=== PATIENT | female | born 1955 ===

== ENCOUNTER → 2016-10-01 | Outpatient (CLI) | payer OTHER | LOC: FIMAGING 12:05 | PROVIDERS: ATTEND Surgery | DX: Z45.2 Encounter for adjustment and management of vascular access device (principal) ==

== ENCOUNTER → 2016-10-30 | Outpatient (CLI) | payer OTHER ==
[~2016-10-30] MED LIST: GADOBUTROL 10 ML VIAL IVP ONE
== END ==
LOC: FIMAGING 14:15
DX: C79.51 Secondary malignant neoplasm of bone (principal); C50.411 Malignant neoplasm of upper-outer quadrant of right female breast
CPT/HCPCS: A9585

== ENCOUNTER → 2017-02-05 | Outpatient (CLI) | payer OTHER | LOC: FIMAGING 15:32 | PROVIDERS: ATTEND Internal Medicine Hematology & Oncology | DX: M25.552 Pain in left hip (principal); M89.9 Disorder of bone, unspecified; Z85.3 Personal history of malignant neoplasm of breast ==

== ENCOUNTER → 2017-03-18 | Outpatient (CLI) | payer OTHER | LOC: FIMAGING 14:51 | PROVIDERS: ATTEND Internal Medicine Hematology & Oncology | DX: K59.00 Constipation, unspecified (principal) ==

== ENCOUNTER → 2017-07-15 | Outpatient (CLI) | payer OTHER | LOC: FIMAGING 15:53 | PROVIDERS: ATTEND Internal Medicine Hematology & Oncology | DX: C79.51 Secondary malignant neoplasm of bone (principal); R51 Headache; R41.0 Disorientation, unspecified; Z85.3 Personal history of malignant neoplasm of breast | CPT/HCPCS: A9585 ==

== ENCOUNTER 2017-08-04 08:32 | Outpatient (CLI) | payer OTHER ==
[~2017-08-04 08:32] MED LIST changes: +FLUMAZENIL 0.5 MG/5 ML MDV IVP PRN; -GADOBUTROL 10 ML VIAL IVP ONE; +MEPERIDINE 25 MG/ML SYR IVP PRN; +MIDAZOLAM 2 MG/2 ML VIAL IVP PRN; +NALOXONE HCL 0.4 MG/ML INJ IVP PRN; +NS 1,000 ML IV SCH; +fentaNYL 100 MCG/2 ML INJ IVP PRN
[2017-08-04] MEDS ORDERED: NALOXONE HCL 0.4 MG/ML INJ ONE (08:56)
[2017-08-04] MEDS ORDERED: MIDAZOLAM 2 MG/2 ML VIAL ONE (08:57)
[2017-08-04] MEDS ORDERED: FLUMAZENIL 0.5 MG/5 ML MDV IVP ONE (08:57)
[2017-08-04] MEDS ORDERED: fentaNYL 100 MCG/2 ML INJ ONE (08:57)
[2017-08-04] MEDS ORDERED: BUPIVACAINE 0.25% 30 ML SDV ONE (09:35)
[2017-08-04] MEDS ORDERED: LIDOCAINE 1% 300 MG/30 ML SDV ONE (09:35)
[2017-08-04] MEDS ORDERED: ONDANSETRON 4 MG/2 ML VIAL ONE (09:43)
--- NOTE | 2017-08-04 10:22 | PDPROPOC ---
Sedation Plan of Care Sedation Plan of Care: vital signs stable, mental status noted (alert and oriented), patient educated of risks, benefits, alternatives, patient can tolerate sedation ASA Classification: ASA 2 Planned drugs: fentanyl, midazolam Mallampati Score: Class 3 Mallampati Reference Image: Patient passed 3-3-2 rule?: Yes
--- NOTE | 2017-08-04 10:29 | PDGENHP ---
History & Physical Chief Complaint: Liver lesions. H/o breast cancer. Evaluate for metastatic disease History of Present Illness: Liver lesions. H/o breast cancer. Evaluate for metastatic disease Relevant Physical Exam: comfortable Cardiorespiratory Assessment: RRR, Clear lungs
[2017-08-04] MEDS ORDERED: ONDANSETRON 4 MG/2 ML VIAL IVP PRN (11:08)
[2017-08-04 11:43] VITALS: PULSE 73; RESP 12
[2017-08-04 12:37] VITALS: BP 108/66; O2SAT 96
== END 2017-08-04 14:35 | disposition home or self-care (01) ==
LOC: FIMAGING 08:32
PROVIDERS: ATTEND Internal Medicine Hematology & Oncology
PROC: 0FB13ZX Excision of Right Lobe Liver, Percutaneous Approach, Diagnostic (ICD-10-PCS; principal; 2017-08-04 11:15)
DX: C78.7 Secondary malignant neoplasm of liver and intrahepatic bile duct (principal); Z85.3 Personal history of malignant neoplasm of breast
CPT/HCPCS: J1642; J2250; J2310; J2405; J3010

== ENCOUNTER 2017-08-14 23:53 | Emergency (ER) | payer OTHER ==
[2017-08-15 00:01] VITALS: TEMP 98.6
[2017-08-15] MEDS ORDERED: ONDANSETRON 4 MG/2 ML VIAL ONE (00:30)
[2017-08-15] MEDS ORDERED: ONDANSETRON 4 MG/2 ML VIAL IVP ONE (00:43)
[2017-08-15] MEDS ORDERED: NS 1,000 ML IV ONE ×2 (00:43→02:10)
[2017-08-15 00:59] LABS: PLATELET COUNT 279 10^3/uL (150-400)
--- NOTE | 2017-08-15 01:10 | EDPHY ---
H & P Stated Complaint: N/V Time Seen by Provider: 08/15/17 00:43 HPI/ROS: HPI The patient presents with abdominal pain, nausea and vomiting which began at about 3:00 p.m. Today. She was at home and felt nauseated. She tried to eat something, however this induced multiple episodes of yellowish vomitus. She then developed lower abdominal pain which she describes as a intermittent cramping. She does not have any diarrhea. She was constipated about 1 week ago and took laxatives and has been feeling well since then. She has not had a fever. Her last chemotherapy was about 1 month ago and she is planning on starting a new regimen tomorrow. She does have known liver Mets. She was unable to take her pain medication today because of her vomiting and was concerned. The vomiting is also exacerbating bone pain that she has from her bone metastases REVIEW OF SYSTEMS Constitutional: No fever, no chills. Eyes: No discharge. ENT: No sore throat. Cardiovascular: No chest pain, no palpitations. Respiratory: No cough, no shortness of breath. Gastrointestinal: See HPI Genitourinary: No hematuria. Musculoskeletal: No back pain. Skin: No rashes. Neurological: No headache. PMHx: Breast cancer with mets to bone and liver Soc Hx: Lives at home with PHYSICAL General Appearance: Alert, no distress Eyes: Pupils equal and round no pallor or injection ENT, Mouth: Mucous membranes moist Respiratory: There are no retractions, lungs are clear to auscultation Cardiovascular: Regular rate and rhythm Gastrointestinal: Abdomen is soft and non-tender, no masses, bowel sounds normal Neurological: A&O, moves all extremities Skin: Warm and dry, no rashes Musculoskeletal: Neck is supple non tender Extremities: symmetrical, full range of motion Psychiatric: Patient is oriented X 3, there is no agitation Source: Patient Exam Limitations: No limitations - Personal History Current Tetanus/Diphtheria Vaccine: Unsure Current Tetanus Diphtheria and Acellular Pertussis (TDAP): Unsure - Medical/Surgical History Hx Asthma: No Hx Chronic Respiratory Disease: No Hx Diabetes: No Hx Cardiac Disease: No Hx Renal Disease: No Hx Cirrhosis: No Hx Alcoholism: No Hx HIV/AIDS: No Hx Splenectomy or Spleen Trauma: No Other PMH: Breast CA, mastectomy - Social History Smoking Status: Never smoked Constitutional: Initial Vital Signs Temperature (C) 37 C 08/14/17 23:57 Heart Rate 100 08/14/17 23:57 Respiratory Rate 16 08/14/17 23:57 Blood Pressure 134/91 H 08/14/17 23:57 O2 Sat (%) 94 08/14/17 23:57 O2 Delivery Mode Room Air O2 (L/minute) 2 Allergies/Adverse Reactions: corn Allergy (Verified 07/29/17 15:14) Home Medications: Medication Instructions Recorded Effexor 150 mg PO DAILY 07/29/17 LORAZEPAM 0.5 mg PO HS PRN 07/29/17 morphINE IR 15 mg (*) 15 mg PO BID 07/29/17 Promethazine HCl [Phenergan 25mg 25 mg PO Q6H PRN #20 tab 08/15/17 (*)] Promethazine HCl [Phenergan 25mg 25 mg PO Q6H PRN #20 tab 08/15/17 (*)] Medical Decision Making - Diagnostics Imaging Results: CT abdomen pelvis with IV contrast demonstrates small pulmonary nodules, liver Mets are present, multiple bone mets are present, discussed with Dr. Abdi of Radiology. Imaging: Discussed imaging studies w/ administrative hearing officer Radiologist Differential Diagnosis: 62-year-old female with known breast cancer on chemotherapy with metastatic disease presents with her complaining of nausea and vomiting for the last several hours had lower abdominal pain. On exam, vital signs are normal, mucous membranes are dry, abdominal exam demonstrates tenderness in her lower quadrants. Differential diagnosis includes gastroenteritis, small-bowel obstruction, appendicitis, worsening liver Mets, complication of liver biopsy such as intra- abdominal bleeding. In the emergency department, patient was given 2 L of IV fluid, Zofran, Phenergan with improvement in her symptoms. Labs were checked and were relatively unremarkable except for slight increase in her liver tests as compared to prior. CT scan of her abdomen pelvis was performed which showed no intra-abdominal pathology except for her known liver Mets. She does have several bony lesions from her breast cancer that she was already aware of and is currently taking morphine 4. I have offered her admission to the hospital, however she has declined. She would like to go home and recuperate there. I will send her home with Phenergan as she has taken Zofran before which did not help her much. - Data Points Laboratory Results: Laboratory Results 08/15/17 00:41 08/15/17 00:41 08/15/1723/18 00:41 00:41 WBC 8.46 10^3/uL 10^3/uL (3.80-9.50) RBC 4.83 10^6/uL 10^6/uL (4.18-5.33) Hgb 14.1 g/dL g/dL (12.6-16.3) Hct 42.3 % % (38.0-47.0) MCV 87.6 fL fL (81.5-99.8) MCH 29.2 pg pg (27.9-34.1) MCHC 33.3 g/dL g/dL (32.4-36.7) RDW 12.9 % % (11.5-15.2) Plt Count 279 10^3/uL 10^3/uL (150-400) MPV 9.4 fL fL (8.7-11.7) Neut % (Auto) 81.7 % H % (39.3-74.2) Lymph % (Auto) 11.8 % L % (15.0-45.0) [place] % (Auto) 5.8 % % (4.5-13.0) Eos % (Auto) 0.1 % L % (0.6-7.6) Baso % (Auto) 0.2 % L % (0.3-1.7) Nucleat RBC Rel Count 0.0 % % (0.0-0.2) Absolute Neuts (auto) 6.91 10^3/uL H 10^3/uL (1.70-6.50) Absolute Lymphs (auto) 1.00 10^3/uL 10^3/uL (1.00-3.00) Absolute Monos (auto) 0.49 10^3/uL 10^3/uL (0.30-0.80) Absolute Eos (auto) 0.01 10^3/uL L 10^3/uL (0.03-0.40) Absolute Basos (auto) 0.02 10^3/uL 10^3/uL (0.02-0.10) Absolute Nucleated RBC 0.00 10^3/uL 10^3/uL (0-0.01) Immature Gran % 0.4 % % (0.0-1.1) Immature Gran # 0.03 10^3/uL 10^3/uL (0.00-0.10) Sodium 140 mEq/L mEq/L (135-145) Potassium 4.2 mEq/L mEq/L (3.5-5.2) Chloride 103 mEq/L mEq/L (97-110) Carbon Dioxide 22 mEq/l mEq/l (22-31) Anion Gap 15 mEq/L mEq/L (8-16) BUN 9 mg/dL mg/dL (7-23) Creatinine 0.6 mg/dL mg/dL (0.6-1.0) Estimated GFR > 60 Glucose 112 mg/dL H mg/dL (70-100) Calcium 10.4 mg/dL mg/dL (8.5-10.4) Total Bilirubin 0.8 mg/dL mg/dL (0.1-1.4) Conjugated Bilirubin 0.4 mg/dL mg/dL (0.0-0.5) Unconjugated Bilirubin 0.4 mg/dL mg/dL (0.0-1.1) AST 57 IU/L H IU/L (14-46) ALT 56 IU/L H IU/L (9-52) Alkaline Phosphatase 128 IU/L H IU/L (38-126) Total Protein 8.3 g/dL H g/dL (6.3-8.2) Albumin 4.7 g/dL g/dL (3.5-5.0) Lipase 65 IU/L IU/L (23-300) Medications Given: Discontinued Medications Sodium Chloride (Ns) 1,000 mls @ 0 mls/hr IV ONCE ONE PRN Reason: Wide Open Stop: 08/15/17 00:44 Last Admin: 08/15/17 00:45 Dose: 1,000 mls Sodium Chloride (Ns) 1,000 mls @ 0 mls/hr IV EDNOW ONE; Wide Open PRN Reason: Protocol Stop: 08/15/17 02:11 Last Admin: 08/15/17 02:44 Dose: 1,000 mls Morphine Sulfate (Morphine) 2 mg IVP EDNOW ONE Stop: 08/15/17 00:45 Last Admin: 08/15/17 00:56 Dose: 2 mg Morphine Sulfate (Morphine) 4 mg IVP EDNOW ONE Stop: 08/15/17 01:30 Last Admin: 08/15/17 01:31 Dose: 4 mg Ondansetron HCl (Zofran) 4 mg IVP EDNOW ONE Stop: 08/15/17 00:44 Last Admin: 08/15/17 00:45 Dose: 4 mg Promethazine HCl (Phenergan 25 Mg Prepack #4) 1 btl TAKEHOME EDNOW ONE Stop: 08/15/17 04:20 Last Admin: 08/15/17 04:33 Dose: 1 btl Departure - Departure Disposition: Home, Routine, Self-Care Clinical Impression: Nausea & vomiting Qualifiers: Vomiting type: unspecified Vomiting Intractability: non-intractable Qualified Code(s): R11.2 - Nausea with vomiting, unspecified Condition: Good Instructions: Acute Nausea and Vomiting (ED) Additional Instructions: Please follow-up with your oncologist later today. I recommend you take clear liquids and bland foods until your feeling better. Referrals: Dinesh Terrazas MD [Primary Care Provider] - As per Instructions Prescriptions: Promethazine HCl [Phenergan 25mg (*)] 25 mg PO Q6H PRN #20 tab PRN Reason: vomiting Promethazine HCl [Phenergan 25mg (*)] 25 mg PO Q6H PRN #20 tab PRN Reason: Nausea/Vomiting, Use 1st
[2017-08-15] MEDS ORDERED: IOPAMIDOL (ISOVUE-300) 100 ML BTL ONE (02:14)
[2017-08-15] MEDS ORDERED: PROMETHAZINE 25 MG PREPACK #4 BTL TAKEHOME ONE (04:19)
[2017-08-15 04:28] VITALS: BP 126/78; PULSE 75; RESP 19; O2SAT 98
== END 2017-08-15 04:38 | disposition home or self-care (01) ==
DX: R11.2 Nausea with vomiting, unspecified (principal); E86.9 Volume depletion, unspecified; Z85.3 Personal history of malignant neoplasm of breast
CPT/HCPCS: 96374; J2270; J2405; Q9967

== ENCOUNTER 2017-08-27 04:55 | Inpatient (IN) | payer OTHER ==
[2017-08-27] MEDS ORDERED: NS 1,000 ML IV ONE (05:02)
[2017-08-27] MEDS ORDERED: HYDROmorphONE/DILAUDID 1 MG/ML INJ IVP ONE (05:02)
[2017-08-27] MEDS ORDERED: ONDANSETRON 4 MG/2 ML VIAL IVP ONE (05:02)
--- NOTE | 2017-08-27 05:07 | EDPHY ---
H & P Time Seen by Provider: 08/27/17 04:55 HPI/ROS: HPI CHIEF COMPLAINT: Left hip pain, metastatic breast cancer HISTORY OF PRESENT ILLNESS: This patient very pleasant 62-year-old female she presents emergency room with left hip pain. She has been suffering from left hip pain for while now, she has a history of metastatic breast cancer she thinks she may have some lesions to her left hip. Additionally she reports lesions to her ribs, and liver. She is currently undergoing radiation treatment but not chemotherapy. She states she was initially diagnosed with breast cancer in 2010. She has had a right mastectomy. Hayde dissection. She has a right chest port. She decided come the emergency room as her left hip pain is been very severe and she is unable to sleep or get comfortable despite oral pain medicine at home. She states she is taking 15 mg morphine. Percocet for breakthrough. However it is unable to control her pain. Decided to come the emergency room for pain control. She denies any chest pain or shortness of breath. Denies fever. She is able to ambulate. Denies leg pain. Pain is localized to the left hip. 3/10 at rest. 9/[address] Dinesh Terrazas is her oncologist. Past Medical History: Breast cancer currently undergoing radiation Past Surgical History: Right mastectomy, hayde dissection Social History: Denies drugs alcohol tobacco. Resides locally. Family History: Noncontributory ROS REVIEW OF SYSTEMS: A comprehensive 10 point review of systems is otherwise negative aside from elements mentioned in the history of present illness. Exam Constitutional appears well nontoxic triage nursing summary reviewed, vital signs reviewed, awake/alert. Eyes normal conjunctivae and sclera, EOMI, PERRLA. HENT normal inspection, atraumatic, moist mucus membranes, no epistaxis, neck supple/ no meningismus, no raccoon eyes. Respiratory clear to auscultation bilaterally, normal breath sounds, no respiratory distress, no wheezing. Cardiovascular rate normal, regular rhythm, no murmur, no edema, distal pulses normal. Gastrointestinal soft, non-tender, no rebound, no guarding, normal bowel sounds, no distension, no pulsatile mass. Genitourinary no CVA tenderness. Musculoskeletal left hip: Range of motion limited due to pain, no significant tenderness with palpation, no midline vertebral tenderness, full range of motion , no calf swelling, no tenderness of extremities, no meningismus, good pulses, neurovascularly intact. Skin pink, warm, & dry, no rash, skin atraumatic. Neurologic awake, alert and oriented x 3, AAOx3, moves all 4 extremities equally, motor intact, sensory intact, CN II-XII intact, normal cerebellar, normal vision, normal speech. Psychiatric normal mood/affect. Heme/Lymph/Immune no lymphadenopathy. Differential Diagnosis: Includes but is not limited to in a particular order bony metastatic pain, pathological fracture, infection Medical Decision Making: Plan for this patient will access her port. Obtain basic blood work, x-ray left, IV Dilaudid 1 mg for pain control. Close reassessment. Most likely patient need to be admitted for pain control. Re-evaluation: X-ray left hip reviewed. No evidence of fracture. No evidence pathological fracture. Image interpreted myself. There is metastatic disease seen to the left proximal femur. This may be the cause of her pain. 0605: Blood work is reviewed. Pain is well controlled at this time with IV Dilaudid. Patient is requesting admission to the hospital for pain control. Will contact the hospitalist service for admission for metastatic pain control. Source: Patient, EMS - Medical/Surgical History Hx Asthma: No Hx Chronic Respiratory Disease: No Hx Diabetes: No Hx Cardiac Disease: No Hx Renal Disease: No Hx Cirrhosis: No Hx Alcoholism: No Hx HIV/AIDS: No Hx Splenectomy or Spleen Trauma: No Other PMH: Breast CA, mastectomy - Social History Smoking Status: Never smoked Constitutional: Initial Vital Signs Temperature (C) 37 C 08/27/17 04:54 Heart Rate 92 08/27/17 04:54 Respiratory Rate 16 08/27/17 04:54 Blood Pressure 125/89 H 08/27/17 04:54 O2 Sat (%) 94 08/27/17 04:54 O2 Delivery Mode Nasal Cannula O2 (L/minute) 2 Allergies/Adverse Reactions: corn Allergy (Verified 07/29/17 15:14) Home Medications: Medication Instructions Recorded LORazepam [Ativan (*)] 0.5 mg PO DAILY PRN 07/29/17 Venlafaxine Xr [Effexor Xr 75MG 150 mg PO DAILY 07/29/17 (*)] morphINE SR [Ms Contin/Oramorph 15 15 mg PO QID 07/29/17 mg (*)] Bisacodyl [Dulcolax] 5 mg PO DAILY PRN 08/27/17 Cholecalciferol Vit D3 [Vitamin D3 10,000 units PO DAILY 08/27/17 2000 units tab (OTC)] Herbals/Supplements -Info Only 1 ea PO DAILY 08/27/17 Morphine Sulfate [Morphine Sulfate 2.5 ml PO Q2-4PRN PRN 08/27/17 20mg/5ml] Naproxen Sodium [Aleve 220 MG (*)] 220 mg PO BID PRN 08/27/17 Polyethylene Glycol 3350 [Miralax 17 gm PO DAILY PRN 08/27/17 17 gm (*)] Promethazine HCl [Phenergan 25mg 25 mg PO Q6H PRN 08/27/17 (*)] Sennosides/Docusate Sodium 1 each PO BID PRN 08/27/17 [Senna-S Tablet] oxyCODONE/APAP 5/325 [Percocet 1 tab PO Q4-6PRN PRN 08/27/17 5/325 (*)] Medical Decision Making - Data Points Laboratory Results: Laboratory Results 08/27/17 05:19 08/27/17 05:19 Medications Given: Gabapentin (Neurontin) 100 mg PO TID PRN PRN Reason: Pain, Breakthrough Stop: 02/23/18 08:59 Last Admin: 08/27/17 20:26 Dose: 100 mg Hydromorphone HCl (Dilaudid) 0.5 - 1 mg IVP Q3HRS PRN PRN Reason: Pain, Severe Unable to Take PO Stop: 09/06/17 11:09 Last Admin: 08/27/17 21:28 Dose: 1 mg Ketorolac Tromethamine (Toradol) 30 mg IVP Q6HRS [facility] Stop: 09/01/17 14:29 Last Admin: 08/27/17 14:44 Dose: 30 mg Methocarbamol (Robaxin) 1,000 mg PO TID [facility] Stop: 02/23/18 08:59 Last Admin: 08/27/17 21:28 Dose: 1,000 mg Morphine Sulfate (Ms Contin/Oramorph) 15 mg PO QID [facility] Stop: 09/06/17 15:59 Last Admin: 08/27/17 20:26 Dose: 15 mg Oxycodone/Acetaminophen (Percocet 5/325) 1 tab PO Q4 PRN PRN Reason: Pain, Severe Stop: 09/06/17 13:53 Last Admin: 08/27/17 16:50 Dose: 1 tab Prochlorperazine Maleate (Compazine) 10 mg PO Q6HRS PRN PRN Reason: Nausea/Vomiting, Use 3rd Stop: 02/23/18 14:28 Last Admin: 08/27/17 15:07 Dose: 10 mg Venlafaxine HCl (Effexor Xr) 150 mg PO DAILY [facility] Stop: 02/23/18 13:44 Last Admin: 08/27/17 14:41 Dose: 150 mg Discontinued Medications Diphenhydramine HCl (Benadryl Injection) 25 mg IVP EDNOW ONE Stop: 08/27/17 10:20 Last Admin: 08/27/17 10:23 Dose: 25 mg Hydromorphone HCl (Dilaudid) 1 mg IVP EDNOW ONE Stop: 08/27/17 05:03 Last Admin: 08/27/17 05:20 Dose: 1 mg Hydromorphone HCl (Dilaudid) 1 mg IVP EDNOW ONE Stop: 08/27/17 06:05 Last Admin: 08/27/17 06:06 Dose: 1 mg Hydromorphone HCl (Dilaudid) 0.5 - 1 mg IVP Q3HRS PRN PRN Reason: Pain, Severe Unable to Take PO Stop: 09/06/17 06:27 Last Admin: 08/27/17 06:47 Dose: 1 mg Sodium Chloride (Ns) 1,000 mls @ 0 mls/hr IV EDNOW ONE; Wide Open PRN Reason: Protocol Stop: 08/27/17 05:03 Last Admin: 08/27/17 05:19 Dose: 1,000 mls Ketorolac Tromethamine (Toradol) 30 mg IVP Q6HRS PRN PRN Reason: Pain, Inflammatory Stop: 09/01/17 06:32 Last Admin: 08/27/17 07:29 Dose: 30 mg Ondansetron HCl (Zofran) 4 mg IVP EDNOW ONE Stop: 08/27/17 05:03 Last Admin: 08/27/17 05:19 Dose: 4 mg Departure - Departure Disposition: [facility] Inpatient Acute Clinical Impression: Hip pain Qualifiers: Laterality: left Qualified Code(s): M25.552 - Pain in left hip Condition: Fair
[2017-08-27] MEDS ORDERED: HYDROmorphONE/DILAUDID 2 MG/ML INJ ONE (05:16)
[2017-08-27 05:28] LABS: PLATELET COUNT 235 10^3/uL (150-400)
[2017-08-27 05:39] LABS: INR 0.95 (0.83-1.16); PROTIME(PATIENT) 12.9 SEC (12.0-15.0)
[2017-08-27] MEDS ORDERED: HYDROmorphONE/DILAUDID 2 MG/ML INJ IVP ONE (06:04)
[2017-08-27] MEDS ORDERED: LORazepam 0.5 MG TAB PO PRN ×2 (06:28→13:31)
[2017-08-27] MEDS ORDERED: ONDANSETRON DISINTEGRATING 4 MG TAB PO PRN (06:28)
[2017-08-27] MEDS ORDERED: HYDROmorphONE/DILAUDID 1 MG/ML INJ IVP PRN (06:28)
[2017-08-27] MEDS ORDERED: ACETAMINOPHEN 325 MG TAB PO PRN (06:28)
[2017-08-27] MEDS ORDERED: KETOROLAC 30 MG/1 ML SDV IVP PRN (06:33)
[2017-08-27] MEDS ORDERED: KETOROLAC 30 MG/1 ML SDV ONE (07:20)
[2017-08-27] MEDS ORDERED: DIAZEPAM 5 MG TAB PO PRN (07:43)
--- NOTE | 2017-08-27 08:52 | GHP ---
[f rep st] HISTORY AND PHYSICAL DATE OF ADMISSION: 08/27/2017 SOURCE: Patient provides history, appears reliable, at bedside, supplements details. CHIEF COMPLAINT: Left hip pain. HISTORY OF PRESENT ILLNESS: This is a very pleasant 62-year-old female with an unfortunate history o f metastatic breast cancer who presents to the emergency department with complaints of acute on chron ic left hip pain. Patient reports that her pain started approximately 1 month ago and has progressiv mague worsened since that time. More acutely, overnight, patient was not able to fall asleep. She has not had any recent trauma or injury. She does have a history of bony METS and was recently started on radiation therapy with her next anticipated treatment being later this afternoon at 4 p.m. The pa ten reports deep seated sharp pain in her left buttock, worse with any kind of movement, including coughing or laughing. The patient recently was started on pain management therapy by her oncologist with morphine 50 mg scheduled initially for twice daily which patient has recently increased to four times daily. She also has Percocet though she cannot recall what she has been taking four times silvestre y. The patient's pain initially responded very well to Aleve, but over time the effectiveness has de creased. The patient also has Ativan p.r.n. which has not significantly improved any pain but did al leviate the patient's nausea. She has been having some increased constipation for which she has been treating with MiraLAX and [id number]. Patient also has been noting some difficulties with ta fred deeper breaths secondary to increased pain in her hip and buttock. Patient also recently in the last several weeks has been having increased pain in her shoulder blades. Patient denies any numbne ss, tingling, or focal weakness. REVIEW OF SYSTEMS: Negative except as noted above. ALLERGIES: HOME MEDICATIONS: Phenergan, Compazine, morphine, lorazepam, Effexor, MiraLAX, magnesium citrate. PAST MEDICAL HISTORY: Significant for metastatic breast cancer. PAST SURGICAL HISTORY: Right mastectomy with dissection. FAMILY HISTORY: Family history significant for ovarian cancer in paternal grandmother and hypertensi on in siblings. SOCIAL HISTORY: Patient is . She does not smoke, drink, or do drugs. CODE STATUS: Patient does not want any heroic measures, DNR/DNI. PHYSICAL EXAMINATION: VITAL SIGNS: Vitals upon arrival to the emergency department, blood pressure 125/89, heart rate is 92, respiratory rate 16, O2 saturation 94% on room air with a temperature of 37 .0. Current vitals, blood pressure 122/80, heart rate 81, respiratory rate 16, O2 saturation is 98% on 2 L by nasal cannula. GENERAL: No acute distress. Patient lays quite still in bed. Appears unco mfortable with movement, but in good spirits. HEAD: Normocephalic, atraumatic. EYES: Extraocular muscles are intact. Pupils equal, round, decreased reactivity to light bilaterally but symmetric. N o scleral icterus or conjunctival injection. ENT: Mucous membranes appear moist. No oropharyngeal erythema or exudates. No nasal discharge. NECK: Supple. Trachea midline. CARDIOVASCULAR: Regular r ate and rhythm. No murmurs, rubs, or gallops appreciated. RESPIRATORY: Unlabored breathing. Lungs are clear to auscultation bilaterally. No wheezes, rales, or rhonchi. ABDOMEN: Positive bowel soun ds. Soft, nontender to palpation. No rebound, guarding, or masses appreciated. : No suprapubic tenderness to palpation. No Alejo catheter in place. EXTREMITIES: Limited exam secondary to patien t's complaint of left gluteal pain. Patient without any tenderness to palpation over the trochanter, the lateral hip. Strength of distal extremities is intact 5/5. NEUROLOGIC: Sensation intact. Cran ial nerves grossly intact. No facial drooping. Patient is awake, alert, and oriented x4. PSYCH: P atient's thought process, content and questions are appropriate. She is pleasant and cooperative. LABORATORY STUDIES: WBC 3.02, H and H 11.3 and 33.7, MCV 86.0, platelet count is 235, no bands. PT is 12.9, INR 0.95, PTT is 26.2. Sodium is 139, potassium 4.1, chloride 101, CO2 is 27, anion gap 11, BUN is 13, creatinine 0.5. GFR i s greater than 60, glucose 96, calcium 5.3. Hip x-ray images reviewed myself. Report is pending. Narrowed joint space, no fractures. Compared t o x-rays from 02/09/2017 without significant change. ASSESSMENT AND PLAN: A pleasant 62-year-old female with history of metastatic breast cancer with com plaints of acute on chronic intractable left hip pain. Patient complaints her symptoms are less late ral and more posterior and gluteal. I was not able to palpate. The patient reports worsening with an y movement. She has a history of bony metastatic disease which could be related to this. She does s eem to be responding after the 3rd dose of Dilaudid in the emergency department. We will try to make some changes to her current medication regimen. Patient did report that NSAIDs seemed to improve he r pain the best previously. We will do a trial dose of Toradol. Her renal function at this time is i ntact. Dilaudid IV p.r.n. and Valium. Will leave p.r.n. gabapentin and Robaxin which was discussed with the patient. She may benefit from either an increase or transition in therapy from her p.o. mor phine at home to p.o. Dilaudid. We will have day team re-evaluate and further discuss with patient. Primary oncologist is Dr. Terrazas. 1. Metastatic breast cancer. The patient currently undergoing XRT and reports appointment at 4 p.m. We will see if can coordinate for patient to receive her treatment while inpatient. 2. Anemia, slightly decreased from August, but likely represents anemia of chronic disease with histo ry of breast cancer. 3. Leukopenia, mild, stable. 4. Fluids, electrolytes and nutrition. Encouraged oral intake. Electrolytes monitored and replace p.r.n. 5. Prophylaxis. SCDs, holding anticoagulation and we will try to mobilize patient once pain is unde r better control. 6. Code status is DNR/DNI. 7. Disposition. Patient is admitted to observation on medical floor at this time. /[id number]/MODL
[2017-08-27] MEDS: METHOCARBAMOL 500 MG TAB PO SCH ×3 (10:11→21:28)
[2017-08-27] MEDS ORDERED: MORPHINE SULFATE PO PRN (13:31)
[2017-08-27] MEDS ORDERED: BISACODYL 5 MG EC TAB PO PRN (13:31)
[2017-08-27] MEDS ORDERED: OXYCODONE/APAP 5/325 TAB PO PRN (13:31)
[2017-08-27] MEDS ORDERED: SENNOSIDES/DOCUSATE SODIUM TAB PO PRN (13:31)
[2017-08-27] MEDS ORDERED: morphINE 10 MG/0.5 ML UDSYR PO PRN (14:06)
--- NOTE | 2017-08-27 14:31 | HOSPPROG ---
Hospitalist Progress Note Assessment/Plan: pt seen and examined - pain better today. cont pain control. will get radiation today Objective: Vital Signs Temp Pulse Resp BP Pulse Ox 36.9 C 78 17 111/79 96 08/27/17 13:49 08/27/17 13:49 08/27/17 13:49 08/27/17 13:49 08/27/17 13:49 PT 12.9 SEC (12.0-15.0) 08/27/17 05:19 INR 0.95 (0.83-1.16) 08/27/17 05:19 ICD10 Worksheet Patient Problems: Problems Problem Status Onset Hip pain Acute
[2017-08-27] MEDS: VENLAFAXINE XR 75 MG CAP PO SCH (14:41)
[2017-08-27] MEDS: KETOROLAC 30 MG/1 ML SDV IVP SCH ×2 (14:44→23:23)
[2017-08-27] MEDS: HYDROmorphONE/DILAUDID 2 MG/ML INJ IVP PRN ×3 (14:45→21:28)
[2017-08-27] MEDS: PROCHLORPERAZINE MALEATE 10 MG TAB PO PRN (15:07)
[2017-08-27] MEDS: morphINE SR 15 MG TAB PO SCH ×2 (16:50→20:26)
[2017-08-27] MEDS: OXYCODONE/APAP 5/325 TAB PO PRN ×2 (16:50→23:31)
[2017-08-27] MEDS ORDERED: KETOROLAC 30 MG/1 ML SDV IVP SCH (18:00)
[2017-08-27] MEDS: GABAPENTIN 100 MG CAP PO PRN (20:26)
[2017-08-27] MEDS ORDERED: diphenhydrAMINE 25 MG CAP PO PRN (23:15)
[2017-08-28] MEDS: HYDROmorphONE/DILAUDID 2 MG/ML INJ IVP PRN ×3 (00:39→09:59)
[2017-08-28 05:00] LABS: PLATELET COUNT 188 10^3/uL (150-400)
[2017-08-28] MEDS: morphINE SR 15 MG TAB PO SCH ×4 (05:04→21:10)
[2017-08-28] MEDS: KETOROLAC 30 MG/1 ML SDV IVP SCH ×3 (05:09→18:04)
[2017-08-28] MEDS: GABAPENTIN 100 MG CAP PO PRN (08:22)
--- NOTE | 2017-08-28 09:27 | GHP ---
[f rep st] HISTORY AND PHYSICAL DATE OF ADMISSION: 08/27/2017 HISTORY OF PRESENT ILLNESS: Edelmira is a pleasant 62-year-old female who is followed by my partner, Dr. Analisa Terrazas. She was diagnosed initially with stage IIIC breast carcinoma in April of 2011. She h as since developed metastatic disease involving multiple bony sites. More recently, her therapy has been switched to eribulin, which began in July of this year. She has painful bony metastasis inv olving T3/4, L2 and S2. She is receiving palliative radiation to these sites. She was admitted to [facility] with worsening pain in the sacral area. Her pain is better on her current inpatient pain regimen. She denies associated lower extremity weakness or numbness. PAST MEDICAL HISTORY: Metastatic breast carcinoma. The patient has no other significant past medica l history. PAST SURGICAL HISTORY: Right mastectomy. FAMILY MEDICAL HISTORY: Notable for ovarian carcinoma in a paternal grandmother. SOCIAL HISTORY: The patient is to [place]. She lives locally. She is a nonsmoker. 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 REVIEW OF SYSTEMS: As outlined above. PHYSICAL EXAM: Patient is resting comfortably in bed. She is in no acute distress. She is able to lift her left leg against gravity, however, this produces pain in the back. She has an area of repro ducible tenderness in the left lateral sacral area. No extremity swelling or edema. She is alert, o riented, and appropriate. STUDIES: Hip x-ray done yesterday reveals subtle bone lesions in the sacral area with no evidence of fracture. White count 1.86, hemoglobin 9.6, platelet count 188,000. Sodium 142, potassium 4.8, chloride 107, b icarb 29, BUN 8, creatinine 0.6, calcium 8.4. IMPRESSION: 1. Metastatic breast carcinoma. 2. Symptomatic bony metastatic disease involving T3/T4, L2, S2 (patient receiving palliative radiati on). 3. Chemotherapy-induced leukopenia. 4. Chemotherapy-induced anemia. PLAN: Edelmira is a pleasant 62-year-old female with metastatic breast carcinoma who presents with worse manuel bony pain. I was able to discuss her case this morning with radiation oncologist, Dr. Houston roman. He confirms that all of the above sites are receiving radiation including her currently symptoma tic area at S2. Her pain is under better control with her current pain medicines. She was given a trial of gabapenti n, which was helpful. I will increase her gabapentin to [address] Douglass plans to discu ss her radiation treatment plan with her today at her visit. She does not appear to have any lower e xtremity neurologic compromise currently. She will be followed closely in the hospital. Hopefully h er pain will begin to improve with radiation. Our service will continue to follow her during this spital stay and I will notify Dr. Terrazas of her admission. The patient's questions were answered. Total time for today's visit was approximately 45 minutes of which greater than 50% was spent licensed professional counselor ing care coordination. /[id number]/MODL
[2017-08-28] MEDS ORDERED: GABAPENTIN 100 MG CAP PO ONE (10:00)
[2017-08-28] MEDS: METHOCARBAMOL 500 MG TAB PO SCH ×3 (10:00→21:09)
[2017-08-28] MEDS: VENLAFAXINE XR 75 MG CAP PO SCH (10:00)
[2017-08-28] MEDS: GABAPENTIN 300 MG CAP PO SCH ×3 (10:05→21:09)
--- NOTE | 2017-08-28 11:48 | ASMTCMCOM ---
CM Note CM Note Notes: Patient with history of metastatic breast cancer arrives with complaints of hip pain. Per her oncologist Dr Douglass, she is receiving radiation to the site of pain. She has radiation scheduled today at 1200. Patient is and her 28 year old daughter also lives at home. She wonders if she might need more help at home with things like getting out of bed. I explained how private duty caregivers work and offered her a list of agencies if she is interested. She also might benefit from skilled services, as well. She will let us know if she wants us to make any referrals or give her a list of private duty agencies. Date Signed: 08/28/2017 11:47 AM Electronically Signed By:Rissa Martinez RN
[2017-08-28] MEDS: PROCHLORPERAZINE MALEATE 10 MG TAB PO PRN (11:59)
--- NOTE | 2017-08-28 13:40 | HOSPPROG ---
Hospitalist Progress Note Assessment/Plan: * Metastatic breast cancer to bone with intractable pain * Oncology to discuss changing radiation targets to include hip * will try oral dilaudid * cont scheduled toradol * neurontin increased as well *DVT prophylaxis * lovenox Subjective: having a little more pain this morning Objective: Vital Signs Temp Pulse Resp BP Pulse Ox 37.1 C 87 16 109/66 92 08/28/17 12:25 08/28/17 12:25 08/28/17 12:25 08/28/17 12:25 08/28/17 12:25 Laboratory Results 08/28/17 04:30 08/28/17 04:30 08/27/17 08/28/17 08/29/17 05:59 05:59 05:59 Intake Total 800 Output Total 950 550 Balance -150 -550 PT 12.9 SEC (12.0-15.0) 08/27/17 05:19 INR 0.95 (0.83-1.16) 08/27/17 05:19 - Physical Exam Constitutional: no apparent distress, appears nourished, not in pain Eyes: anicteric sclera, EOMI Ears, Nose, Mouth, Throat: moist mucous membranes Respiratory: no respiratory distress Skin: warm Neurologic: AAOx3 Psychiatric: interacting appropriately, not anxious, not encephalopathic, thought process linear ICD10 Worksheet Patient Problems: Problems Problem Status Onset Hip pain Acute
[2017-08-28] MEDS: ENOXAPARIN 40 MG/0.4 ML SYR SC SCH (14:10)
[2017-08-28] MEDS: HYDROmorphONE/DILAUDID 2 MG TAB PO PRN (21:13)
[2017-08-29] MEDS: KETOROLAC 30 MG/1 ML SDV IVP SCH ×2 (00:27→05:06)
[2017-08-29] MEDS: morphINE SR 15 MG TAB PO SCH ×4 (05:06→22:20)
[2017-08-29] MEDS: HYDROmorphONE/DILAUDID 2 MG TAB PO PRN ×3 (06:25→18:22)
[2017-08-29] MEDS: VENLAFAXINE XR 75 MG CAP PO SCH (07:59)
[2017-08-29] MEDS: GABAPENTIN 300 MG CAP PO SCH ×3 (08:00→22:19)
[2017-08-29] MEDS: METHOCARBAMOL 500 MG TAB PO SCH ×3 (08:00→22:19)
[2017-08-29] MEDS: ENOXAPARIN 40 MG/0.4 ML SYR SC SCH (08:00)
--- NOTE | 2017-08-29 09:52 | HOSPPROG ---
Hospitalist Progress Note Assessment/Plan: # pain d/t bony metastatic disease from breast cancer - cont dilaudid, PO, IV - cont morphine SR, gabapentin - trial of decadron - cont XRT to L hip area - oncology to clarify that this area is appropriately targeted # dvt ppx - lovenox Subjective: ongoing pain L hip/buttocks - possibly slightly improved Objective: Vital Signs Temp Pulse Resp BP Pulse Ox 36.8 C 75 16 107/69 94 08/29/17 07:34 08/29/17 07:34 08/29/17 07:34 08/29/17 07:34 08/29/17 07:34 Laboratory Results 08/28/17 04:30 08/28/17 04:30 08/28/17 08/29/17 08/30/17 05:59 05:59 05:59 Intake Total 800 410 200 Output Total 950 850 800 Balance -150 -440 -600 PT 12.9 SEC (12.0-15.0) 08/27/17 05:19 INR 0.95 (0.83-1.16) 08/27/17 05:19 - Physical Exam Constitutional: no apparent distress Cardiovascular: regular rate and rhythym, no murmur, rub, or gallop Respiratory: no respiratory distress, no rales or rhonchi Gastrointestinal: soft, non-tender abdomen, no palpable masses Musculoskeletal: other (pain over L buttocks - no visible abnormality) ICD10 Worksheet Patient Problems: Problems Problem Status Onset Hip pain Acute
[2017-08-29] MEDS: DEXAMETHASONE 4 MG/ML VIAL IVP SCH ×3 (10:42→18:22)
[2017-08-29] MEDS: KETOROLAC 15 MG/1 ML SDV IVP PRN ×2 (11:41→22:18)
--- NOTE | 2017-08-29 12:17 | PDMN ---
Medical Necessity Medical necessity: [facility] oncology: severe pain with new bony mets mult. sights-( Metastatic Br. Ca) receiving palliative radiation, - ongoing pain req > 2 midnights med nec tx.
--- NOTE | 2017-08-29 14:43 | SOAPPROG ---
SOAP Progress Note Assessment/Plan: Assessment: 1) Metastatic breast cancer 2) Symptomatic bone disease at T3/4, L2, S2 (receiving radiation therapy) 3) Chemotherapy induced cytopenias Plan: Patient continues to receive palliative XRT. Her pain persists, but is under better control currentl. She is taking mainly oral Dilaudid. Dexamethasone has been added which appears to have been helpful. Will continue Gabapentin as well. Home when pain adequately controlled on oral medication. Repeat CBC in AM 08/29/17 14:24 08/29/17 14:44 Subjective: Pain somewhat better today. Received XRT today Objective: Vital Signs Temp Pulse Resp BP Pulse Ox 36.7 C 83 14 121/79 H 92 08/29/17 12:47 08/29/17 12:47 08/29/17 12:47 08/29/17 12:47 08/29/17 12:47 08/28/17 08/29/17 08/30/17 05:59 05:59 05:59 Intake Total 400 Output Total 301 Balance 99 PT 12.9 SEC (12.0-15.0) 08/27/17 05:19 INR 0.95 (0.83-1.16) 08/27/17 05:19 - Time Spent With Patient Time Spent With Patient: 15 minutes Physical Exam - Physical Exam General Appearance: alert, no apparent distress EENT: PERRL/EOMI Neuro/Psych: alert, normal mood/affect ICD10 Worksheet Patient Problems: Problems Problem Status Onset Hip pain Acute
[2017-08-30] MEDS ORDERED: MAG HYDROX/AL HYDROX/SIMETH 30 ML UDCUP PO PRN (00:48)
[2017-08-30] MEDS: HYDROmorphONE/DILAUDID 2 MG TAB PO PRN ×2 (00:49→05:19)
[2017-08-30] MEDS: DEXAMETHASONE 4 MG/ML VIAL IVP SCH ×5 (00:49→23:47)
[2017-08-30] MEDS: KETOROLAC 15 MG/1 ML SDV IVP PRN (05:18)
[2017-08-30] MEDS: morphINE SR 15 MG TAB PO SCH ×4 (05:19→21:35)
[2017-08-30 05:39] LABS: PLATELET COUNT 227 10^3/uL (150-400)
[2017-08-30] MEDS ORDERED: IBUPROFEN 200 MG TAB PO PRN (08:54)
--- NOTE | 2017-08-30 09:01 | HOSPPROG ---
Hospitalist Progress Note Assessment/Plan: # pain d/t bony metastatic disease from breast cancer - better after stsrting steroids - attempt to move to PO control today with ibup, apap, dilaudid PO, morphine SR - valium HS if difficulty sleeping with decadron - cont XRT to L hip area - oncology to clarify that this area is appropriately targeted # dvt ppx - lovenox # dispo - possibly tomorrow if pain controlled Subjective: pain down from 11/30 to 09/30 today Objective: Vital Signs Temp Pulse Resp BP Pulse Ox 36.8 C 72 16 116/73 97 08/30/17 05:05 08/30/17 05:05 08/30/17 05:05 08/30/17 05:05 08/30/17 05:05 Laboratory Results 08/30/17 05:30 08/30/17 05:30 08/29/17 08/30/17 08/31/17 05:59 05:59 06:59 Intake Total 1950 Output Total 1376 Balance 574 PT 12.9 SEC (12.0-15.0) 08/27/17 05:19 INR 0.95 (0.83-1.16) 08/27/17 05:19 - Physical Exam Constitutional: no apparent distress, appears nourished Cardiovascular: regular rate and rhythym, no murmur, rub, or gallop Respiratory: no respiratory distress, no rales or rhonchi Gastrointestinal: soft, non-tender abdomen, no palpable masses ICD10 Worksheet Patient Problems: Problems Problem Status Onset Hip pain Acute
[2017-08-30] MEDS: ENOXAPARIN 40 MG/0.4 ML SYR SC SCH (09:18)
[2017-08-30] MEDS: VENLAFAXINE XR 75 MG CAP PO SCH (09:18)
[2017-08-30] MEDS: ACETAMINOPHEN 500 MG TAB PO SCH ×3 (09:19→21:35)
[2017-08-30] MEDS: METHOCARBAMOL 500 MG TAB PO SCH ×3 (09:20→21:36)
[2017-08-30] MEDS: GABAPENTIN 300 MG CAP PO SCH ×3 (09:20→21:35)
[2017-08-30] MEDS: CALCIUM CARBONATE 500 MG CHEWABLE TAB PO PRN (18:09)
[2017-08-30] MEDS: POLYETHYLENE GLYCOL 3350 17 GM PKT PO PRN (21:50)
[2017-08-31] MEDS: CALCIUM CARBONATE 500 MG CHEWABLE TAB PO PRN (00:35)
[2017-08-31] MEDS: DEXAMETHASONE 4 MG/ML VIAL IVP SCH ×3 (05:53→11:45)
[2017-08-31] MEDS: morphINE SR 15 MG TAB PO SCH ×2 (05:53→11:43)
[2017-08-31] MEDS: VENLAFAXINE XR 75 MG CAP PO SCH (08:19)
[2017-08-31] MEDS: POLYETHYLENE GLYCOL 3350 17 GM PKT PO PRN (08:19)
[2017-08-31] MEDS: METHOCARBAMOL 500 MG TAB PO SCH (08:19)
[2017-08-31] MEDS: GABAPENTIN 300 MG CAP PO SCH (08:20)
[2017-08-31] MEDS: ENOXAPARIN 40 MG/0.4 ML SYR SC SCH (08:20)
[2017-08-31] MEDS: ACETAMINOPHEN 500 MG TAB PO SCH (08:20)
[2017-08-31] MEDS ORDERED: MAGNESIUM HYDROXIDE 30 ML UDCUP PO PRN (09:48)
[2017-08-31] MEDS ORDERED: LACTULOSE 20 GM/30 ML UDCUP PO PRN (09:48)
[2017-08-31] MEDS ORDERED: BISACODYL 10 MG SUPP PR PRN (09:48)
--- NOTE | 2017-08-31 10:24 | GDS ---
[f rep st] DISCHARGE SUMMARY ALL DIAGNOSES: 1. Intractable pain from bony metastatic disease. 2. Metastatic breast cancer followed by Dr. Terrazas. HOSPITAL COURSE: A 62-year-old female with known bony metastatic disease in her spine as well as pel vis, presents with uncontrolled pain due to this. She has been receiving palliative radiation. She was started on steroids with a very good response. Her pain is decreased significantly. She, of cou rse, still does have some pain although it is tolerable now. She has been on oral narcotics includin g long-acting morphine at 15 mg four times daily as well as oral Dilaudid. She was also started on g abapentin. She is receiving prescriptions for all of these. I have given her a prescription for Pro tonix for GI prophylaxis in the setting of steroid use. Also I have given her a prescription for Linda ium as she has had significant anxiety being on steroids. She will follow up with Dr. Terrazas in about 2 weeks. She is comfortable with this plan. BILLING: I spent more than 30 minutes on the day of discharge coordinating care. /[id number]/MODL
[2017-08-31] MEDS: HYDROmorphONE/DILAUDID 2 MG TAB PO PRN (11:42)
[2017-08-31] MEDS ORDERED: DEXAMETHASONE 4 MG TAB PO ONE (12:00)
[2017-08-31 14:01] VITALS: BP 126/86; PULSE 66; RESP 15; TEMP 98.1; O2SAT 96
--- NOTE | 2017-08-31 14:51 | PDIAF ---
- Diagnosis Diagnosis: metaatatic cancer Code Status: Do Not Resuscitate - Medication Management Discharge Medications: Medications to Continue on Transfer Venlafaxine Xr [Effexor Xr 75MG (*)] 150 mg PO DAILY 07/29/17 [Last Taken ] morphINE SR [Ms Contin/Oramorph 15 mg (*)] 15 mg PO QID 07/29/17 [Last Taken 01/07 03:00] Bisacodyl [Dulcolax] 5 mg PO DAILY PRN 08/27/17 [Last Taken Unknown] Cholecalciferol Vit D3 [Vitamin D3 2000 units tab (OTC)] 10,000 units PO DAILY 08/27/17 [Last Taken 08/26/17] Herbals/Supplements -Info Only 1 ea PO DAILY 08/27/17 [Last Taken Unknown] Polyethylene Glycol 3350 [Miralax 17 gm (*)] 17 gm PO DAILY PRN 08/27/17 [Last Taken Unknown] Sennosides/Docusate Sodium [Senna-S Tablet] 1 each PO BID PRN 08/27/17 [Last Taken Unknown] Dexamethasone [Decadron 2 MG (*)] 2 mg PO DAILY #80 tab 08/31/17 [Last Taken Unknown] Diazepam [Valium 5 MG (*)] 5 - 10 mg PO Q6HRS PRN #30 tab 08/31/17 [Last Taken Unknown] Gabapentin [Neurontin 300 MG (*)] 300 mg PO TID #90 cap 08/31/17 [Last Taken Unknown] HYDROmorphone HCL [Dilaudid 2 mg (*)] 2 - 4 mg PO Q4HRS PRN #60 tab 08/31/17 [ Last Taken Unknown] Ondansetron Odt [Zofran Odt 4 mg (*)] 4 mg PO Q4HRS PRN #30 tab 08/31/17 [Last Taken Unknown] Pantoprazole Sodium [Protonix 40mg (*)] 40 mg PO DAILY #30 tab 08/31/17 [Last Taken Unknown] Discharge Medications: Refer to the Discharge Home Medication list for PRN reason. - Orders Services needed: Registered Nurse Additional: palliative care, eval and treat - Follow Up Care Current Providers and Referrals: Dinesh Terrazas MD [Medical Doctor] - Patient,NotPresent [Unknown] - As per Instructions
--- NOTE | 2017-08-31 18:02 | ASDISCHSUM ---
Discharge Information Plan Status: Medically Cleared to Leave: Discharge Date:08/31/2017 02:46 PM CM D/C Disposition: ADT D/C Disposition:Home, Routine, Self-Care Projected Discharge Date:08/31/2017 11:00 AM Transportation at D/C: Discharge Delay Reason: Follow-Up Date:08/31/2017 11:00 AM Discharge Slot: Final Diagnosis: Placement Information Referral Type:Palliative Care Referral ID:[id number] Provider Name:[facility] Address 1:[address] [facility] Phone Number: Address 2: Fax Number: City:[place] Selection Factors: State:[place] Patient Contact Information Contact Name:JORGE LUIS Relationship: Address:[address] City:[place] Alternate Phone: State/Zip Code:[place] [address] Email: Financial Information Financial Class:Santi Phelps Primary Plan Desc:[facility]I [place]OWN Primary Plan Number:[id number] Secondary Plan Desc: Secondary Plan Number: Assessment Information [facility] CM Progress Note CM Note CM Note Notes: Patient with history of metastatic breast cancer arrives with complaints of hip pain. Per her oncologist Dr Douglass, she is receiving radiation to the site of pain. She has radiation scheduled today at 1200. Patient is and her 28 year old daughter also lives at home. She wonders if she might need more help at home with things like getting out of bed. I explained how private duty caregivers work and offered her a list of agencies if she is interested. She also might benefit from skilled services, as well. She will let us know if she wants us to make any referrals or give her a list of private duty agencies. Date Signed: 08/28/2017 11:47 AM Electronically Signed By:Rissa Martinez RN [facility] CM Progress Note CM Note CM Note Notes: Pt to DC today. Met with pt to go over any DC needs. Pt would welcome a palliative care referral to [facility] for symptom management. She does not think she needs HC at this time. She was given a loan closet list. Submitted her name for [facility]. Final orders faxed to [facility]. Date Signed: 08/31/2017 02:44 PM Electronically Signed By:Lolly Gil LCSW Intervention Information
[2017-08-31] MEDS ORDERED: SENNOSIDES/DOCUSATE SODIUM TAB PO SCH (21:00)
== END 2017-08-31 14:46 | disposition home or self-care (01) | DRG 948 ==
LOC: EDUNIT# → F1N 13:38 → OBSVTOIN 08-29 09:52
PROVIDERS: ADMIT Family Medicine; ATTEND Student in an Organized Health Care Education/Training Program
DX: G89.3 Neoplasm related pain (acute) (chronic) (principal); C79.51 Secondary malignant neoplasm of bone; C50.911 Malignant neoplasm of unspecified site of right female breast; D64.81 Anemia due to antineoplastic chemotherapy; D70.1 Agranulocytosis secondary to cancer chemotherapy; T45.1X5A Adverse effect of antineoplastic and immunosuppressive drugs, initial encounter; Z66 Do not resuscitate; Z90.11 Acquired absence of right breast and nipple
CPT/HCPCS: 96374; 97116-GP; 97162-GP; 97165-GO; G0378; J1100; J1170; J1200; J1642; J1650; J1885; J2405

== ENCOUNTER 2017-10-04 14:46 | Inpatient (IN) | payer OTHER ==
[2017-10-04] MEDS ORDERED: ONDANSETRON 4 MG/2 ML VIAL IVP ONE (15:37)
[2017-10-04] MEDS ORDERED: NS 1,000 ML IV ONE (15:38)
[2017-10-04 15:42] LABS: PLATELET COUNT 156 10^3/uL (150-400)
[2017-10-04] MEDS ORDERED: HYDROmorphONE/DILAUDID 2 MG/ML INJ IVP ONE (16:11)
--- NOTE | 2017-10-04 16:18 | EDPHY ---
H & P Time Seen by Provider: 10/04/17 15:56 HPI/ROS: HPI Fatigue, fever, lightheaded. 62-year-old female by private vehicle with significant other. Patient has a history of metastatic breast cancer. She is [facility] by Dr. Terrazas. She started a new chemotherapeutic agent 4 weeks ago. She had her 4th dose of this drug on . She reports that on she started feeling fatigued, this was followed by feeling lightheaded and feverish today. She reports a temperature of 101.3 degrees at home. She has had some increased frequency with urination. No dysuria. She otherwise denies any other associated signs or symptoms. ROS: Constitutional: As above. Eyes: No discharge. No changes in vision. ENT: No sore throat. No nasal congestion or rhinorrhea. Respiratory: No cough. No shortness of breath. Cardiac: No chest pain, no palpitations. Gastrointestinal: No abdominal pain, no vomiting, no diarrhea. Genitourinary: No hematuria. As above. Musculoskeletal: No back pain. No neck pain. No myalgias or arthralgias. Skin: No rashes. Neurological: No headache. No focal weakness or altered sensation. As above. Past medical history: Breast cancer, Mets to liver bone brain, mastectomy, right upper chest wall Port-A-Cath. As above. Social history: Here with significant other. No smoking. No alcohol. She ambulates with a walker. Physical Exam: General Appearance: Alert, pleasant 62-year-old female, no distress. She appears relaxed. This patient is responding to questions appropriately and in full sentences. This patient appears well-hydrated and well-nourished. Eyes: Pupils equal and round no pallor or injection. No lid edema, erythema or injection. ENT, Mouth: Mucous membranes are moist. The pharyngeal tissues are unremarkable. No edema or swelling. No asymmetry suggestive of abscess. No erythema or exudates. Respiratory: There are no retractions, lungs are clear to auscultation anteriorly with good air movement bilaterally. Cardiovascular: Regular rate and rhythm. No murmur. Left upper chest wall Port-A-Cath, insertion site clean dry and intact. Gastrointestinal: Abdomen is soft and nontender, no masses, bowel sounds normal. No focal tenderness at McBurney's point. No Hull sign. Neurological: Motor sensory function is grossly intact. Cranial nerves are normal. Skin: Warm and dry, no rashes. Musculoskeletal: Neck is supple and nontender. No cervical, submandibular, submental lymphadenopathy. Extremities are symmetrical. All joints range without pain or impingement. Psychiatric: No agitation. No depression. Database: EKG: EKG time is 4:19 p.m.; EKG shows a narrow complex normal sinus rhythm with a ventricular rate of 81. The MN, QRS, QT intervals are within normal limits. There are no ST-T wave changes indicative of ischemic or injury pattern. No evidence of right heart strain. Interpreted by me. Imaging: Chest x-ray PA and lateral; the cardiac mediastinal silhouette is unremarkable. Right upper lobe and left lower lobe infiltrates which have developed since 04/2017. No other acute cardiopulmonary disease process noted. Interpreted by me. Procedures: Emergency department course: IV placed. She was placed on a electrical system specialist. Vital signs reviewed. Blood pressure 85/58, temperature 37.6 degrees, heart rate in the 80s. She was started on IV normal saline with 500 cc to 1 L to be given over the next hour. She has chronic pain in her legs and is asking for some pain medication. She was given 0.25 mg of IV hydromorphone. 5:35 p.m., patient re-evaluated. Resting comfortably. Still waiting for results of urinalysis but urine has been sent. Discussed findings on chest x- ray. Unclear whether these are acute. However, given the patient's fever we will treat for pneumonia. Blood cultures have been drawn. She is not neutropenic. Her white blood cell count is within normal limits. We will start her on IV Rocephin and azithromycin in the emergency department. Plan for admission discussed with her. All of her questions were answered. She endorses admission. 5:40 p.m., spoke with on-call hospitalist Dr. Shelton. Case discussed in detail with her. She accepts the patient for admission. The patient's remaining emergency department course under my care has been uneventful. She was admitted in stable condition. Differential Diagnosis: The differential diagnosis on this patient includes but is not limited to anemia. This represents a partial list of diagnoses considered. These considerations are based on history, physical exam, past history, reassessment and diagnostic testing. Smoking Status: Never smoked Constitutional: Initial Vital Signs Temperature (C) 37.8 C 10/04/17 14:53 Heart Rate 104 H 10/04/17 14:53 Respiratory Rate 16 10/04/17 14:53 Blood Pressure 89/65 L 10/04/17 14:53 O2 Sat (%) 90 L 10/04/17 14:53 O2 Delivery Mode Nasal Cannula O2 (L/minute) 2 Allergies/Adverse Reactions: corn Allergy (Verified 10/04/17 14:51) Home Medications: Medication Instructions Recorded Venlafaxine Xr [Effexor Xr 75MG 150 mg PO DAILY 07/29/17 (*)] morphINE SR [Ms Contin/Oramorph 15 15 mg PO QID 07/29/17 mg (*)] Cholecalciferol Vit D3 [Vitamin D3 10,000 units PO DAILY 08/27/17 2000 units tab (OTC)] Herbals/Supplements -Info Only 1 ea PO DAILY 08/27/17 Polyethylene Glycol 3350 [Miralax 17 gm PO DAILY PRN 08/27/17 17 gm (*)] Sennosides/Docusate Sodium 1 each PO BID PRN 08/27/17 [Senna-S Tablet] Diazepam [Valium 5 MG (*)] 5 - 10 mg PO Q6HRS PRN #30 tab 08/31/17 Gabapentin [Neurontin 300 MG (*)] 300 mg PO TID #90 cap 08/31/17 HYDROmorphone HCL [Dilaudid 2 mg 2 - 4 mg PO Q4HRS PRN #60 tab 08/31/17 (*)] Ondansetron Odt [Zofran Odt 4 mg 4 mg PO Q4HRS PRN #30 tab 08/31/17 (*)] Pantoprazole Sodium [Protonix 40mg 40 mg PO DAILY #30 tab 08/31/17 (*)] Medical Decision Making - Diagnostics Imaging Results: Imaging Impressions Chest X-Ray 10/04/17 16:12 Impression: Right upper lobe and left lower lobe infiltrates which have developed since 10/01/2016. Clinical correlation and follow-up to assure resolution are recommended. - Data Points Laboratory Results: Laboratory Results 10/04/17 15:30 10/04/17 15:30 10/04/17 10/04/17 10/04/17 16:45 15:30 15:30 WBC RBC Hgb Hct MCV MCH MCHC RDW Plt Count MPV Neut % (Auto) Lymph % (Auto) Erath % (Auto) Eos % (Auto) Baso % (Auto) Nucleat RBC Rel Count Absolute Neuts (auto) Absolute Lymphs (auto) Absolute Monos (auto) Absolute Eos (auto) Absolute Basos (auto) Absolute Nucleated RBC Immature Gran % Immature Gran # ABG Lactic Acid 0.8 mmol/L mmol/L (0.5-1.6) Sodium 140 mEq/L mEq/L (135-145) Potassium 3.8 mEq/L mEq/L (3.5-5.2) Chloride 104 mEq/L mEq/L (97-110) Carbon Dioxide 26 mEq/l mEq/l (22-31) Anion Gap 10 mEq/L mEq/L (8-16) BUN 16 mg/dL mg/dL (7-23) Creatinine 0.6 mg/dL mg/dL (0.6-1.0) Estimated GFR > 60 Glucose 118 mg/dL H mg/dL (70-100) Calcium 7.6 mg/dL L D mg/dL (8.5-10.4) Total Bilirubin 1.1 mg/dL mg/dL (0.1-1.4) AST 57 IU/L H IU/L (14-46) ALT 41 IU/L IU/L (9-52) Alkaline Phosphatase 105 IU/L IU/L (38-126) Total Protein 6.5 g/dL g/dL (6.3-8.2) Albumin 3.3 g/dL L g/dL (3.5-5.0) Patient ABO/Rh B POSITIVE Antibody Screen NEGATIVE 10/04/17 15:30 WBC 4.60 10^3/uL 10^3/uL (3.80-9.50) RBC 3.06 10^6/uL L 10^6/uL (4.18-5.33) Hgb 8.4 g/dL L g/dL (12.6-16.3) Hct 25.8 % L % (38.0-47.0) MCV 84.3 fL fL (81.5-99.8) MCH 27.5 pg L pg (27.9-34.1) MCHC 32.6 g/dL g/dL (32.4-36.7) RDW 18.6 % H % (11.5-15.2) Plt Count 156 10^3/uL 10^3/uL (150-400) MPV 9.9 fL fL (8.7-11.7) Neut % (Auto) 86.6 % H % (39.3-74.2) Lymph % (Auto) 4.8 % L % (15.0-45.0) Erath % (Auto) 8.0 % % (4.5-13.0) Eos % (Auto) 0.0 % L % (0.6-7.6) Baso % (Auto) 0.2 % L % (0.3-1.7) Nucleat RBC Rel Count 0.4 % H % (0.0-0.2) Absolute Neuts (auto) 3.98 10^3/uL 10^3/uL (1.70-6.50) Absolute Lymphs (auto) 0.22 10^3/uL L 10^3/uL (1.00-3.00) Absolute Monos (auto) 0.37 10^3/uL 10^3/uL (0.30-0.80) Absolute Eos (auto) 0.00 10^3/uL L 10^3/uL (0.03-0.40) Absolute Basos (auto) 0.01 10^3/uL L 10^3/uL (0.02-0.10) Absolute Nucleated RBC 0.02 10^3/uL H 10^3/uL (0-0.01) Immature Gran % 0.4 % % (0.0-1.1) Immature Gran # 0.02 10^3/uL 10^3/uL (0.00-0.10) ABG Lactic Acid Sodium Potassium Chloride Carbon Dioxide Anion Gap BUN Creatinine Estimated GFR Glucose Calcium Total Bilirubin AST ALT Alkaline Phosphatase Total Protein Albumin Patient ABO/Rh Antibody Screen Medications Given: Discontinued Medications Hydromorphone HCl (Dilaudid) 0.25 mg IVP EDNOW ONE Stop: 10/04/17 16:12 Last Admin: 10/04/17 16:23 Dose: 0.25 mg Sodium Chloride (Ns) 1,000 mls @ 0 mls/hr IV ONCE ONE PRN Reason: Wide Open Stop: 10/04/17 15:39 Last Admin: 10/04/17 15:48 Dose: 1,000 mls Ondansetron HCl (Zofran) 4 mg IVP EDNOW ONE Stop: 10/04/17 15:38 Last Admin: 10/04/17 15:49 Dose: 4 mg Departure - Departure Disposition: [facility] Inpatient Acute Clinical Impression: Anemia, Chemotherapy adverse reaction, Fever, Metastatic breast cancer, Pneumonia Referrals: Madelyn Randolph MD [Primary Care Provider] - As per Instructions
--- NOTE | 2017-10-04 16:22 | CPEKG ---
Heart Rate: 81 RR Interval: 741 P-R Interval: 152 QRSD Interval: 88 QT Interval: 400 QTC Interval: 465 P Marion: 48 QRS Marion: 23 T Wave Marion: 4 EKG Severity - ABNORMAL ECG - EKG Impression: SINUS RHYTHM EKG Impression: NONSPECIFIC T ABNORMALITIES, ANTERIOR LEADS Electronically Signed By: José Antonio Mejia 04-Oct-2017 22:44:19
[2017-10-04] MEDS ORDERED: AZITHROMYCIN IV 500 MG in D5W 250 ML IV ONE (17:42)
--- NOTE | 2017-10-04 18:18 | ASMTCMCOM ---
CM Note CM Note Notes: Pt presented to the Emergency Department today with fatigue, feeling feverish and lightheaded. Pt has a history of mestastatic breast cancer (with mets to the bone, liver and brain), s/p mastectomy. The pt just started a new chemo four weeks ago. The pt is accompanied by her partner. She will be admitted for further eval and treatment. Discharge needs remain unclear at this time. CM will continue to follow. Current Discharge Plan: To be determined Date Signed: 10/04/2017 06:17 PM Electronically Signed By:Jeniffer Murcia RN
--- NOTE | 2017-10-04 20:27 | PDGENHP ---
History and Physical History and Physical: Chief complaint: lethargy History of present illness: Pt is a 62yo F w/ PMH metastatic breast cancer who came to the ED because she was too lethargic and generally weak to get out of bed this AM. She c/o being increasingly drowsy and confused often in the last few days. Here, she was found to have a fever. She vomited today. Denies feeling nauseous. She denies shortness of breath or cough. Admits to a pain in chest a couple times when lying down, which she had attributed to stress from moving homes. Denies orthopnea. She has had a couple of sick contacts - both her adult children have recently gotten over upper respiratory infections. Patient was started on chemotherapy called Eribulin about 2 months ago, took a break for 10 sessions of radiation to the thorax, then resumed Eribulin 4 weeks ago. She has pain in left hip, which is chronic, and cramps in bilateral legs. Past medical history: metastatic breast cancer. Past surgical history: R mastectomy, C section. Medications: please see med rec form. Although pt was prescribed MS Contin 30mg 2 tabs po BID, she has been taking 15mg po BID. She feels the Dilaudid prn breakthrough pain helps more for her pain. Allergies: oxycodone, corn. Social history: . Lives w/ spouse and daughter. No EtOH, tobacco, rec drugs. Family history: ovarian cancer, HTN. Review of systems: 10 point review of systems was conducted and is negative except per HPI. PCP - none. Oncologist - Dr. Terrazas. Physical exam: Vitals: Reviewed General: The patient is a female who is lethargic and in no acute distress. HEENT: normocephalic, extraocular movements intact, conjunctivae clear, no lesions on face. Mucous membranes dry. Neck: trachea midline, no visible masses, no external lesions. CV: +S1/S2, RRR, no MRG. Resp: unlabored, CTAB no RRW. Abd: soft and nondistended. Nontender. Musculoskeletal: Normal muscle tone and bulk. Neuro: cranial nerves II XII grossly intact. Intact gross motor and sensory function. Psych: appropriate mood/affect. Skin: +mild pallor. Heme/lymph: No peripheral edema. Labs: WBC 4.6 hemoglobin 8.4 platelets 156. Lactic acid 0.8. Sodium 140 potassium 3 point any BUN 16 creatinine 0.6 glucose 118. Albumin 3.3. Other Data: CXR: Bilateral interstitial infiltrates. Impression and plan: Acute community acquired pneumonia Immunocompromised status, 2/2 chemotherapy/radiation Fever Dehydration, mild -Antibiotics. -SVNs. -Received 1L IV NS today in ED, still running currently. Metastatic breast cancer w/ metastasis to bone Anemia -Oncology consultation recommended in AM. Generalized weakness, 2/2 above Chronic pain, on opiates Somnolence, 2/2 opiate AE -Recommended that pt take less Dilaudid, as this likely contributing to her symptoms. Hypocalcemia, mild (corrected for hypoalbuminemia) Muscle cramps -recheck calcium in AM. -encourage po intake. Code status - DNR. VTE ppx - Lovenox. Observation status.
[2017-10-04] MEDS ORDERED: PROMETHAZINE HCL 25 MG/ML INJ IVP PRN (20:41)
[2017-10-04] MEDS ORDERED: ONDANSETRON 4 MG/2 ML VIAL IVP PRN (20:41)
[2017-10-04] MEDS ORDERED: ONDANSETRON DISINTEGRATING 4 MG TAB PO PRN (20:41)
[2017-10-04] MEDS ORDERED: PANTOPRAZOLE SODIUM 40 MG TAB PO PRN (20:50)
[2017-10-04] MEDS ORDERED: POLYETHYLENE GLYCOL 3350 17 GM PKT PO PRN (20:50)
[2017-10-04] MEDS ORDERED: SENNOSIDES 1 TAB PO PRN (20:50)
[2017-10-04] MEDS ORDERED: HYDROmorphONE/DILAUDID 2 MG TAB PO PRN (20:50)
[2017-10-04] MEDS ORDERED: morphINE SR 15 MG TAB PO SCH (21:00)
[2017-10-04] MEDS: IPRATROPIUM/ALBUTEROL 3 ML DEYVIAL IH SCH (22:04)
[2017-10-04] MEDS: NS 1,000 ML IV SCH ×2 (22:45→22:51)
[2017-10-04] MEDS: GABAPENTIN 300 MG CAP PO SCH (22:45)
[2017-10-04] MEDS: morphINE SR 15 MG TAB PO SCH (22:45)
[2017-10-05] MEDS: IPRATROPIUM/ALBUTEROL 3 ML DEYVIAL IH SCH ×4 (05:10→20:11)
[2017-10-05] MEDS: NS 1,000 ML IV SCH (05:21)
[2017-10-05 05:33] LABS: PLATELET COUNT 133 10^3/uL (150-400)
[2017-10-05] MEDS: AZITHROMYCIN IV 500 MG in NS 250 ML IV SCH (08:51)
[2017-10-05] MEDS ORDERED: NS 500 ML IV ONE (08:57)
[2017-10-05] MEDS ORDERED: CALCIUM GLUCONATE 50 ML IV ONE (09:06)
[2017-10-05] MEDS ORDERED: CALCIUM GLUCONATE 1 GM in D5W 50 ML IV ONE (09:30)
--- NOTE | 2017-10-05 09:40 | CPEKG ---
Heart Rate: 85 RR Interval: 706 P-R Interval: 152 QRSD Interval: 88 QT Interval: 396 QTC Interval: 471 P Hext: 36 QRS Hext: 28 T Wave Hext: -17 EKG Severity - ABNORMAL ECG - EKG Impression: SINUS RHYTHM EKG Impression: NONSPECIFIC T ABNORMALITIES, DIFFUSE LEADS Electronically Signed By: Barbie Adam 05-Oct-2017 13:36:18
[2017-10-05] MEDS: VENLAFAXINE XR 75 MG CAP PO SCH (10:10)
[2017-10-05] MEDS: morphINE SR 15 MG TAB PO SCH ×2 (10:11→21:38)
[2017-10-05] MEDS: GABAPENTIN 300 MG CAP PO SCH ×3 (10:11→21:38)
[2017-10-05] MEDS: CHOLECALCIFEROL VIT D3 1,000 UNITS TAB PO SCH (10:11)
[2017-10-05] MEDS: ENOXAPARIN 40 MG/0.4 ML SYR SC SCH (11:02)
--- NOTE | 2017-10-05 11:59 | HOSPPROG ---
Hospitalist Progress Note Assessment/Plan: #Sepsis: Leukopenia, Hypotension, pneumonia, hypoxemia, elevated troponin -Given IVF bolus and cont NS at 100 -will determine response to IVF -Await blood cultures -Questions Adrenal insufficiency as she has been receiving steroids intermittently. Will provide Stress dose now. #Community acquired bilateral pneumonia -CXR c/w RUL, LLL infiltrates -Cont with Rocephin and Azithromycin for now, consider broadening if worsens #Acuter Resp Failure -Schedule nebs -abx per above -steroids per above #Elevated troponin with no active chest pain -likely due to strain -she has been having chest pain intermittently x 2 weeks, non exertional -will get stat EKG, Echo -repeat Troponin stat #Immunocompromised state #Dehydration #Encephalopathy, resolved #Chronic pain syndrome with some sedation due to over medication -decreased MS contin from 30mg BID to 15 mg BID -she is altered at this time #Metastatic breast cancer w/ metastasis to bone #Anemia -Oncology consultation recommended in AM. #Generalized weakness, 2/2 above #Hypocalcemia: Give IV Calcium now #Muscle cramps Code status - DNR. VTE ppx - Lovenox. Dispo: change to inpatient total critical care time is 40 minutes Subjective: Hypotensive, no chest pain. afebrile. minimal urine output. no cough , no sob Objective: Vital Signs Temp Pulse Resp BP Pulse Ox 36.9 C 92 15 93/60 L 95 10/05/17 09:29 10/05/17 11:25 10/05/17 11:25 10/05/17 11:25 10/05/17 11:25 Laboratory Results 10/05/17 05:20 10/05/17 05:20 10/04/17 10/05/17 10/06/17 05:59 05:59 05:59 Intake Total 1038 Output Total 1000 Balance 1038 -1000 - Physical Exam Constitutional: no apparent distress Eyes: PERRL Ears, Nose, Mouth, Throat: moist mucous membranes, dry mucous membranes Cardiovascular: regular rate and rhythym, No edema Respiratory: no respiratory distress, no rales or rhonchi, reduced air movement Gastrointestinal: normoactive bowel sounds, soft, non-tender abdomen Skin: warm Musculoskeletal: generalized weakness Neurologic: AAOx3 Psychiatric: interacting appropriately, not anxious, not encephalopathic, thought process linear Lymph, Heme, Immunologic: No petechiae ICD10 Worksheet Patient Problems: Problems Problem Status Onset Anemia Acute Chemotherapy adverse reaction Acute Fever Acute Metastatic breast cancer Acute Pneumonia Acute Hip pain Acute
--- NOTE | 2017-10-05 12:51 | ECHO ---
[email or web address] [address] [address] Main: [phone] Fax: Transthoracic Echocardiogram Name: JOÃO AQUINO MR#: [id number] Study Date: 10/05/2017 Study Time: 11:27 AM Date of : 1955 Age: 62 year(s) Height: 157.5 cm (62 in.) Weight: 68.04 kg (150 lb.) BSA: 1.69 m2 Gender: Female Examination: Echo Indication: Elevated troponin, Breast CA Image Quality: Contrast: Requested by: Radhames Villela BP: 93 mmHg/60 mmHg Heart Rate: Rhythm: Indication: Elevated troponin, Breast CA Procedure Staff [employer] Physician: Lian Reilly RDCS Reading Physician: Shahzad Gan MD Requesting Provider: Conclusions: Normal size left ventricle. No LV hypertrophy. The ejection fraction is estimated to be 70-75 %. No regional wall motion abnormality. Normal size right ventricle. The left atrium is normal in size. The right atrium is mildly dilated. The mitral valve is normal in appearance and function. Mild mitral valve regurgitation is present. The aortic valve is normal in appearance and function. The tricuspid valve is normal in appearance and function. Mild to moderate tricuspid valve regurgitation. The pulmonary artery pressure is normal. The pulmonic valve is normal in appearance and function. Trivial pulmonic valve regurgitation. The aorta is normal. No pericardial effusion. Measurements: Chambers Valvular Assessment AV/MV Valvular Assessment TV/PV Normal Normal Normal Name Value Range Name Value Range Name Value Range IVSd (2D): 0.9 cm (0.6 cm-1.1 AV meanP mmHg ( - ) TR Vmax: 2.67 mm/s ( - ) cm) MV E Vmax: 0.73 m/s ( - ) TR PGmax: 29 mmHg ( - ) LVDd (2D): 4.3 cm (3.9 cm-5.3 MV A Vmax: 0.59 m/s ( - ) syst. PAP: 34 mmHg ( - ) cm) MV E/A: 1.24 ( - ) LVDs (2D): 2.8 cm (2.1 cm-4 cm) LVPWd (2D): 0.7 cm ( - ) Patient: JOÃO AQUINO Study Date: 10/05/2017 Page 1 of 2 11:27 AM EF Range: 70-75 % Continued Measurements: Chambers Valvular Assessment AV/MV Valvular Assessment TV/PV Name Value Name Value Name Value LADs: 4.0 cm MV E' Septal: 0.09 m/s CVP (est.): 5 mmHg LADs Lon.3 cm MV E/E' Septal: 8.10 LA Area: 17.5 cm2 MV E/E' Lateral: 6.60 Additional Vessels Name Value Ao Ascendin.2 cm Findings: Left Ventricle: Normal size left ventricle. No LV hypertrophy. Global hypercontractility of the left ventricle. The ejection fraction is estimated to be 70-75 %. No regional wall motion abnormality. Right Ventricle: Normal size right ventricle. Left Atrium: The left atrium is normal in size. Right Atrium: The right atrium is mildly dilated. Mitral Valve: The mitral valve is normal in appearance and function. Mild mitral valve regurgitation is present. Aortic Valve: The aortic valve is normal in appearance and function. Tricuspid Valve: The tricuspid valve is normal in appearance and function. Mild to moderate tricuspid valve regurgitation. The pulmonary artery pressure is normal. Pulmonic Valve: The pulmonic valve is normal in appearance and function. Trivial pulmonic valve regurgitation. Aorta: The aorta is normal. Pericardium: No pericardial effusion. (No Signature Object) Patient: JOÃO AQUINO Study Date: 10/05/2017 Page 2 of 2 11:27 AM [id number]
--- NOTE | 2017-10-05 13:05 | GCON ---
[f rep st] CONSULTATION MEDICAL ONCOLOGY CONSULTATION NOTE REASON FOR CONSULTATION: Patient with metastatic breast cancer, increasing weakness and fever. HISTORY OF PRESENT ILLNESS: The patient is a very pleasant 62-year-old female with a several-year history of metastatic breast cancer, who is admitted with symptoms of fever, increasing fatigue, and slower mentation. 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 She underwent modified radical mastectomy with axillary node dissection, followed by chemotherapy with doxorubicin, Cytoxan, and Taxol. She received a PMRT as well. She has since developed metastatic disease involving multiple bony sites. She has had several prior therapies including fulvestrant with Ibrance, weekly Taxol with placebo or alisertib on a clinical trial, Xeloda, and more recently started on weekly eribulin in July of 2017. She has had painful bony metastases involving the T3-4, L2, and S2. She just finished a course of palliative radiation therapy to those areas, as well as the left hip. Edelmira called the office yesterday and appeared somewhat foggy. She stated she had a temperature of 101.3. She had no cough. She has been feeling chilled. Both she and her daughter felt that she was slightly confused. She presented to the emergency room, with chest x-ray demonstrating a right upper lobe and left lower lobe infiltrate. She was cultured and started on azithromycin and ceftriaxone. Today she feels mentally clearer. She still is extremely fatigued and has been feeling chilled. PAST MEDICAL HISTORY: Metastatic breast cancer. PAST SURGICAL HISTORY: Right mastectomy with axillary node dissection, C- section. FAMILY HISTORY: Notable for ovarian cancer in a paternal grandmother. SOCIAL HISTORY: She is . She lives locally. She is a nonsmoker. She and her own a RECCY. REVIEW OF SYSTEMS: A 10-point review of systems is negative other than HPI. PHYSICAL EXAM: GENERAL: She is lying in bed, appearing comfortable and alert. VITAL SIGNS: Blood pressure 93/60, heart rate 92, O2 sat 95% on 3 L. HEENT: Pupils are equal. Sclerae anicteric. Oropharynx is clear. LUNGS: Decreased breath sounds bilaterally. No wheezing. ABDOMEN: Soft, nontender. EXTREMITIES: No edema. LABORATORY DATA: White blood cell count 3.2, hematocrit 21.5, platelet count 133, absolute neutrophil count 2.7. Comprehensive metabolic panel with creatinine of 0.5. IMPRESSION: This is a 62-year-old female with metastatic breast cancer involving multiple bony sites, admitted with slightly altered mental status, fever and chills and chest x-ray consistent with bilateral pneumonia. The patient has been pancultured and started on broad-spectrum antibiotics. Clinically, she feels improved this morning. Her mentation is improved compared to my conversation with her yesterday. Of note, she is significantly anemic, more so than what she has been in the past. There are no signs of obvious bleeding. A recent ferritin was 240. We will check B12 as well as an LDH. For now, eribulin will be held. We will continue to follow along with you. /[id number]/MODL MTDD
--- NOTE | 2017-10-05 13:07 | PDMN ---
Medical Necessity Medical necessity: C/M review: Patient meets INPT criteria under MCG M-282 Pneumonia, community acquired: Acute and persistent - sepsis, WBC4.60, 3.19, procalcitonin 0.42, community acquired bilateral pneumonia on CXR, respiratory failure, elevated troponin 1.320, dehydration, hypotension 10/05/2017 AM BP - 75/ 48, 85/45, encephalopathy (resolved), hypocalcemia, Ca 7., 6.7, blood cultures pending, anemia Hgb 8.4, 7.0, Hct 25.8, 21.5, generalized weakness, muscle cramps, requiring IV NS bolus, IV Calcium gluconate x 1, planned Oncology consult, ongoing IV Azithramycin QD, IV Ceftriaxone QD, IV Solucortef Q 8 hrs. , IV NS 100 ml/hr. infusion, Duonebs QID, cardiac monitoring, pulse oximetry, supplemental O2, comorbid immunocompromised state, chronic pain syndrome with some sedation due to overmedication and metastatic breast cancer with metastasis to bone. MD anticipates > 2 MN LOS for ongoing med nec for eval and TX of above.
[2017-10-05] MEDS: HYDROCORTISONE 100 MG/2 ML VIAL IVP SCH ×2 (14:09→21:38)
--- NOTE | 2017-10-05 15:03 | ASMTCMCOM ---
CM Note CM Note Notes: Pt admitted for bilateral pna. She is currently in treat for met. breast ca. Pt is current with [facility]. Alerted them to her admission. At this time, she has no other DC needs. Date Signed: 10/05/2017 03:02 PM Electronically Signed By:Lolly Gil LCSW
[2017-10-06] MEDS: NS 1,000 ML IV SCH (03:37)
[2017-10-06] MEDS: HYDROCORTISONE 100 MG/2 ML VIAL IVP SCH ×3 (05:25→22:17)
[2017-10-06 05:55] LABS: PLATELET COUNT 138 10^3/uL (150-400)
[2017-10-06] MEDS: IPRATROPIUM/ALBUTEROL 3 ML DEYVIAL IH SCH ×3 (06:07→14:58)
[2017-10-06] MEDS ORDERED: PROTOCOL POTASSIUM 1 DOSE MISC PRN (08:20)
--- NOTE | 2017-10-06 08:21 | HOSPPROG ---
Hospitalist Progress Note Assessment/Plan: #Acute hypoxic resp failure: due to CAP. TR on echo #CAP: Azithro/CTX #Indeterminate troponin: echo with no WMA. Suspect due to acute illness. No chest pain. Can consider stress outpatient #Hypotension: due to acute illness, dehydration. Normal EF. Titrate on IV steroids #Metabolic encephalopathy: resolved. Due to infection #Weakness: anemia and infection. #Hypokalemia: replete #Anemia: transfuse 1 unit RBC today #Metastatic breast cancer: Eribulin, XRT to spine metastases #Moderate protein caloric malnutrition: encourage PO intake #Diet: regular #DVT ppx: SCDs #Disp: cont inpatient admission for IVF abx # Subjective: no chest pain. Coughs after breathing treatment Objective: Vital Signs Temp Pulse Resp BP Pulse Ox 36.6 C 70 18 99/65 L 100 10/06/17 04:00 10/06/17 06:08 10/06/17 06:08 10/06/17 04:00 10/06/17 04:00 Laboratory Results 10/06/17 05:30 10/06/17 05:30 10/05/17 10/06/17 10/07/17 05:59 05:59 05:59 Intake Total 1038 3792 Output Total 5000 Balance 1038 -1208 - Physical Exam Constitutional: other (fatigued) Eyes: PERRL Ears, Nose, Mouth, Throat: moist mucous membranes Cardiovascular: regular rate and rhythym, edema (trace edema to matthews) Respiratory: no respiratory distress (crackles left base) Gastrointestinal: normoactive bowel sounds Genitourinary: no bladder fullness Skin: warm Musculoskeletal: full muscle strength Neurologic: AAOx3, CN II-XII Intact ICD10 Worksheet Patient Problems: Problems Problem Status Onset Anemia Acute Chemotherapy adverse reaction Acute Fever Acute Metastatic breast cancer Acute Pneumonia Acute Hip pain Acute
[2017-10-06] MEDS ORDERED: POTASSIUM CL 10 MEQ TAB PO ONE (08:31)
[2017-10-06] MEDS: GABAPENTIN 300 MG CAP PO SCH ×3 (09:51→21:50)
[2017-10-06] MEDS: morphINE SR 15 MG TAB PO SCH ×2 (09:52→21:48)
[2017-10-06] MEDS: CHOLECALCIFEROL VIT D3 1,000 UNITS TAB PO SCH (09:52)
[2017-10-06] MEDS: VENLAFAXINE XR 75 MG CAP PO SCH (09:52)
[2017-10-06] MEDS: AZITHROMYCIN IV 500 MG in NS 250 ML IV SCH (09:53)
[2017-10-06] MEDS: ENOXAPARIN 40 MG/0.4 ML SYR SC SCH (09:54)
--- NOTE | 2017-10-06 11:09 | SOAPPROG ---
SOAP Progress Note Assessment/Plan: Assessment/Plan: 62 yo woman w stage IV (ER+) breast cancer admitted w AMS, fever, and fatigue, discovered to have bilateral PNA 1. PNA - abx for CAP on NC and sating well 2. Fatigue - likely related to #1 and anemia 3. Anemia - normocytic imagine due to previous chemo and XRT and anemia of chronic disease check iron studies today will give 1 unit of PRBCs today may need EPO as outpt 4. AMS - improved 5. Breast ca - stage IV; on Eribulin most recently too early to assess response palliative XRT to spinal cathleen mets 10/06/17 11:06 Subjective: No acute events feeling very fatigued today Objective: Vital Signs Temp Pulse Resp BP Pulse Ox 36.5 C 84 16 114/64 98 10/06/17 08:00 10/06/17 09:59 10/06/17 09:59 10/06/17 08:00 10/06/17 09:59 Laboratory Results 10/06/17 05:30 10/06/17 05:30 10/05/17 10/06/17 10/07/17 05:59 05:59 05:59 Intake Total 1038 3792 Output Total 0143 700 Balance 1964 -1628 -930 Gen - very fatigued appearing HEENT - anicteric CV - systolic murmur best heard at LUSB Chest - clear anteriorly Abd - soft, NT, BS+ Ext- no sig edema ICD10 Worksheet Patient Problems: Problems Problem Status Onset Anemia Acute Chemotherapy adverse reaction Acute Fever Acute Metastatic breast cancer Acute Pneumonia Acute Hip pain Acute
[2017-10-06] MEDS ORDERED: ACETAMINOPHEN 500 MG TAB PO ONE (11:45)
[2017-10-06] MEDS ORDERED: diphenhydrAMINE 25 MG CAP PO ONE (11:45)
--- NOTE | 2017-10-06 13:33 | ASMTCMCOM ---
CM Note CM Note Notes: Met with patient to verify her PCP. She states she can follow up with Dr. Moreno in [place]. She also inquired about "[employer]" fund to help with her upcoming cost as she is moving. She stated that Eveline Hoang nurse navigator was buy to see her and will be back. Per therapy no needs identified at this time. CM available should needs arise. Date Signed: 10/06/2017 01:33 PM Electronically Signed By:Vashti Dent RN
[2017-10-06] MEDS ORDERED: IPRATROPIUM/ALBUTEROL 3 ML DEYVIAL IH PRN (16:30)
[2017-10-06] MEDS ORDERED: POTASSIUM CL 20 MEQ TAB PO ONE (21:37)
[2017-10-07 05:27] LABS: PLATELET COUNT 154 10^3/uL (150-400)
--- NOTE | 2017-10-07 09:13 | HOSPPROG ---
Hospitalist Progress Note Assessment/Plan: #Acute hypoxic resp failure: due to CAP. TR on echo. #CAP: Resolved. Day 4/5 abx #Indeterminate troponin: echo with no WMA. Suspect due to acute illness. No chest pain. Can consider stress outpatient #Hypotension: resolved with IVFs, steroids. Titrate off steroids. Normal EF on echo. #Metabolic encephalopathy: resolved. Due to infection #Weakness: anemia and infection. Encourage to sit in chair #Hypokalemia: replete #Anemia: s/p 1 unit RBC 10/06 #Metastatic breast cancer: Eribulin, XRT to spine metastases #Chronic pain: MS Contin, Gabapentin. Bowel regimen #Moderate protein caloric malnutrition: encourage PO intake #Deconditioning: PT/OT #Diet: regular #DVT ppx: SCDs #Disp: cont inpatient admission for IVF abx # Subjective: less cough. Has been walking the unit Objective: Vital Signs Temp Pulse Resp BP Pulse Ox 36.8 C 80 16 145/92 H 98 10/07/17 08:00 10/07/17 08:00 10/07/17 08:00 10/07/17 08:00 10/07/17 08:00 Laboratory Results 10/07/17 05:15 10/07/17 05:15 10/06/17 10/07/17 10/08/17 05:59 05:59 05:59 Intake Total 3792 1890 Output Total 5000 1500 Balance -1208 390 - Physical Exam Constitutional: other (somnolent, but appropriate with questioning) Eyes: PERRL Ears, Nose, Mouth, Throat: moist mucous membranes Cardiovascular: regular rate and rhythym Respiratory: other (few LLL base crackles) Gastrointestinal: normoactive bowel sounds Genitourinary: No taveras in urethra Skin: warm Musculoskeletal: full muscle strength Neurologic: AAOx3, CN II-XII Intact Psychiatric: interacting appropriately ICD10 Worksheet Patient Problems: Problems Problem Status Onset Hip pain Acute Anemia Acute Chemotherapy adverse reaction Acute Fever Acute Metastatic breast cancer Acute Pneumonia Acute
[2017-10-07] MEDS: morphINE SR 15 MG TAB PO SCH ×2 (09:49→20:50)
[2017-10-07] MEDS ORDERED: BISACODYL 10 MG SUPP PR PRN (09:55)
[2017-10-07] MEDS ORDERED: MAGNESIUM HYDROXIDE 30 ML UDCUP PO PRN (09:55)
[2017-10-07] MEDS: GABAPENTIN 300 MG CAP PO SCH ×3 (10:33→20:50)
[2017-10-07] MEDS: VENLAFAXINE XR 75 MG CAP PO SCH (10:33)
[2017-10-07] MEDS: CHOLECALCIFEROL VIT D3 1,000 UNITS TAB PO SCH (10:34)
[2017-10-07] MEDS: HYDROCORTISONE 100 MG/2 ML VIAL IVP SCH ×2 (10:34→20:49)
[2017-10-07] MEDS: ENOXAPARIN 40 MG/0.4 ML SYR SC SCH (10:34)
[2017-10-07] MEDS: ACETAMINOPHEN 325 MG TAB PO PRN ×2 (10:50→18:29)
--- NOTE | 2017-10-07 11:54 | SOAPPROG ---
SOAP Progress Note Assessment/Plan: Assessment/Plan: 62 yo woman w stage IV (ER+) breast cancer admitted w AMS, fever, and fatigue, discovered to have bilateral PNA 1. PNA - abx for CAP on RA and sating well 2. Fatigue - likely related to #1 and anemia 3. Anemia - normocytic imagine due to previous chemo and XRT and anemia of chronic disease check iron studies today s/p 1 unit of PRBCs 10/06 iron stidies show anemia of chronic dz can give EPO as outpt if home soon 4. AMS - improved 5. Breast ca - stage IV; on Eribulin most recently too early to assess response palliative XRT to spinal cathleen mets recently 10/06/17 11:06 10/07/17 11:50 Subjective: Up in chair and more alert this morning reports throbbing in spine and headache Objective: Vital Signs Temp Pulse Resp BP Pulse Ox 36.8 C 80 16 145/92 H 98 10/07/17 08:00 10/07/17 08:00 10/07/17 08:00 10/07/17 08:00 10/07/17 08:00 Laboratory Results 10/07/17 05:15 10/07/17 05:15 10/06/17 10/07/17 10/08/17 05:59 05:59 05:59 Intake Total 3792 1890 Output Total 5000 1500 Balance -1208 390 Gen - NAD, sitting up in chair HEENT - anicteric CV - RRR Resp - CTAB Abd - soft, NT Ext - no sig edema Neuro - answering Q's appropriately alert and oriented ICD10 Worksheet Patient Problems: Problems Problem Status Onset Anemia Acute Chemotherapy adverse reaction Acute Fever Acute Metastatic breast cancer Acute Pneumonia Acute Hip pain Acute
[2017-10-07] MEDS: SENNOSIDES/DOCUSATE SODIUM TAB PO SCH (20:50)
[2017-10-07] MEDS ORDERED: POTASSIUM CL 10 MEQ TAB PO ONE (23:29)
[2017-10-08 05:15] LABS: PLATELET COUNT 177 10^3/uL (150-400)
[2017-10-08] MEDS ORDERED: POTASSIUM CL 10 MEQ TAB PO ONE (09:00)
[2017-10-08 09:35] VITALS: BP 135/99
[2017-10-08] MEDS: SENNOSIDES/DOCUSATE SODIUM TAB PO SCH (09:58)
[2017-10-08] MEDS: GABAPENTIN 300 MG CAP PO SCH (09:58)
[2017-10-08] MEDS: morphINE SR 15 MG TAB PO SCH (09:58)
[2017-10-08] MEDS: VENLAFAXINE XR 75 MG CAP PO SCH (09:58)
[2017-10-08] MEDS: CHOLECALCIFEROL VIT D3 1,000 UNITS TAB PO SCH (09:58)
--- NOTE | 2017-10-08 09:58 | HOSPPROG ---
Hospitalist Progress Note Assessment/Plan: 62 yo F w metastatic breast CA and CAP Acute hypoxic resp failure: due to CAP. TR on echo. CAP: Resolved. Day 4 abx Indeterminate troponin: echo with no WMA. Suspect due to acute illness. No chest pain. Can consider stress outpatient Hypotension: resolved with IVFs, steroids. Titrate off steroids. Normal EF on echo. Metabolic encephalopathy: resolved. Due to infection Weakness: anemia and infection. Encourage to sit in chair Hypokalemia: replete Anemia: s/p 1 unit RBC 10/06 Metastatic breast cancer: Eribulin, XRT to spine metastases Chronic pain: MS Contin, Gabapentin. Bowel regimen Moderate protein caloric malnutrition: encourage PO intake Deconditioning: PT/OT Diet: regular DVT ppx: SCDs Disp: home today > 30 minutes Subjective: on RA. amenable to dc Objective: Vital Signs Temp Pulse Resp BP Pulse Ox 36.8 C 83 15 135/99 H 95 10/08/17 09:33 10/08/17 09:33 10/08/17 09:33 10/08/17 09:33 10/08/17 09:33 Laboratory Results 10/08/17 05:09 10/08/17 05:09 10/07/17 10/08/17 10/09/17 05:59 05:59 05:59 Intake Total 1890 1050 Output Total 1500 1 Balance 390 1049 - Physical Exam Constitutional: no apparent distress, appears nourished Eyes: PERRL, anicteric sclera Ears, Nose, Mouth, Throat: moist mucous membranes, hearing normal Cardiovascular: regular rate and rhythym, no murmur, rub, or gallop, No systolic murmur Respiratory: no respiratory distress, clear to auscultation Gastrointestinal: normoactive bowel sounds, soft, non-tender abdomen Genitourinary: no bladder fullness, No taveras in urethra Skin: warm, normal color Musculoskeletal: full muscle strength, no muscle tenderness Neurologic: AAOx3 ICD10 Worksheet Patient Problems: Problems Problem Status Onset Anemia Acute Chemotherapy adverse reaction Acute Fever Acute Metastatic breast cancer Acute Pneumonia Acute Hip pain Acute
[2017-10-08] MEDS: ENOXAPARIN 40 MG/0.4 ML SYR SC SCH (10:00)
--- NOTE | 2017-10-08 12:30 | ASMTLACE ---
LACE Length of stay for Answers: 4-6 days current admission Acuity / Level of Answers: Yes Care: Did the patient have an inpatient admission? Comorbidities - select Answers: Any tumor (including all that apply lymphoma or leukemia) Other Notes: mets to bone, liver, brain # of Emergency department Answers: 3-4 visits in the last 6 months Score: 13 Date Signed: 10/08/2017 12:30 PM Electronically Signed By:Lolly Gil LCSW
--- NOTE | 2017-10-08 14:42 | ASDISCHSUM ---
Discharge Information Plan Status: Medically Cleared to Leave: Discharge Date:10/08/2017 11:56 AM D/C Disposition: ADT D/C Disposition:Home, Routine, Self-Care Projected Discharge Date:10/07/2017 11:00 AM Transportation at D/C: Discharge Delay Reason: Follow-Up Date:10/07/2017 11:00 AM Discharge Slot: Final Diagnosis: Placement Information Referral Type:Palliative Care Referral ID:[id number] Provider Name:[facility] Address 1:[address] [facility] Phone Number: Address 2: Fax Number: City:[place] Selection Factors: State:[place] Patient Contact Information Contact Name:BOZENAMAYELINWILLIAM Relationship: Address:[address] [facility] City:[facility] Phone: State/Zip Code:[place] [address] Email: Financial Information Financial Class:Zael[employer] Primary Plan Desc:ANGIE BROWN Primary Plan Number:[id number] Secondary Plan Desc: Secondary Plan Number: Assessment Information LACE LACE Length of stay for Answers: 4-6 days current admission Acuity / Level of Answers: Yes Care: Did the patient have an inpatient admission? Comorbidities - select Answers: Any tumor (including all that apply lymphoma or leukemia) Other Notes: mets to bone, liver, brain # of Emergency department Answers: 3-4 visits in the last 6 months Score: 13 Date Signed: 10/08/2017 12:30 PM Electronically Signed By:Lolly Gil LCSW [facility] [place] Progress Note CM Note CM Note Notes: Pt presented to the Emergency Department today with fatigue, feeling feverish and lightheaded. Pt has a history of mestastatic breast cancer (with mets to the bone, liver and brain), s/p mastectomy. The pt just started a new chemo four weeks ago. The pt is accompanied by her partner. She will be admitted for further eval and treatment. Discharge needs remain unclear at this time. CM will continue to follow. Current Discharge Plan: To be determined Date Signed: 10/04/2017 06:17 PM Electronically Signed By:Jeniffer Murcia RN [facility] CM Progress Note CM Note CM Note Notes: Pt admitted for bilateral pna. She is currently in treat for met. breast ca. Pt is current with [facility]. Alerted them to her admission. At this time, she has no other DC needs. Date Signed: 10/05/2017 03:02 PM Electronically Signed By:Lolly Gil LCSW [facility] CM Progress Note CM Note CM Note Notes: Met with patient to verify her PCP. She states she can follow up with Dr. Moreno in [place]. She also inquired about "[employer]" [employer] to help with her upcoming cost as she is moving. She stated that Eveline Hoang nurse navigator was buy to see her and will be back. Per therapy no needs identified at this time. CM available should needs arise. Date Signed: 10/06/2017 01:33 PM Electronically Signed By:Vashti Dent RN Intervention Information
--- NOTE | 2017-10-08 16:27 | GDS ---
[f rep st] DISCHARGE SUMMARY DISCHARGE DIAGNOSES: 1. Community-acquired pneumonia. 2. Metastatic breast cancer. 3. Anemia. 4. Metabolic encephalopathy. 5. Indeterminate troponin. HOSPITAL COURSE: Please see Admission History and Physical by Dr. Cate Shelton. The patient present ed with lethargy and weakness, as well as fever. Chest x-ray demonstrated pneumonia. She was starte d on ceftriaxone and azithromycin for community-acquired coverage. She had an echocardiogram showing no wall motion abnormalities. She had no chest pain or EKG changes. She did have a positive tropon in that trended to normal. This is attributed to the stress of her presentation. The patient is discharged home having received 5 days of IV antibiotics while here. She received 1 u nit of packed red cells while here. There were no new medications. /[id number]/MODL
--- NOTE | 2017-10-13 12:00 | PQFORM ---
PHYSICIAN QUERY FORM Needs Your Response This query form is being sent to you to assure this patient record is coded properly. Please respond to the question below: VAN LOADER QUESTION: Dr. Zaragoza, On the day following admission, Dr. Villela documents that the patient had sepsis on admission due to pneumonia. There is also documentation throughout the notes that the patient has acute hypoxic respiratory failure and metabolic encephalopathy due to the infection. Sepsis was not mentioned as being present on this admission in your discharge summary. After study, can it be determined that this patient had sepsis, present on admission? X___Yes No Unable to determine Other Thank you for clarifying, JOSEE Singh HIM Coding INSTRUCTIONS FOR RESPONSE: Answer question by clicking on the "Edit Document" button. Move cursor to area below the stars. When complete, hit "Save." Click on the "Sign" button, then click "Sign" again. Type in your PIN and hit "Enter." MTDD
== END 2017-10-08 11:56 | disposition home or self-care (01) | DRG 871 ==
LOC: OBSVTOIN 17:39 → INTOOBSV 17:39 → F1N 19:47
PROVIDERS: ADMIT Internal Medicine; ATTEND Internal Medicine
PROC: 30233N1 Transfusion of Nonautologous Red Blood Cells into Peripheral Vein, Percutaneous Approach (ICD-10-PCS; principal; 2017-10-06)
DX: A41.9 Sepsis, unspecified organism (principal); J18.9 Pneumonia, unspecified organism; R65.20 Severe sepsis without septic shock; J96.01 Acute respiratory failure with hypoxia; G93.41 Metabolic encephalopathy; C79.31 Secondary malignant neoplasm of brain; C78.7 Secondary malignant neoplasm of liver and intrahepatic bile duct; C79.51 Secondary malignant neoplasm of bone; E87.6 Hypokalemia; E44.0 Moderate protein-calorie malnutrition; M25.552 Pain in left hip; D63.8 Anemia in other chronic diseases classified elsewhere; D64.81 Anemia due to antineoplastic chemotherapy; G89.29 Other chronic pain; F11.20 Opioid dependence, uncomplicated; E83.51 Hypocalcemia; E86.0 Dehydration; Z90.11 Acquired absence of right breast and nipple; Z85.3 Personal history of malignant neoplasm of breast; Z66 Do not resuscitate
CPT/HCPCS: 82607-90; 96365; 97165-GO; 97530-GO; 97535-GO; G0378; J0456; J0610; J0696; J1170; J1642; J1650; J1720; J2405; P9016

== ENCOUNTER 2017-10-18 11:19 | Inpatient (IN) | payer OTHER ==
[2017-10-18] MEDS ORDERED: ACETAMINOPHEN 500 MG TAB ONE (11:38)
--- NOTE | 2017-10-18 11:44 | EDPHY ---
HPI/HX/ROS/PE/MDM Narrative: CHIEF COMPLAINT: Dizzy, shortness of breath HISTORY OF PRESENT ILLNESS: The patient is a 62 y/o female with a history of metastatic breast cancer complaining of feeling dizzy and short of breath. On 10/04/17, 14 days ago, the patient was admitted for four days due to a pneumonia. At this time the patient was hypotensive, had mild hypoxia, low potassium and an elevated troponin. Upon discharge after the admission, she was not sent home with supplemental oxygen or an antibiotic (as the pneumonia was community acquired). Last night the patient became more confused and had chills. Today she has had lower energy and more shortness of breath. She feels as if she has to put more effort into breathing and has had more rapid breathing than normal. At 10:00, 2 hours ago, she took two Tylenol tabs for her fever with mild relief. Last chemotherapy treatment was on , 2 days ago. No cough, chest pain, palpitations, vomiting, diarrhea, urinary complaints, headache, lightheadedness. Prior medical records reviewed including a discharge summary on 10/08/17. REVIEW OF SYSTEMS: Aside from elements discussed in the HPI, a comprehensive 10-point review of systems was reviewed and is negative. PAST MEDICAL HISTORY: Breast cancer with mets to liver, bone and brain. Mastectomy. Recent pneumonia requiring admission SOCIAL HISTORY: at bedside, lives in [place], not employed VITAL SIGNS: Temperature: 39.4, HR: 120, O2Sats: 84% GENERAL: Ben loss due to cancer, tired, well-developed, well-nourished. HEENT: Atraumatic. Eyes: No icterus, no injection. Mouth: dry mucous membranes. No erythema or lesions. Neck: supple with no adenopathy. LUNGS: Clear to auscultation bilaterally, isolated wheezes, coarse rhonchi, no rales. CARDIAC: Tachycaric, no rubs, murmurs or gallops. ABDOMEN: Soft, nontender, nondistended, bowel sounds normal. BACK: No CVA tenderness. EXTREMITIES: No trauma. No edema. Range of motion is normal throughout. NEURO: Alert and oriented, grossly nonfocal. SKIN: Warm and dry, no rash. PSYCHIATRIC: Normal mentation, no agitation Portions of this note were transcribed by a director of graduate medical education. I personally performed a history, physical exam, medical decision making, and confirmed accuracy of information the transcribed note. ED Course: The patient is a 62 y/o female with a history of metastatic breast cancer complaining of feeling dizzy and short of breath. She was recently admitted for a right upper lobe pneumonia. The patient was hypoxic at triage, so she was placed on supplemental oxygen. On exam, the patient is tachycardic, has coarse rhonchi throughout, and a temperature of 39.4 degrees. Labs, EKG, and chest x- ray ordered. 1L IV NS given. 1306: 12-LEAD EKG: Please see the full report in [facility]. My interpretation: Normal sinus rhythm with a rate of 96, borderline T wave abnormalities in the anterior leads. 1310: Patient's chest x-ray reveals a persistent pneumonia in the right upper lobe. Angio chest CT ordered. Her troponin is normal. 1410: Spoke with Dr. Lu, radiologist, he reports that the patient has right middle and lower lobe pulmonary emboli. 1414: Reassessed patient and discussed imaging findings. I have also discussed plan for admission, she is comfortable with this plan. 1415: Consulted with hospitalist service, Dr. Mike accepts admission of this patient. Lovenox administered per protocol. - Data Points Imaging Results: Imaging Impressions Chest X-Ray 10/18/17 11:59 Impression: Stable opacification in the right upper lobe, which could represent pneumonia. Improved aeration in the left lower lobe opacification. Probable mild underlying bronchitis. Chest/Thorax CTA 10/18/17 13:15 Impression: 1. Evidence of pulmonary embolus through a large portion of the right lower lobe and a small amount in the right middle lobe. 2. Probable residual pneumonia in the right upper lobe. Atelectasis at both lung bases. 2. Evidence of osseous metastatic disease in the thoracic spine and ribs and liver metastatic disease as above. Results called and discussed with Dr. Dulce Ivey on October 18, 2017 at 1409 hours. Imaging: Discussed imaging studies w/ on call pharmacy technician Radiologist, I viewed and interpreted images myself Laboratory Results: Laboratory Results 10/18/17 12:20 10/18/17 12:20 10/18/17 10/18/17 10/18/17 12:20 12:20 12:20 WBC 11.62 10^3/uL H 10^3/uL (3.80-9.50) RBC 3.90 10^6/uL L 10^6/uL (4.18-5.33) Hgb 10.7 g/dL L g/dL (12.6-16.3) Hct 32.5 % L % (38.0-47.0) MCV 83.3 fL fL (81.5-99.8) MCH 27.4 pg L pg (27.9-34.1) MCHC 32.9 g/dL g/dL (32.4-36.7) RDW 17.2 % H % (11.5-15.2) Plt Count 197 10^3/uL 10^3/uL (150-400) MPV 9.7 fL fL (8.7-11.7) Neut % (Auto) 93.4 % H % (39.3-74.2) Lymph % (Auto) 1.4 % L % (15.0-45.0) [place] % (Auto) 4.7 % % (4.5-13.0) Eos % (Auto) 0.0 % L % (0.6-7.6) Baso % (Auto) 0.2 % L % (0.3-1.7) Nucleat RBC Rel Count 0.0 % % (0.0-0.2) Absolute Neuts (auto) 10.85 10^3/uL H 10^3/uL (1.70-6.50) Absolute Lymphs (auto) 0.16 10^3/uL L 10^3/uL (1.00-3.00) Absolute Monos (auto) 0.55 10^3/uL 10^3/uL (0.30-0.80) Absolute Eos (auto) 0.00 10^3/uL L 10^3/uL (0.03-0.40) Absolute Basos (auto) 0.02 10^3/uL 10^3/uL (0.02-0.10) Absolute Nucleated RBC 0.00 10^3/uL 10^3/uL (0-0.01) Immature Gran % 0.3 % % (0.0-1.1) Immature Gran # 0.04 10^3/uL 10^3/uL (0.00-0.10) PT 14.6 SEC SEC (12.0-15.0) INR 1.12 (0.83-1.16) APTT 31.3 SEC SEC (23.0-38.0) VBG Lactic Acid Sodium 135 mEq/L mEq/L (135-145) Potassium 3.6 mEq/L mEq/L (3.5-5.2) Chloride 102 mEq/L mEq/L (97-110) Carbon Dioxide 25 mEq/l mEq/l (22-31) Anion Gap 8 mEq/L mEq/L (8-16) BUN 16 mg/dL mg/dL (7-23) Creatinine 0.5 mg/dL L mg/dL (0.6-1.0) Estimated GFR > 60 Glucose 111 mg/dL H mg/dL (70-100) Calcium 8.5 mg/dL mg/dL (8.5-10.4) Total Bilirubin 0.9 mg/dL mg/dL (0.1-1.4) Troponin I < 0.012 ng/mL ng/mL (0.000-0.034) 10/18/17 12:05 WBC RBC Hgb Hct MCV MCH MCHC RDW Plt Count MPV Neut % (Auto) Lymph % (Auto) [place] % (Auto) Eos % (Auto) Baso % (Auto) Nucleat RBC Rel Count Absolute Neuts (auto) Absolute Lymphs (auto) Absolute Monos (auto) Absolute Eos (auto) Absolute Basos (auto) Absolute Nucleated RBC Immature Gran % Immature Gran # PT INR APTT VBG Lactic Acid 1.4 mmol/L mmol/L (0.7-2.1) Sodium Potassium Chloride Carbon Dioxide Anion Gap BUN Creatinine Estimated GFR Glucose Calcium Total Bilirubin Troponin I Medications Given: Discontinued Medications Sodium Chloride (Ns) 1,000 mls @ 0 mls/hr IV ONCE ONE; Wide Open PRN Reason: Protocol Stop: 10/18/17 12:00 Last Admin: 10/18/17 12:13 Dose: 1,000 mls Microbiology Results: MICROBIOLOGY 10/18/17 12:20 Nasal, Sinus - Swab Respiratory Panel (PCR) - Final No Organism Detected General Time Seen by Provider: 10/18/17 11:41 Initial Vital Signs: Initial Vital Signs Temperature (C) 39.4 C H 10/18/17 11:23 Heart Rate 120 H 10/18/17 11:23 Respiratory Rate 17 10/18/17 11:23 Blood Pressure 102/63 10/18/17 11:23 O2 Sat (%) 84 L 10/18/17 11:23 O2 Delivery Mode Nasal Cannula O2 (L/minute) 2 Allergies/Adverse Reactions: oxycodone Allergy (Severe, Verified 10/04/17 18:06) Itching Home Medications: Medication Instructions Recorded Venlafaxine Xr [Effexor Xr 75MG 150 mg PO DAILY 07/29/17 (*)] morphINE SR [Ms Contin/Oramorph 15 30 mg PO BID 07/29/17 mg (*)] Cholecalciferol Vit D3 [Vitamin D3 1,000 units PO DAILY 08/27/17 2000 units tab (OTC)] Herbals/Supplements -Info Only 1 ea PO DAILY 08/27/17 Polyethylene Glycol 3350 [Miralax 17 gm PO DAILY PRN 08/27/17 17 gm (*)] Gabapentin [Neurontin 300 MG (*)] 300 mg PO TID #90 cap 08/31/17 Diazepam [Valium 5 MG (*)] 5 mg PO Q6-8PRN PRN 10/04/17 HYDROmorphone HCL [Dilaudid 2 mg 1 mg PO Q3-4PRN PRN 10/04/17 (*)] Pantoprazole Sodium [Protonix 40mg 40 mg PO DAILY PRN 10/04/17 (*)] Sennosides [Senna Lax] 8.6 mg PO DAILY PRN 10/04/17 Vitamin B Complex [Vitamin B 1 each PO DAILY 10/04/17 Complex (OTC)] Departure - Departure Disposition: [facility] Acute Clinical Impression: Hypoxia Fever Qualifiers: Fever type: due to other condition Qualified Code(s): R50.81 - Fever presenting with conditions classified elsewhere Pulmonary embolism Qualifiers: Pulmonary embolism type: other Chronicity: acute Acute cor pulmonale presence: with acute cor pulmonale Qualified Code(s): I26.09 - Other pulmonary embolism with acute cor pulmonale Condition: Fair Referrals: Nessa Tapia MD [Primary Care Provider] - As per Instructions Report Scribed for: Dulce Ivey Report Scribed by: Mayi Eduardo Date of Report: 10/18/17 Time of Report: 11:44
[2017-10-18] MEDS ORDERED: NS 1,000 ML IV ONE (11:59)
[2017-10-18 12:29] LABS: PLATELET COUNT 197 10^3/uL (150-400)
[2017-10-18 12:39] LABS: INR 1.12 (0.83-1.16); PROTIME(PATIENT) 14.6 SEC (12.0-15.0)
--- NOTE | 2017-10-18 13:08 | CPEKG ---
Heart Rate: 96 RR Interval: 625 P-R Interval: 148 QRSD Interval: 84 QT Interval: 384 QTC Interval: 486 P [place]: 46 QRS [place]: 25 T Wave [place]: 4 EKG Severity - ABNORMAL ECG - EKG Impression: SINUS RHYTHM EKG Impression: LEFT ATRIAL ABNORMALITY EKG Impression: BORDERLINE T ABNORMALITIES, ANTERIOR LEADS EKG Impression: BORDERLINE PROLONGED QT INTERVAL Electronically Signed By: Dulce Ivey 18-Oct-2017 14:11:21
[2017-10-18] MEDS ORDERED: IOPAMIDOL (ISOVUE 370) 100 ML BTL IV ONE (13:22)
[2017-10-18] MEDS ORDERED: ONDANSETRON 4 MG/2 ML VIAL IVP PRN (14:26)
[2017-10-18] MEDS ORDERED: ONDANSETRON DISINTEGRATING 4 MG TAB PO PRN (14:26)
[2017-10-18] MEDS ORDERED: ACETAMINOPHEN 325 MG TAB PO PRN (14:26)
[2017-10-18] MEDS ORDERED: ENOXAPARIN 60 MG/0.6 ML SYR SC SCH (15:30)
[2017-10-18] MEDS ORDERED: SENNOSIDES 1 TAB PO PRN (15:52)
[2017-10-18] MEDS ORDERED: POLYETHYLENE GLYCOL 3350 17 GM PKT PO PRN (15:52)
[2017-10-18] MEDS: ENOXAPARIN 80 MG/0.8 ML SYR SC SCH ×2 (15:52→16:32)
[2017-10-18] MEDS ORDERED: HYDROmorphONE/DILAUDID 2 MG TAB PO PRN (15:52)
[2017-10-18] MEDS ORDERED: PANTOPRAZOLE SODIUM 40 MG TAB PO PRN (15:52)
[2017-10-18] MEDS: CEFEPIME HCL 2 GM in STERILE WATER INJ 12.5 ML IV SCH ×2 (15:53→21:55)
--- NOTE | 2017-10-18 16:19 | GHP ---
[f rep st] HISTORY AND PHYSICAL DATE OF ADMISSION: 10/18/2017 CHIEF COMPLAINT: Shortness of breath. HISTORY OF PRESENT ILLNESS: The patient is a 62-year-old female with history of metastatic breast cancer and recent hospitalization for pneumonia, who presents to the emergency department with shortness of breath and fever. She notes during her last hospitalization, she never did have cough or fever. Chart review reveals a positive troponin at that time, though she has remained chest pain free. She was treated for 5 days with IV antibiotics for presumed pneumonia. Over the past 2 days, she has become more short of breath and today she noted a fever to 103 associated with shaking chills and rigors. She continues to deny cough, chest pain, or pleuritic symptoms. However, her dyspnea worsened and she presented to the emergency department for further evaluation. She was originally diagnosed with breast cancer in 2010 with invasive ductal carcinoma. She underwent radical mastectomy with axillary node dissection and multiple rounds of chemo over the past several years. She is now noted to have metastatic disease in her brain, multiple osseous sites in her liver. She is followed by Dr. Terrazas at the [facility], is currently receiving eribulin weekly. In the emergency department, CT pulmonary angiogram revealed right lower lobe and right middle lobe pulmonary emboli with a persistent right upper lobe opacity which is unchanged from 2 weeks ago. There is some clearing noted in the left lower lobe. She is admitted to the hospital for further management. PAST MEDICAL HISTORY: 1. Metastatic breast cancer followed by Dr. Terrazas, currently on eribulin. 2. Chronic anemia. 3. Chronic pain secondary to bony metastases. 4. Chronic opioid dependence. PAST MEDICAL HISTORY: 1. Right mastectomy. 2. Port placement. 3. History of . MEDICATIONS: Please see [facility] for completed outpatient medication list. ALLERGIES: Oxycodone. FAMILY HISTORY: Positive for ovarian cancer and hypertension. SOCIAL HISTORY: Patient is . Her is present at the bedside. She is a lifetime nonsmoker, though had significant secondhand smoke exposure growing up. She denies alcohol or drug use. REVIEW OF SYSTEMS: A 10-point review of systems performed, negative except as per HPI. OBJECTIVE: VITAL SIGNS: Temperature on arrival is 39.4, blood pressure 118/72 , heart rate 100-120, respiratory rate 18, she is 99% on 2 L of oxygen by nasal cannula. As noted, she was 84% on room air upon arrival and her heart rate is down into the 90s now. GENERAL: Patient is awake, alert, oriented, in no acute distress. HEENT: Head is atraumatic, normocephalic. Pupils equal, round , and reactive to light. Extraocular muscles intact. Oropharynx is clear. Mucous members are moist. NECK: Supple. There is no JVD. HEART: Has a regular rate and rhythm without murmur. LUNGS: Reveal diminished breath sounds at both bases with faint bibasilar crackles. ABDOMEN: Soft, nondistended, nontender with normoactive bowel tones. EXTREMITIES: Without cyanosis, clubbing, or edema. NEUROLOGIC: Grossly nonfocal. LABORATORY DATA: CBC reveals a white blood cell count of 11.6, up from 2.5 four days ago; hemoglobin 10.7; hematocrit 32.5; platelets are 197. She has 93 % neutrophils. Lactate is normal. INR is normal at 1.1. Basic metabolic panel shows normal electrolytes, normal kidney function with a creatinine of 0.5. Troponin is negative. Note, her troponin October 05 was 1.32 and repeat was 0.697. Urinalysis is negative. IMAGING: Chest x-ray performed in the emergency department reveals persistent, stable, right upper lobe consolidation with improved aeration in the left lower lobe. CT pulmonary angiogram shows evidence of pulmonary embolus through a large portion of the right lower lobe and small amount in the right middle lobe with suspected residual pneumonia in the right upper lobe as well as atelectasis at both lung bases and evidence of osseous metastatic disease in the thoracic spine, ribs, and liver. EKG shows normal sinus rhythm. Some nonspecific T-wave abnormalities are noted in anterior leads, though these are improved from 2 weeks ago. She also has flipped T-waves in lead III. ASSESSMENT AND PLAN: The patient is a 62-year-old female with history of metastatic breast cancer who presents to the emergency department with shortness of breath, fever, and found to have pulmonary emboli. 1. Acute hypoxemic respiratory failure secondary to pulmonary embolism. She is hemodynamically stable. No evidence of right heart strain on CT. She just had an echocardiogram October 05, which showed normal pulmonary artery pressure. Will start Lovenox 1 mg/kg twice daily and monitor her on telemetry. I will defer repeating her echocardiogram at this time. I discussed the case with Hematology/Oncology. They will see her tomorrow. She may be able to transition to an oral DOAC upon discharge. Will also check a lower extremity ultrasound to evaluate for DVT as a source. 2. Possible pneumonia. She presents with fever of 39.4 and tachycardia, thus meeting SIRS criteria for sepsis. Lactate is normal, no hypotension. She clinically does not have symptoms of pneumonia and I note that PE could also be a source of fever. However, given her persistent right upper lobe opacity with a rising white blood cell count to 11.6 from 2.5 four days ago in the setting of fevers and rigors, I think she warrants treatment while we await culture data. A procalcitonin is sent. Will start cefepime given her recent hospitalization. Blood cultures are pending. 3. Breast cancer with metastases to the brain, liver and extensive osseous metastases, followed by Dr. Terrazas, currently on eribulin weekly therapy. Oncology is alerted to admission, will see patient tomorrow. Continue home doses of MS Contin and Dilaudid for pain control. 4. Chronic anemia. There is no evidence of active bleeding. Her hemoglobin is stable. Will continue to follow. CODE STATUS: I did discuss code status with the patient. She is a DNR. This will be honored. DISPOSITION: Patient is admitted to inpatient status as I anticipate greater than 48 hours hospitalization for ongoing management of her acute hypoxemia, possible pneumonia, and pulmonary embolism. /[id number]/MODL MTDD
--- NOTE | 2017-10-18 16:45 | PDMN ---
Medical Necessity Medical necessity: C/M review: Patient meets INPT criteria under [facility] M-290 Pulmonary embolism: Acute and persistent hypoxic respiratory failure secondary to acute pulmonary embolism - CT pulmonary angiogram shows evidence of pulmonary embolus through a large portion of the RLL and small amount in the RML with suspected residual pneumonia in the RUL as well as atelectasis at both lung bases and evidence of osseous metastatic disease in the thoracic spine, ribs and liver, 84% RA sat, fever - 39.4 T max, Doppler venous US shows evidence of DVT in the left popliteal vein and left posterior tibial and peroneal veins in the calf, small segment of DVT and a posterior vein in the right calf, shortness of breath, possible pneumonia, WBC 11.62, requiring planned Oncology consult, ongoing subcutaneous Lovenox BID, IV Cefepime Q 8 hrs. , pulse oximetry, supplemental O2, comorbid breast cancer with metastasis to the brain, liver, and extensive osseous metastasis - currently treated with eribulin, chronic anemia, chronic pain due to bony metastasis, chronic opioid dependence, history of right mastectomy, post placement, recent hospitalization for pneumonia anticipates > 2 MN LOS for ongoing med nec for eval and TX of above.
[2017-10-18] MEDS: GABAPENTIN 300 MG CAP PO SCH ×2 (17:16→21:54)
[2017-10-18] MEDS: morphINE SR 15 MG TAB PO SCH (21:54)
[2017-10-19] MEDS: CEFEPIME HCL 2 GM in STERILE WATER INJ 12.5 ML IV SCH ×3 (05:13→20:59)
[2017-10-19] MEDS: ENOXAPARIN 80 MG/0.8 ML SYR SC SCH ×2 (05:18→17:32)
[2017-10-19 05:42] LABS: PLATELET COUNT 179 10^3/uL (150-400)
[2017-10-19] MEDS: VENLAFAXINE XR 75 MG CAP PO SCH (08:35)
[2017-10-19] MEDS: CHOLECALCIFEROL VIT D3 2,000 UNITS TAB/CAP PO SCH (08:36)
[2017-10-19] MEDS: morphINE SR 15 MG TAB PO SCH ×2 (08:37→20:58)
[2017-10-19] MEDS: GABAPENTIN 300 MG CAP PO SCH ×3 (08:37→20:58)
--- NOTE | 2017-10-19 11:52 | ASMTCMCOM ---
CM Note CM Note Notes: Chart reviewed. Met with patient and her to review plan of care. She is hoping to qualify for home oxygen. She shares with me that she has [facility] but would like a HHC RN to check on her in this period of a new diagnosis. She also shares that they are being faced with a move that she finds to be stressful. She has had previous contact with Eveline Garcia the mini bar attendant and she is aware of the integrative care services available to her. CM to follow Plan: Home with home oxygen if eligible and possibly HHC. Date Signed: 10/19/2017 11:52 AM Electronically Signed By:Vashti Dent RN
--- NOTE | 2017-10-19 12:07 | GCON ---
[f rep st] CONSULTATION ONCOLOGY INITIAL VISIT PRIMARY ONCOLOGIST: Dinesh Terrazas MD REASON FOR VISIT: E and M for breast cancer and PE. HISTORY OF PRESENT ILLNESS: The patient is a 62-year-old woman with metastatic breast cancer. She w as initially diagnosed in 2010 as a stage IIIC of the right breast. She underwent a radical mastecto my and axillary node dissection followed by chemotherapy with doxorubicin and Cytoxan, followed by pa clitaxel given weekly. She also received post mastectomy radiotherapy. She then developed metastati c disease at multiple bony sites. She has had several previous therapies include including fulvestra nt with palbociclib, weekly Taxol on a study plus/minus , capecitabine, and most recently s he has been on weekly eribulin since July of this year. Her last dose was on October 16. She also had painful bony metastases earlier this year and finished palliative radiation to her low spine as well as the left hip. She was in the hospital earlier this month with a fever and chills. Chest x-ray showed possibly righ t upper lobe and left lower lobe infiltrates. She was treated with antibiotics and seemed to feel a little bit better at least for a couple days. Yesterday, she called stating that she was having chil ls again and then noted a fever up to 103. She called and I called her back, but she had already lef t and she had taken herself to the emergency room. There she had a temperature 39.4, saturating 84%, heart rate 120. Chest x-ray showed really no significant change. She did not have a D-dimer but sh e had a CT angiogram that revealed a pulmonary embolism to the large portion of the right lower lobe and a small amount in the right middle lobe. There may be some residual infiltrate in the right uppe r lobe and also evidence of bone and liver metastases. She was started on anticoagulation and she fe els much better this morning, and she slept better. She has no other acute complaints. Her pain in her hips has improved and at home she has been walking better. She denied any lower extremity swelli ng, although she did have some calf stiffness and tenderness the last few days. ALLERGIES: She is allergic to oxycodone. HOME MEDICATIONS: Include vitamin B complex, Effexor, senna, MiraLAX, MS Contin 15 mg b.i.d., panto prazole, hydromorphone, gabapentin, diazepam, and cholecalciferol. CHRONIC ILLNESSES: 1. Breast cancer as described in HPI. 2. Chronic anemia probably related to the malignancy. SURGICAL HISTORY: Includes mastectomy and a previous . FAMILY HISTORY: Positive for ovarian cancer in her paternal grandmother. SOCIAL HISTORY: She is . Nonsmoker. 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 REVIEW OF SYSTEMS: 10-point review of systems is performed. Pertinent positives as per HPI, otherwi se negative. PHYSICAL EXAMINATION: VITAL SIGNS: Temp is 36.7, pulse 84, blood pressure 121/87. She is now satur ating at 99% on 3 L. GENERAL: She is a comfortable-appearing woman in no distress. HEENT: Unremar kable. LUNGS: Clear. CARDIAC: Regular, without murmur. ABDOMEN: Soft, nontender. EXTREMITIES: Reveal no edema. CT angiogram as per HPI. Doppler ultrasound showed DVT in the left popliteal vein and posterior tibial and peroneal veins and then a small one in the posterior tibial vein of the right calf. White count yesterday was 11,000, today it is 4800. Hemoglobin yesterday was 10.7, today 9.6. Plate let count is 179,000. Creatinine is normal. UA was unremarkable. IMPRESSION: 1. Metastatic breast cancer, on chemotherapy. 2. Acute pulmonary embolism and deep vein thrombosis. She seems to be doing much better since starting on anticoagulation and it is possible that she has b een having thromboembolic episodes for a while, but difficult to prove. Aside from the fever and chi lls and of course the hypoxia and tachycardia when she arrived, she did not have a lot of other clini rosina symptoms. I do not know for sure if the previous pneumonia could have been related or not. We d iscussed the different mechanisms of treatment including staying on low-molecular weight heparin miki e, switching to warfarin, or switching to 1 of the newer oral agents such as Xarelto. I recommended Xarelto as it has the least amount of interactions, most convenient and a lower bleeding risk. I als o explained it does not have antidote for if there is bleeding, but it has a short half-life. I also let her know that it is important that she not miss any doses. She would favor that if it is going to be covered by her pharmacy. I spoke with the hospitalist and they will start working on arrangeme nts, see if she can go home today or tomorrow with close followup. /[id number]/MODL
--- NOTE | 2017-10-19 17:39 | HOSPPROG ---
Hospitalist Progress Note Assessment/Plan: * Acute PE -Sub Q Lovenox -change to oral agent at discharge * Pneumonia -IV cefepime pending cultures * Metastatic breast Ca * Continuous narcotic dependency -home MS contin + PO dilaudid Subjective: Feels pretty good Objective: Vital Signs Temp Pulse Resp BP Pulse Ox 36.7 C 93 16 109/70 95 10/19/17 15:12 10/19/17 15:24 10/19/17 15:12 10/19/17 15:12 10/19/17 15:24 Laboratory Results 10/19/17 05:13 10/18/17 10/19/17 10/20/17 05:59 05:59 05:59 Intake Total 900 1100 Output Total 0 Balance 900 1100 PT 14.6 SEC (12.0-15.0) 10/18/17 12:20 INR 1.12 (0.83-1.16) 10/18/17 12:20 case d/w Dr Roberts - looks pretty good, home soon CTA chest - PE and PNA - Physical Exam Constitutional: no apparent distress, appears nourished, not in pain Cardiovascular: regular rate and rhythym, no murmur, rub, or gallop Respiratory: no respiratory distress, no rales or rhonchi, clear to auscultation Gastrointestinal: normoactive bowel sounds, soft, non-tender abdomen, no palpable masses Skin: no rashes or abrasions, no fluctuance, no induration Neurologic: AAOx3, sensation intact bilaterally Psychiatric: interacting appropriately, not anxious, not encephalopathic, thought process linear ICD10 Worksheet Patient Problems: Problems Problem Status Onset Fever Acute Hypoxia Acute Pulmonary embolism Acute Anemia Acute Chemotherapy adverse reaction Acute Hip pain Acute Metastatic breast cancer Acute Pneumonia Acute
[2017-10-19] MEDS: DIAZEPAM 5 MG TAB PO PRN (20:58)
[2017-10-20] MEDS: ENOXAPARIN 80 MG/0.8 ML SYR SC SCH (05:46)
[2017-10-20] MEDS: CEFEPIME HCL 2 GM in STERILE WATER INJ 12.5 ML IV SCH (05:47)
[2017-10-20 06:06] LABS: PLATELET COUNT 169 10^3/uL (150-400)
--- NOTE | 2017-10-20 09:19 | ASMTCMCOM ---
CM Note CM Note Notes: Chart reviewed for discharge planning purposes. Per PT and OT patient is cleared to go home independently. Eveline Talley Oncology Nurse Navigator will stop by and see her this am. Likely to discharge today. Plan: Home Independent Date Signed: 10/20/2017 09:18 AM Electronically Signed By:Vashti Dent RN
[2017-10-20] MEDS: VENLAFAXINE XR 75 MG CAP PO SCH (10:24)
[2017-10-20] MEDS: GABAPENTIN 300 MG CAP PO SCH (10:25)
[2017-10-20] MEDS: CHOLECALCIFEROL VIT D3 2,000 UNITS TAB/CAP PO SCH (10:25)
[2017-10-20] MEDS: DIAZEPAM 5 MG TAB PO PRN (10:27)
[2017-10-20] MEDS: morphINE SR 15 MG TAB PO SCH (10:27)
--- NOTE | 2017-10-20 11:43 | PDIAF ---
- Diagnosis Diagnosis: acute PE and pneumonia Code Status: Do Not Resuscitate - Medication Management Discharge Medications: Medications to Continue on Transfer Venlafaxine Xr [Effexor Xr 75MG (*)] 150 mg PO DAILY 07/29/17 [Last Taken ] morphINE SR [Ms Contin/Oramorph 15 mg (*)] 15 mg PO BID 07/29/17 [Last Taken ] Cholecalciferol Vit D3 [Vitamin D3 2000 units tab (OTC)] 1,000 units PO DAILY [Last Taken 08/26/17] Herbals/Supplements -Info Only 1 ea PO DAILY 08/27/17 [Last Taken Unknown] Polyethylene Glycol 3350 [Miralax 17 gm (*)] 17 gm PO DAILY PRN 08/27/17 [Last Taken 10/03/17] Gabapentin [Neurontin 300 MG (*)] 300 mg PO TID #90 cap 08/31/17 [Last Taken ] Diazepam [Valium 5 MG (*)] 5 mg PO Q6-8PRN PRN 10/04/17 [Last Taken Unknown] HYDROmorphone HCL [Dilaudid 2 mg (*)] 1 mg PO Q3-4PRN PRN 10/04/17 [Last Taken 10/17/17] Pantoprazole Sodium [Protonix 40mg (*)] 40 mg PO DAILY PRN 10/04/17 [Last Taken Unknown] Sennosides [Senna Lax] 8.6 mg PO DAILY PRN 10/04/17 [Last Taken Unknown] Vitamin B Complex [Vitamin B Complex (OTC)] 1 each PO DAILY 10/04/17 [Last Taken Unknown] Apixaban [Eliquis] 5 mg PO BID #75 tab 10/20/17 [Last Taken Unknown] Cefuroxime Axetil [Ceftin (*)] 250 mg PO BID #10 tab 10/20/17 [Last Taken Unknown] Discharge Medications: Refer to the Discharge Home Medication list for PRN reason. - Orders Services needed: Home Care, Registered Nurse, Physical Therapy, Occupational Therapy Home Care Face to Face: I certify that this patient was under my care and that I had the required [id number] encounter meeting the encounter requirements on the discharge day. My findings support the fact that the patient is homebound as defined in Home Care Face to Face Continued: [facility] Chapter 7 Medicare Benefits Manual 30.1.1 , The condition of the patient is such that there exists a normal inability to leave home and consequently, leaving home would require a considerable and taxing effort. Isolation Type: None Diet Recommendation: no restrictions on diet - Follow Up Care Current Providers and Referrals: Nessa Tapia MD [Primary Care Provider] - As per Instructions
[2017-10-20 11:51] VITALS: BP 111/71
--- NOTE | 2017-10-20 12:00 | SOAPPROG ---
SOAP Progress Note Assessment/Plan: Assessment: 1. PE, DVT 2.Metastatic breast cancer Plan:Home today on Eliquis, follow up next week to review scans 10/20/17 11:58 Subjective: Feels ok Objective: Vital Signs Temp Pulse Resp BP Pulse Ox 98.1 F 95 16 111/71 93 10/20/17 11:37 10/20/17 11:37 10/20/17 11:37 10/20/17 11:37 10/20/17 11:37 Laboratory Results 10/20/17 05:50 10/19/17 10/20/17 10/21/17 05:59 05:59 05:59 Intake Total 900 2287.5 Output Total 0 1 Balance 900 2286.5 PT 14.6 SEC (12.0-15.0) 10/18/17 12:20 INR 1.12 (0.83-1.16) 10/18/17 12:20 Physical Exam - Physical Exam General Appearance: alert, no apparent distress Respiratory: normal breath sounds Cardiac/Chest: regular rate, rhythm Abdomen: normal bowel sounds, non-tender ICD10 Worksheet Patient Problems: Problems Problem Status Onset Fever Acute Hypoxia Acute Pulmonary embolism Acute Anemia Acute Chemotherapy adverse reaction Acute Hip pain Acute Metastatic breast cancer Acute Pneumonia Acute
--- NOTE | 2017-10-20 12:59 | ASMTLACE ---
LACE Length of stay for Answers: 2 days current admission Acuity / Level of Answers: Yes Care: Did the patient have an inpatient admission? Comorbidities - select Answers: Any tumor (including all that apply lymphoma or leukemia) Other Notes: pulmonary emboli # of Emergency department Answers: 1-2 visits in the last 6 months Score: 9 Date Signed: 10/20/2017 12:58 PM Electronically Signed By:Vashti Dent RN
--- NOTE | 2017-10-20 13:01 | ASMTCMCOM ---
CM Note CM Note Notes: Per MD, patient has been medically cleared for dc. No needs, CM available should needs arise. Plan: Home Independent Date Signed: 10/20/2017 01:00 PM Electronically Signed By:Vashti Dent RN
--- NOTE | 2017-10-20 19:38 | GDS ---
[f rep st] DISCHARGE SUMMARY DISCHARGE DIAGNOSES: 1. Acute pulmonary embolus. 2. Pneumonia. 3. Metastatic breast cancer. 4. Continuous narcotic dependency. HISTORY: The patient is a 62-year-old female who presented with shortness of breath and fever. CT a ngiogram of chest showed extensive pulmonary embolus. There was also a question of infiltrate consis tent with pneumonia. She was started on both subcutaneous Lovenox and IV antibiotics. She rapidly i mproved. She will discharge home on Eliquis. We will also do a short course of antibiotics for unde rlying possible pneumonia. Cultures are negative. DISCHARGE MEDICATIONS: Please see computerized record for full detailed list. New medications: 1. Eliquis 10 mg p.o. twice daily for 7 days and then 5 mg p.o. twice daily thereafter. 2. Ceftin 250 mg p.o. twice daily for 10 days. ADDITIONAL DISCHARGE INSTRUCTIONS: 1. Follow up with Primary Care and Oncology as scheduled. 2. Home health PT, OT, VNS arranged. Greater than 30 minutes' time was spent arranging this discharge. Patient seen and examined by me on day of discharge. /[id number]/MODL
== END 2017-10-20 14:42 | disposition home health service (06) | DRG 175 ==
LOC: F1N 16:07
PROVIDERS: ADMIT Hospitalist; ATTEND Internal Medicine
DX: I26.99 Other pulmonary embolism without acute cor pulmonale (principal); J18.9 Pneumonia, unspecified organism; I82.432 Acute embolism and thrombosis of left popliteal vein; I82.442 Acute embolism and thrombosis of left tibial vein; I82.492 Acute embolism and thrombosis of other specified deep vein of left lower extremity; C78.7 Secondary malignant neoplasm of liver and intrahepatic bile duct; C79.51 Secondary malignant neoplasm of bone; C79.31 Secondary malignant neoplasm of brain; F11.20 Opioid dependence, uncomplicated; D63.0 Anemia in neoplastic disease; G89.3 Neoplasm related pain (acute) (chronic); Z85.3 Personal history of malignant neoplasm of breast; Z90.13 Acquired absence of bilateral breasts and nipples; Z92.3 Personal history of irradiation; Z66 Do not resuscitate
CPT/HCPCS: 97161-GP; 97166-GO; 97535-GO; J0692; J1650; Q9967

== ENCOUNTER → 2017-10-28 | Outpatient (CLI) | payer OTHER | LOC: FIMAGING 10:24 | PROVIDERS: ATTEND Internal Medicine Hematology & Oncology | DX: R93.7 Abnormal findings on diagnostic imaging of other parts of musculoskeletal system (principal); C50.411 Malignant neoplasm of upper-outer quadrant of right female breast | CPT/HCPCS: A9503 ==

== ENCOUNTER 2018-01-03 09:15 | Inpatient (IN) | payer OTHER ==
[2018-01-03] MEDS ORDERED: ONDANSETRON 4 MG/2 ML VIAL IVP ONE (10:07)
[2018-01-03] MEDS ORDERED: NS 500 ML IV ONE (10:07)
--- NOTE | 2018-01-03 10:12 | EDPHY ---
H & P Time Seen by Provider: 01/03/18 09:36 HPI/ROS: CHIEF COMPLAINT: Headache, vomiting HISTORY OF PRESENT ILLNESS: The patient is a 62-year-old female with metastatic breast cancer presents to the emergency department with multiple complaints. Patient states she normally receives chemotherapy on (2 weeks on 1 week off). Yesterday the patient developed bilateral foot calf and shoulder pain. She had difficulty sleeping last night. She then developed a headache. Her headache is diffuse. It is moderate. She also developed nausea and vomiting x4. She has no visual change. She does describe photophobia. No neck stiffness. REVIEW OF SYSTEMS: My complete review of systems is negative except as mentioned in the HPI. Past Medical/Surgical History: Includes metastatic breast cancer, pneumonia, pulmonary embolus, narcotic dependence Past surgical history: Includes , mastectomy, port placement Social history: Patient does not smoke Smoking Status: Never smoked Physical Exam: 36.7, 112/81, 80, 17, 93% on room air GENERAL: Well-appearing, in no acute distress, alert. HEENT: Eyes normal to inspection, normal pharynx, no signs of dehydration. NECK: No thyromegaly, no lymphadenopathy, supple. RESPIRATORY: Clear to auscultation bilaterally, no rales, rhonchi or wheezing. Chest wall: Port in place. No surrounding erythema or warmth. CVS: Regular rate and rhythm, no rubs, murmurs, or gallops. ABDOMEN: Soft, nontender, nondistended, no organomegaly. BACK: Normal to inspection, no CVA tenderness. SKIN: Normal color, no rash, warm, dry. No pallor. EXTREMITIES: No pedal edema, no calf tenderness, no Homans sign or cords, no joint swelling. NEURO/PSYCH: Alert and oriented x3, normal mood and affect, normal motor sensory exam. No obvious cranial nerve deficit. Normal. Constitutional: Initial Vital Signs Temperature (C) 36.7 C 01/03/18 09:19 Heart Rate 88 01/03/18 09:19 Respiratory Rate 17 01/03/18 09:19 Blood Pressure 112/81 H 01/03/18 09:19 O2 Sat (%) 93 01/03/18 09:19 O2 Delivery Mode Room Air O2 (L/minute) 3 Allergies/Adverse Reactions: oxycodone Allergy (Severe, Verified 07/14/18 09:17) Itching Home Medications: Medication Instructions Recorded Venlafaxine Xr [Effexor Xr 75MG 150 mg PO DAILY 07/29/17 (*)] morphINE SR [Ms Contin/Oramorph 15 15 mg PO BID 07/29/17 mg (*)] Cholecalciferol Vit D3 [Vitamin D3 1,000 units PO DAILY 08/27/17 2000 units tab (OTC)] Herbals/Supplements -Info Only 1 ea PO DAILY 08/27/17 Polyethylene Glycol 3350 [Miralax 17 gm PO DAILY PRN 08/27/17 17 gm (*)] Gabapentin [Neurontin 300 MG (*)] 300 mg PO TID #90 cap 08/31/17 Diazepam [Valium 5 MG (*)] 5 mg PO Q6-8PRN PRN 10/04/17 HYDROmorphone HCL [Dilaudid 2 mg 1 mg PO Q3-4PRN PRN 10/04/17 (*)] Pantoprazole Sodium [Protonix 40mg 40 mg PO DAILY PRN 10/04/17 (*)] Sennosides [Senna Lax] 8.6 mg PO DAILY PRN 10/04/17 Vitamin B Complex [Vitamin B 1 each PO DAILY 10/04/17 Complex (OTC)] Apixaban [Eliquis] 5 mg PO BID #75 tab 10/20/17 Medical Decision Making - Diagnostics Imaging Results: Imaging Impressions Chest X-Ray 01/03/18 10:07 Impression: 1. Ill-defined patchy nodular infiltrate in these perihilar right lung and right upper lobe. This may be inflammatory or malignant in etiology. 2. Osseous metastatic disease, as above.. Head CT 01/03/18 10:07 Impression: Normal CT appearance of the brain. Multiple bony calvarial metastases, increased in number when compared to MRI brain July 15, 2017. Results called to Dr. Denisse Guzman at 10:45 AM at the time of the interpretation. ED Course/Re-evaluation: In the emergency department I discussed possible etiologies with the patient. I answered all her questions. Her port was accessed. Laboratory studies including blood cultures were ordered. Head CT and chest x-ray were ordered. Patient was given morphine 4 mg IV for headache. She is given Zofran 4 mg IV for nausea. Reviewed the patient's laboratory studies. White count is normal. Patient is mildly anemic. Patient's chemistry panel is notable for low sodium of 133. Chest x-ray: Please refer the dictated report. The patient has ill-defined nodule infiltrates in the perihilar right lung and right upper lobe. This may be inflammatory or malignant in etiology. I also considered pneumonia. Head CT: Please refer the dictated report. Patient has multiple new lesions in her cranium. No cerebral lesions. I discussed the results with the patient. I answered all her questions. She was given Rocephin 1 g IV and azithromycin 500 mg IV for possible pneumonia. She will be admitted for further observation. Dr. Shelton will admit. I discussed the case with Dr. Gallegos from oncology Differential Diagnosis: My differential includes but is not limited to bacteremia, sepsis, meningitis, encephalitis, mass, malignancy, pneumonia - Data Points Laboratory Results: Laboratory Results 01/03/18 09:55 01/03/18 09:55 01/03/18 01/03/18 01/03/18 09:55 09:55 09:55 WBC 5.65 10^3/uL 10^3/uL (3.80-9.50) RBC 4.15 10^6/uL L 10^6/uL (4.18-5.33) Hgb 11.2 g/dL L g/dL (12.6-16.3) Hct 33.5 % L % (38.0-47.0) MCV 80.7 fL L fL (81.5-99.8) MCH 27.0 pg L pg (27.9-34.1) MCHC 33.4 g/dL g/dL (32.4-36.7) RDW 17.0 % H % (11.5-15.2) Plt Count 174 10^3/uL 10^3/uL (150-400) MPV 9.4 fL fL (8.7-11.7) Neut % (Auto) 85.4 % H % (39.3-74.2) Lymph % (Auto) 4.1 % L % (15.0-45.0) [place] % (Auto) 9.7 % % (4.5-13.0) Eos % (Auto) 0.0 % L % (0.6-7.6) Baso % (Auto) 0.4 % % (0.3-1.7) Nucleat RBC Rel Count 0.0 % % (0.0-0.2) Absolute Neuts (auto) 4.83 10^3/uL 10^3/uL (1.70-6.50) Absolute Lymphs (auto) 0.23 10^3/uL L 10^3/uL (1.00-3.00) Absolute Monos (auto) 0.55 10^3/uL 10^3/uL (0.30-0.80) Absolute Eos (auto) 0.00 10^3/uL L 10^3/uL (0.03-0.40) Absolute Basos (auto) 0.02 10^3/uL 10^3/uL (0.02-0.10) Absolute Nucleated RBC 0.00 10^3/uL 10^3/uL (0-0.01) Immature Gran % 0.4 % % (0.0-1.1) Immature Gran # 0.02 10^3/uL 10^3/uL (0.00-0.10) RBC/WBC/PLT Morphology TNP Platelet Estimate TNP PT 16.8 SEC H SEC (12.0-15.0) INR 1.34 H (0.83-1.16) APTT 30.6 SEC SEC (23.0-38.0) VBG Lactic Acid Sodium 133 mEq/L L mEq/L (135-145) Potassium 3.7 mEq/L mEq/L (3.3-5.0) Chloride 100 mEq/L mEq/L (97-110) Carbon Dioxide 25 mEq/l mEq/l (22-31) Anion Gap 8 mEq/L mEq/L (8-16) BUN 13 mg/dL mg/dL (7-23) Creatinine 0.5 mg/dL L mg/dL (0.6-1.0) Estimated GFR > 60 Glucose 106 mg/dL H mg/dL (70-100) Calcium 8.3 mg/dL L mg/dL (8.5-10.4) Total Bilirubin 0.8 mg/dL mg/dL (0.1-1.4) Conjugated Bilirubin 0.1 mg/dL mg/dL (0.0-0.5) Unconjugated Bilirubin 0.7 mg/dL mg/dL (0.0-1.1) AST 25 IU/L IU/L (14-46) ALT 37 IU/L IU/L (9-52) Alkaline Phosphatase 78 IU/L IU/L (38-126) Total Protein 6.1 g/dL L g/dL (6.3-8.2) Albumin 3.5 g/dL g/dL (3.5-5.0) Lipase 23 IU/L IU/L (23-300) 01/03/18 09:55 WBC RBC Hgb Hct MCV MCH MCHC RDW Plt Count MPV Neut % (Auto) Lymph % (Auto) [place] % (Auto) Eos % (Auto) Baso % (Auto) Nucleat RBC Rel Count Absolute Neuts (auto) Absolute Lymphs (auto) Absolute Monos (auto) Absolute Eos (auto) Absolute Basos (auto) Absolute Nucleated RBC Immature Gran % Immature Gran # RBC/WBC/PLT Morphology Platelet Estimate PT INR APTT VBG Lactic Acid 0.8 mmol/L mmol/L (0.7-2.1) Sodium Potassium Chloride Carbon Dioxide Anion Gap BUN Creatinine Estimated GFR Glucose Calcium Total Bilirubin Conjugated Bilirubin Unconjugated Bilirubin AST ALT Alkaline Phosphatase Total Protein Albumin Lipase Medications Given: Discontinued Medications Sodium Chloride (Ns) 500 mls @ 0 mls/hr IV EDNOW ONE; Wide Open PRN Reason: Protocol Stop: 01/03/18 10:08 Last Admin: 01/03/18 10:29 Dose: 500 mls Morphine Sulfate (Morphine) 4 mg IVP EDNOW ONE Stop: 01/03/18 10:08 Last Admin: 01/03/18 10:32 Dose: 4 mg Ondansetron HCl (Zofran) 4 mg IVP EDNOW ONE Stop: 01/03/18 10:08 Last Admin: 01/03/18 10:31 Dose: 4 mg Departure - Departure Disposition: [facility] Inpatient Acute Clinical Impression: Fever Qualifiers: Fever type: unspecified Qualified Code(s): R50.9 - Fever, unspecified Pneumonia Qualifiers: Pneumonia type: due to other aerobic Gram-negative bacteria Laterality: unspecified laterality Lung location: unspecified part of lung Qualified Code(s) : J15.6 - Pneumonia due to other Gram-negative bacteria Condition: Good
[2018-01-03 10:13] LABS: PLATELET COUNT 174 10^3/uL (150-400)
[2018-01-03 10:27] LABS: INR 1.34 (0.83-1.16); PROTIME(PATIENT) 16.8 SEC (12.0-15.0)
[2018-01-03] MEDS ORDERED: AZITHROMYCIN IV 500 MG in NS 250 ML IV ONE (11:58)
[2018-01-03] MEDS ORDERED: PANTOPRAZOLE SODIUM 40 MG TAB PO PRN (14:54)
[2018-01-03] MEDS ORDERED: SENNOSIDES 1 TAB PO PRN (14:54)
[2018-01-03] MEDS ORDERED: DOCUSATE SODIUM 100 MG CAP PO PRN (14:54)
--- NOTE | 2018-01-03 16:18 | PDGENHP ---
History and Physical History and Physical: CC: Headache myalgias fever vomiting HISTORY: This patient who is an active chemotherapy patient for cancer comes in with multiple symptoms that started last night. She last got a dose of Eribulin for metastatic breast cancer 2 days ago. She also got Zometa at that time. Last night she developed fever to 100.2 degrees, nausea with a couple episodes of vomiting without blood or abdominal pain, and has developed myalgias at her shoulders, neck, calves, as well as some diffuse headache without any neurologic or visual symptoms. She does not get migraines and has not had headache syndromes such as this in the past. Because of the symptoms she comes in to the ER and is now admitted to the cancer care unit for further assessment and care. She admits to perhaps some slight photophobia but no real neck stiffness. No cough shortness of breath or other respiratory symptoms. She has had normal bowel function. No pain or swelling in joints, no skin lesions, no oral lesions. So far overall she has tolerated her ongoing chemotherapy well with minimal side effects of fatigue. She has been on the current medication for at least several months receiving a dose once a week for 2 weeks with the 3rd week off. In addition to all the above the patient admits to some chronic mild confusion. She believes that maybe this is getting worse just recently. Her corroborates that this is been a slowly progressive thing and the nursing staff here who know her have seen this gradually progressing as well. She has occasional memory issues. She has not had any focal type neurologic symptoms or seizures. 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 I have reviewed the list and ordered appropriate medicines. 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: Examination: General: alert, oriented, participates normally in conversation, relaxed Neurologic:Demonstrates mild occasional memory issues, normal speech/language, normal crop ranch hand, no focal weakness, conjugate gaze with normal eye motion No neck stiffness or abnormal findings on leg raise testing Affect is appropriate Skin: warm, dry, good color, no rash HEENT: normal Neck: no mass or jvd Resps: relaxed Lungs: clear breath sounds Heart: regular, no murmur Abdomen: soft, nondistended, nontender, +BS, no mass Upper Extremities: normal Lower Extremities: no edema, warm No Bleeding or bruising IV site: looks normal LABORATORY DATA: White blood cell count 5000 with normal differential good neutrophil count Stable hemoglobin at 11 normal platelets Sodium at 1:33 a.m., normal electrolytes otherwise, normal renal function, normal liver enzymes and bilirubin RADIOLOGY STUDIES: Chest x-rays done in the ER and I reviewed the images, there are no infiltrates effusions masses or other acute changes. She has some mild scratchy scar-like density in the upper right hilum that is improved from her chest x-ray in September where that was the most severely affected area of her lungs with pneumonia at that time. Head CT is done in the ER, I have also reviewed this noncontrast study images. There are multiple previously known metastatic lesions of the calvarium, some lytic and some sclerotic at this time that do not appear likely enlarging compared to previous studies. There is no acute or otherwise significant abnormality of the brain visible on this noncontrast study. ASSESSMENT: * acute headache, myalgias, nausea vomiting with low-grade fever at home but afebrile here * the above syndrome presents now 2 days after dose of Eribulin and zometa * known metastatic breast cancer with primarily skeletal disease of the skull spine and extremities * chronic pain of malignancy on continuous prescribed pain medicines * known anemia of malignancy, stable * recent pulmonary embolism, stable on anticoagulant * recent pneumonia without any recurrent symptoms of respiratory illness NOTE: In the emergency room the patient was given a diagnosis of pneumonia and started on antibiotics. At this time without cough chest pain shortness of breath high white blood cell count fever or new abnormalities on chest x-ray I do not find any evidence that there is pneumonia and I will not treat her for pneumonia unless some sign of that illness presents. I believe that this is most likely a viral syndrome she is complaining of. Her examination does not make me think she has meningitis but we do see that at this time of year particularly with mosquitos about. [place] virus could be a possibility. A number of other viruses could present with these symptoms, including gastroenteritis illnesses. The symptoms she is having could potentially be related to her chemotherapy and Zometa, however I would not expect fever with that type syndrome. At this point as there is no organ dysfunction and her hemodynamics and respiratory status are all stable and she has good white blood cell count, will treat her with hydration, symptomatic conservative care, and observe her progress carefully. PLANS: * Admission to hospital in the cancer care unit * I have asked Dr. Linnea Gallegos from Oncology to see her * IV hydration * Pain and nausea management, treat other symptoms as indicated * Continue her usual home medicines * Follow closely for ongoing fevers, or any other specific signs to indicate a specific organism or source of fever * Blood cultures were done in the ER will follow those closely I have reviewed the patient's case in detail with Dr. Linnea Gallegos I have reviewed the patient's past medical records as part of this assessment, including outpatient clinic and hospital records from our system
[2018-01-03] MEDS: diphenhydrAMINE 50 MG CAP PO SCH ×2 (16:29→20:27)
[2018-01-03] MEDS: VENLAFAXINE XR 150 MG CAP PO SCH (16:30)
[2018-01-03] MEDS ORDERED: ZOLPIDEM TARTRATE 5 MG TAB PO PRN (16:57)
[2018-01-03] MEDS ORDERED: ACETAMINOPHEN 325 MG TAB PO PRN (16:57)
[2018-01-03] MEDS ORDERED: ONDANSETRON 4 MG/2 ML VIAL IVP PRN (16:57)
[2018-01-03] MEDS: DIAZEPAM 5 MG TAB PO PRN (19:43)
[2018-01-03] MEDS: morphINE SR 15 MG TAB PO SCH (19:43)
[2018-01-03] MEDS: GABAPENTIN 300 MG CAP PO SCH (20:27)
[2018-01-03] MEDS: HYDROmorphONE/DILAUDID 2 MG TAB PO PRN (21:17)
[2018-01-04] MEDS: DIAZEPAM 5 MG TAB PO PRN ×2 (08:27→21:11)
[2018-01-04] MEDS: NS 1,000 ML IV SCH ×2 (08:27→21:19)
[2018-01-04] MEDS: morphINE SR 15 MG TAB PO SCH ×2 (08:28→21:11)
[2018-01-04] MEDS: VENLAFAXINE XR 150 MG CAP PO SCH (08:28)
[2018-01-04] MEDS: CHOLECALCIFEROL VIT D3 1,000 UNITS TAB PO SCH (08:28)
[2018-01-04] MEDS: GABAPENTIN 300 MG CAP PO SCH ×3 (08:28→21:12)
[2018-01-04] MEDS: HYDROmorphONE/DILAUDID 2 MG TAB PO PRN ×3 (08:29→21:18)
[2018-01-04] MEDS: RIVAROXABAN 20 MG TAB PO SCH (08:29)
--- NOTE | 2018-01-04 09:15 | ASMTCMCOM ---
[facility] Note CM Note Notes: Pt admitted w/possible pnuemonia vs viral syndrome, she is currently receiving chemo therapy for metastatic breast cancer. She lives at home with her Darius. Therapies to [facility] olivarez w/f. DC Plan: TBD Date Signed: 01/04/2018 09:14 AM Electronically Signed By:Shaniqua Downey RN
--- NOTE | 2018-01-04 09:34 | PDMN ---
Medical Necessity Medical necessity: [facility] General Admission Criteria and PGPM Pain Management , 63 y/o Pt with know metastatic breast CA (mets to spine, skull & extremities ) presents with severe H/A, general malaise s/p chemo 2 days ago. Hx recent PE and pneumonia. Anemia, hyponatremia and hypocalcemia noted. Some hypotension noted. IV fluids, IV opioid and IV antiemetics ongoing for s/sx management. BC and [place] nile virus pending. Oncology consult pending. Anticipate>2MN for ongoing monitoring, dx testing and treatment.
--- NOTE | 2018-01-04 11:40 | HOSPPROG ---
Hospitalist Progress Note Assessment/Plan: DIAGNOSES: * acute headache, myalgias, nausea vomiting with low-grade fever at home but afebrile here * The differential diagnosis includes chemotherapy-induced symptoms, progressive tumor of the skull with invasion of dura, new mets to brain, viral meningitis * known metastatic breast cancer with primarily skeletal disease of the skull spine and extremities * chronic pain of malignancy on continuous prescribed pain medicines * known anemia of malignancy, stable * recent pulmonary embolism, stable on anticoagulant * recent pneumonia without any recurrent symptoms of respiratory illness Today her pain is worse. She continues to complain of worsening photophobia, as well as some subjective neck stiffness without stiffness on exam. At this point further imaging for assessment of the cause of her symptoms is warranted with MRI scan, and would consider possible LP if MRI is unrevealing. Will need to continue IV hydration as she was not taking in adequate oral fluid, and needs increased pain medicine. Depending on the cause of this headache syndrome she may get more benefit from increasing either her narcotic or her Neurontin. PLANS: * MRI of brain with contrast today * Increased pain medication and follow for response * Continue IV fluids * Continue antiemetics * Recheck electrolytes in the morning with her vomiting and GI losses I reviewed the above in detail with patient and her at bedside as well as with Dr. Linnea Gallegos SUBJECTIVE: Ongoing severe headache pain, diffuse, with worsening photophobia, and ongoing feeling of stiffness in the neck Still with some myalgias round the neck shoulders but less than the calf Still with nausea requiring antiemetics here, getting little fluids and so far No fever symptoms Has had 6 bowel movements in last 24 hr though the stools are all normally formed at this point; no abdominal pain associated with this OBJECTIVE Vitals reviewed: Overall stable without fever Product Engineer, my review: Exam: alert oriented, looks uncomfortable, lying in bed with ice packs on her forehead and behind her neck Appears to be at her current baseline in terms of memory/mild confusion skin warm dry color ok resps not labored lungs clear BSs heart regular abd soft nondistended nontender, bowel sounds present limbs warm, no edema iv site ok Laboratory data: 's now serologies pending Objective: Vital Signs Temp Pulse Resp BP Pulse Ox 36.9 C 75 16 104/75 90 L 01/04/18 08:38 01/04/18 08:38 01/04/18 08:38 01/04/18 08:38 01/04/18 08:38 01/03/18 01/04/18 01/05/18 06:59 06:59 06:59 Intake Total 2385 Output Total 2200 Balance 185 PT 16.8 SEC (12.0-15.0) H 01/03/18 09:55 INR 1.34 (0.83-1.16) H 01/03/18 09:55 - Time Spent With Patient Time Spent with Patient: greater than 35 minutes Time Spent with Patient: Greater than 35 minutes spent on this patients care, greater than 50% of time spent counseling, educating, and coordinating care regarding the above mentioned plan. ICD10 Worksheet Patient Problems: Problems Problem Status Onset Fever Acute Pneumonia Acute Anemia Acute Chemotherapy adverse reaction Acute Hip pain Acute Hypoxia Acute Metastatic breast cancer Acute Pulmonary embolism Acute
--- NOTE | 2018-01-04 12:50 | GCON ---
[f rep st] CONSULTATION NEW PATIENT CONSULTATION REFERRING PHYSICIAN: Seymour Limon MD REASON FOR CONSULTATION: Patient known to my partner, Dr. Analisa Terrazas, being treated for metastatic br east cancer, admitted for headache, nausea, and mild diarrhea. HISTORY OF PRESENT ILLNESS: The patient is a very pleasant 63-year-old woman with a history of breas t cancer that dates back to April of 2011. Her initial stage was a pT2 pN3a M0. She was a stage IIIC at diagnosis with an invasive ductal carcinoma, histologic grade 2, looks like initially ER/DE s tatus negative. She had BRCA gene testing, which showed no deleterious mutation or germ line mutatio n. Patient underwent a modified radical mastectomy with axillary lymph node dissection April 2011 . A total number of lymph nodes removed, 20 and 18 were positive. It looks like she had adjuvant th erapy with doxorubicin, cyclophosphamide, and paclitaxel and did well for several years after. About 3 years later, she had a recurrence. It does look as though this was initially hormone positive. T he notes are a bit confusing, but her records indicate she receive fulvestrant from May 2015, rough September 2016, and the last year, it was given it was given with Ibrance. Unfortunately, she prog ressed on this regimen. She was then started on paclitaxel with or without Alisertib on clinical tri al, but progressed on this second-line therapy. She then received capecitabine and most recently has been on eribulin. I will note she had a liver biopsy in July 2017, that shows ER positive, DE negative, and HER-[address] Terrazas also sent next generation sequencing demonstrating BRCA somatic mutation. Patient was last seen 01/01/2018. She received cycle 7 day 1 of eribulin for her metastatic disease. At that visit, she had continued to complain of confusion, which had been going on for the last fri. Previous brain MRI in October 2016, had shown osseous metastatic disease to her calvarium. The most recent MRI brain June 2017, showed metastatic osseous disease and in the right parietal calvarial , which extended through the inner and outer right parietal dural surface. At this last visit in the clinic, it was planned to repeat her MRI, as well as CT chest, abdomen, pelvis as she had a mixed re sponse on her October 2017 scan. Patient has also been on Zometa for her osseous metastatic disease and she takes Xarelto for pulmonary embolism diagnosed several years ago. Yesterday, she came in complaining of severe headache, associated with nausea and some very mild loos e stools. She also has had poor p.o. intake times 2-3 days. REVIEW OF SYSTEMS: As per HPI. Otherwise, patient reports photophobia, some mild neck stiffness. S he denies chest pain or palpitations. She denies skin rash. 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 FAMILY HISTORY: Noncontributory at this time. SOCIAL HISTORY: Lives with her . Not working at this time. No tobacco use. PHYSICAL EXAMINATION: VITAL SIGNS: Today show blood pressure 104/75, pulse of 75, respiration rate 17, saturating 90% on room air, temp 36.9. GENERAL: Very fatigued appearing, somewhat chronically i ll 63-year-old woman. HEENT: Alopecia. Difficult to get an eye exam due to extreme photophobia. O ropharynx is clear without lesions or thrush. HEART: Regular rate and rhythm. LUNGS: Clear anteri kang. ABDOMEN: Soft, nontender. No enlarged liver or spleen. LOWER EXTREMITIES: No edema. NEURO LOGIC: Severe headache and focal photophobia. Moving all extremities and following commands. LABORATORY DATA: CBC yesterday shows white blood cell count of 5.6, hemoglobin 11.2, platelet count of 174. I will note her MCV is now 80. INR 1.34. Lactic acid 0.8. Sodium 133, BUN 13, creatinine 0.5, calcium 8.3. Total bilirubin 0.8, AST 25, ALT 37. Urinalysis was clear. ASSESSMENT/PLAN: A 63-year-old woman with the above-mentioned past medical history, namely metastati c breast cancer to liver and bone. Most recent pathology from July 2017, shows this to be ER pos itive, DE negative, HER-2 negative, metastasis in the liver. In addition, she was also discovered to have somatic BRCA mutation on next generation sequencing. Patient was admitted with primarily heada ana luisa, associated with nausea, poor p.o. intake and mild diarrhea. 1. Headache. Based on review of her outpatient chart, there was some ongoing confusion and concern that she could be progressing in the brain. She had osseous metastasis noted on prior MRI with possi ble extension to the dura. It is of course I would be concerned about new diagnosis of leptomeningea l disease. I do plan an MRI brain inpatient and likely will need a lumbar puncture to rule out malig nant cells. Certainly, this could just be a migraine from ongoing treatment, but would rule out hu gnancy prior. Continue pain control as needed. 2. Nausea, likely associated with headache and her photophobia. p.r.n. antiemetics. 3. Diarrhea probably due to the fact she has had poor p.o. intake and mostly taking liquids only. N o other infectious symptoms. Will monitor. 4. Breast cancer. She has been having a mixed response to reveal in her scans in October 2017 showed a mixed response with decreased hepatic metastases, increased osseous metastases, increasing compressio n fracture at L1-L2, and stable canal stenosis at L2. Certainly plan on repeating her CT scans soon as an outpatient, which can be done while she is here if indicated. Options for further therapy woul d include a PARP inhibitor or more attempted endocrine blockade, such as everolimus and exemestane. Would continue Zometa. 5. History of pulmonary embolus, currently on Xarelto, which will need to be held prior to lumbar pu ncture. 6. Pain control. Continue current regimen. More than 40 minutes was spent, more than 50% of time counseling, coordinating care. Her case was di scussed with Dr. Limon. /[id number]/MODL
[2018-01-04] MEDS ORDERED: GADOBUTROL 10 ML VIAL IVP ONE (15:03)
[2018-01-04] MEDS ORDERED: *PHM DO NOT USE-DEXAMETHASONE 0.2 MG/ML IV PED/NEWBORN SYR IV SCH (18:10)
[2018-01-04] MEDS: DEXAMETHASONE 4 MG/ML VIAL IVP SCH (18:34)
[2018-01-04] MEDS: FAMOTIDINE 20 MG TAB PO SCH (21:11)
[2018-01-04] MEDS: diphenhydrAMINE 50 MG CAP PO SCH (21:11)
[2018-01-05] MEDS: DEXAMETHASONE 4 MG/ML VIAL IVP SCH ×2 (02:04→10:02)
[2018-01-05 05:32] LABS: PLATELET COUNT 173 10^3/uL (150-400)
[2018-01-05] MEDS: morphINE SR 15 MG TAB PO SCH ×2 (09:48→20:33)
[2018-01-05] MEDS: RIVAROXABAN 20 MG TAB PO SCH (09:48)
[2018-01-05] MEDS: CHOLECALCIFEROL VIT D3 1,000 UNITS TAB PO SCH (09:49)
[2018-01-05] MEDS: FAMOTIDINE 20 MG TAB PO SCH ×2 (09:49→20:33)
[2018-01-05] MEDS: GABAPENTIN 300 MG CAP PO SCH ×3 (09:49→20:35)
[2018-01-05] MEDS: VENLAFAXINE XR 150 MG CAP PO SCH (09:49)
[2018-01-05] MEDS: NS 1,000 ML IV SCH (11:06)
[2018-01-05] MEDS: DIAZEPAM 5 MG TAB PO PRN (15:58)
--- NOTE | 2018-01-05 17:12 | SOAPPROG ---
SOAP Progress Note Assessment/Plan: A/P: * MÁRQUEZ: dural extension of skull met. Significant improvement on steroids. Rec consultation for SRS with Dr. Domínguez. No meningeal enhancement on MRI. Discussed possible LP. Suspect MÁRQUEZ due to met. - reduce Dex to 4 mg BID - eventual rad onc consult * Metastatic breast cancer: ER+. On Eribulin, mixed response on 10/[address] while she is here. * h/o PE: Xarelto. 01/05/18 17:09 Subjective: Significantly better after starting steroids. No MÁRQUEZ currently. No vision changes, speech issues, cranial n. sxs. O: VS reviewed. Gen: NAD. Lungs: breathing comfortably. Neuro: nonfocal. Laboratory Tests 01/05/18 01/05/18 05:20 05:20 WBC 4.71 Hgb 11.0 L Plt Count 173 Sodium 138 Potassium 3.9 Chloride 108 Carbon Dioxide 24 Anion Gap 6 L BUN 8 Creatinine 0.4 L Objective: Vital Signs Temp Pulse Resp BP Pulse Ox 36.8 C 74 16 133/83 H 96 01/05/18 15:48 01/05/18 15:48 01/05/18 15:48 01/05/18 15:48 01/05/18 15:48 Laboratory Results 01/05/18 05:20 01/05/18 05:20 01/04/18 01/05/18 01/06/18 05:59 05:59 05:59 Intake Total 2385 2500 Output Total 2200 Balance 185 2500 PT 16.8 SEC (12.0-15.0) H 01/03/18 09:55 INR 1.34 (0.83-1.16) H 01/03/18 09:55 ICD10 Worksheet Patient Problems: Problems Problem Status Onset Fever Acute Pneumonia Acute Anemia Acute Chemotherapy adverse reaction Acute Hip pain Acute Hypoxia Acute Metastatic breast cancer Acute Pulmonary embolism Acute
--- NOTE | 2018-01-05 18:14 | HOSPPROG ---
Hospitalist Progress Note Assessment/Plan: * Dural metastasis -headache improved on Decadron -discharge on steroid - outpatient Rad Onc consult * Metastatic breast cancer -repeat CT per Dr. Calvo * PE -Xarelto * Continuous narcotic dependency -MS contin Subjective: Better Objective: Vital Signs Temp Pulse Resp BP Pulse Ox 36.8 C 74 16 133/83 H 96 01/05/18 15:48 01/05/18 15:48 01/05/18 15:48 01/05/18 15:48 01/05/18 15:48 Laboratory Results 01/05/18 05:20 01/05/18 05:20 01/04/18 01/05/18 01/06/18 05:59 05:59 05:59 Intake Total 2385 2500 300 Output Total 2200 350 Balance 185 2500 -50 PT 16.8 SEC (12.0-15.0) H 01/03/18 09:55 INR 1.34 (0.83-1.16) H 01/03/18 09:55 d/w DR. calvo - discharge soon on steroids MRI brain - dural met - Physical Exam Constitutional: no apparent distress, appears nourished, not in pain Cardiovascular: regular rate and rhythym, no murmur, rub, or gallop Respiratory: no respiratory distress, no rales or rhonchi, clear to auscultation Gastrointestinal: normoactive bowel sounds, soft, non-tender abdomen, no palpable masses Skin: no rashes or abrasions, no fluctuance, no induration Neurologic: AAOx3, sensation intact bilaterally Psychiatric: interacting appropriately, not anxious, not encephalopathic, thought process linear ICD10 Worksheet Patient Problems: Problems Problem Status Onset Fever Acute Pneumonia Acute Anemia Acute Chemotherapy adverse reaction Acute Hip pain Acute Hypoxia Acute Metastatic breast cancer Acute Pulmonary embolism Acute
[2018-01-05] MEDS ORDERED: IOPAMIDOL (ISOVUE-300) 100 ML BTL ONE (18:49)
[2018-01-05 20:21] LABS: WEST NILE VIRUS IGG Negative (Negative); WEST NILE VIRUS IGM Negative (Negative)
[2018-01-05] MEDS: DEXAMETHASONE 4 MG TAB PO SCH (20:33)
[2018-01-05] MEDS: diphenhydrAMINE 50 MG CAP PO SCH (20:33)
[2018-01-06] MEDS: VENLAFAXINE XR 150 MG CAP PO SCH (10:28)
[2018-01-06] MEDS: morphINE SR 15 MG TAB PO SCH (10:28)
[2018-01-06] MEDS: GABAPENTIN 300 MG CAP PO SCH ×2 (10:28→15:33)
[2018-01-06] MEDS: FAMOTIDINE 20 MG TAB PO SCH (10:28)
[2018-01-06] MEDS: DEXAMETHASONE 4 MG TAB PO SCH (10:29)
[2018-01-06] MEDS: RIVAROXABAN 20 MG TAB PO SCH (10:29)
[2018-01-06] MEDS: CHOLECALCIFEROL VIT D3 1,000 UNITS TAB PO SCH (10:29)
--- NOTE | 2018-01-06 14:10 | PDIAF ---
- Diagnosis Diagnosis: Dural met Code Status: Do Not Resuscitate - Medication Management Discharge Medications: Medications to Continue on Transfer morphINE SR [Ms Contin/Oramorph 15 mg (*)] 15 mg PO BID 07/29/17 [Last Taken ] Diazepam [Valium 5 MG (*)] 5 mg PO Q6-8PRN PRN 10/04/17 [Last Taken 01/02/18] HYDROmorphone HCL [Dilaudid 2 mg (*)] 1 mg PO Q3-4PRN PRN 10/04/17 [Last Taken 01/02/18] Pantoprazole Sodium [Protonix 40mg (*)] 40 mg PO DAILY PRN 10/04/17 [Last Taken 12/31/17] Sennosides [Senna Lax] 8.6 mg PO DAILY PRN 10/04/17 [Last Taken 12/31/17] Acetaminophen [Acetaminophen ER] 1 - 2 tab PO PRN PRN 01/03/18 [Last Taken 01/02] Cholecalciferol (Vitamin D3) [Vitamin D3] 1,000 unit PO DAILY 01/03/18 [Last Taken 12/24/17] Docusate Sodium [Dulcolax Stool Softener] 1 - 3 cap PO DAILY PRN 01/03/18 [Last Taken 12/31/17] Gabapentin [Neurontin 300 MG (*)] 300 mg PO BID 01/03/18 [Last Taken 01/02/18] Rivaroxaban [Xarelto] 20 mg PO DAILY 01/03/18 [Last Taken 01/03/18] Venlafaxine HCl [Venlafaxine HCl ER] 150 mg PO DAILY 01/03/18 [Last Taken ] diphenhydrAMINE HCL [Unisom] 50 mg PO HS 01/03/18 [Last Taken 01/02/18] Dexamethasone [Decadron 4 MG (*)] 4 mg PO BID #60 tab 01/06/18 [Last Taken Unknown] Discharge Medications: Refer to the Discharge Home Medication list for PRN reason. - Orders Services needed: Home Care, Physical Therapy, Occupational Therapy, Speech Language Pathologist (cognition) Home Care Face to Face: I certify that this patient was under my care and that I had the required [id number] encounter meeting the encounter requirements on the discharge day. My findings support the fact that the patient is homebound as defined in Home Care Face to Face Continued: CMS Chapter 7 Medicare Benefits Manual 30.1.1 , The condition of the patient is such that there exists a normal inability to leave home and consequently, leaving home would require a considerable and taxing effort. Isolation Type: None Diet Recommendation: no restrictions on diet Additional Instructions: 13/01 supervision until confusion resolved - Follow Up Care Current Providers and Referrals: Dinesh Terrazas MD [Medical Doctor] - As per Instructions Lexi Domínguez MD [Medical Doctor] - (radiation oncology)
--- NOTE | 2018-01-06 15:15 | ASMTLACE ---
LACE Length of stay for Answers: 3 days current admission Acuity / Level of Answers: Yes Care: Did the patient have an inpatient admission? Comorbidities - select Answers: Other Notes: Breast CA all that apply # of Emergency department Answers: 1-2 visits in the last 6 months Score: 8 Date Signed: 01/06/2018 03:14 PM Electronically Signed By:Vashti Dent RN
--- NOTE | 2018-01-06 15:18 | ASMTCMCOM ---
CM Note CM Note Notes: Chart reviewed. Patient medically cleared for discharge to home. She lives with her and daughter. No clinical needs for HHC at this time. CM available should needs arise. Plan: Home with family supervision. Date Signed: 01/06/2018 03:16 PM Electronically Signed By:Vashti Dent RN
[2018-01-06 15:27] VITALS: BP 130/88
[2018-01-06] MEDS: DIAZEPAM 5 MG TAB PO PRN (15:33)
[2018-01-06] MEDS: HYDROmorphONE/DILAUDID 2 MG TAB PO PRN (16:03)
--- NOTE | 2018-01-06 17:04 | ASMTCMCOM ---
CM Note CM Note Notes: Please disregard previous note. Patient requires home speech, PT and OT. Referral to [facility]. Patient has [employer] insurance. Attempted to call after hours RN but no voices messaging set up, unable to leave her a message. Per [facility] machine operators no other number available will f/u tomorrow. Plan: Home with [facility]. Date Signed: 01/06/2018 04:53 PM Electronically Signed By:Vashti Dent RN
--- NOTE | 2018-01-06 18:29 | GDS ---
[f rep st] DISCHARGE SUMMARY DISCHARGE DIAGNOSES: 1. Metastatic breast cancer. 2. Dural metastases. 3. Pulmonary embolus. 4. Continuous narcotic dependency. HISTORY: The patient is a 63-year-old female with a history of metastatic breast cancer. She presen cristy with increased headache. An MRI showed one of her skull metastases has now extended to the dura. She was started empirically on Decadron and has improved. Plan is to discharge on oral steroids, a nd she will follow up with Dr. Domínguez, Radiation Oncology, for outpatient treatment. DISCHARGE MEDICATIONS: Please see computerized record for full detailed list. New medication: Deca dron 4 mg p.o. b.i.d. ADDITIONAL DISCHARGE INSTRUCTIONS: 1. The patient has mild confusion today, and we recommend 24/7 supervision until this confusion has resolved. Home health, PT, OT, VNS, and speech therapy for cognition have been arranged. 2. Follow up with Dr. Lexi Domínguez of Radiation Oncology, as well as Dr. Dinesh Terrzaas, her usual onc ologist. 3. Greater than 30 minutes' time was spent arranging this discharge. Patient was seen and examined by abbie sosa on the day of discharge. /[id number]/MODL
== END 2018-01-06 16:30 | disposition home health service (06) | DRG 55 ==
LOC: OBSVTOIN 11:50 → F1N 12:05
PROVIDERS: ADMIT Internal Medicine; ATTEND Internal Medicine
DX: C79.49 Secondary malignant neoplasm of other parts of nervous system (principal); C79.51 Secondary malignant neoplasm of bone; G89.3 Neoplasm related pain (acute) (chronic); Z79.891 Long term (current) use of opiate analgesic; Z79.01 Long term (current) use of anticoagulants; Z90.11 Acquired absence of right breast and nipple; Z85.3 Personal history of malignant neoplasm of breast; Z86.711 Personal history of pulmonary embolism; Z66 Do not resuscitate
CPT/HCPCS: 96374; 97162-GP; 97165-GO; 97530-GP; 97535-GO; A9585; J0456; J1100; J1642; J2270; J2405; Q9967

== ENCOUNTER 2018-06-06 22:02 | Inpatient (IN) | payer OTHER ==
--- NOTE | 2018-06-06 22:11 | EDPHY ---
H & P Stated Complaint: generalized pain Time Seen by Provider: 06/06/18 22:11 HPI/ROS: HPI CHIEF COMPLAINT: Diffuse pain. Mainly abdominal HISTORY OF PRESENT ILLNESS: 63-year-old female, metastatic breast cancer, presents emergency room with abdominal pain. Patient states that she is mainly right-sided abdominal pain this started earlier this evening she is not sure exactly what time. Somewhat of a poor historian. She has nausea associated with this but no vomiting. She states she tried to take a Dulcolax which made her abdominal pain worse. She is unclear if she is constipated or something more is going on. Denies chest pain or shortness of breath. ONCOLOGY DR. SWIFT Past Medical History: Stage IV breast cancer, PE, pneumonia, narcotic dependency Past Surgical History: Right breast mastectomy. Right chest port. Social History: Denies drugs alcohol tobacco. Family History: Noncontributory ROS REVIEW OF SYSTEMS: Somewhat of a poor historian. Exam Constitutional nontoxic, triage nursing summary reviewed, vital signs reviewed , awake/alert. Eyes normal conjunctivae and sclera, EOMI, PERRLA. HENT normal inspection, atraumatic, moist mucus membranes, no epistaxis, neck supple/ no meningismus, no raccoon eyes. Respiratory clear to auscultation bilaterally, normal breath sounds, no respiratory distress, no wheezing. Cardiovascular rate normal, regular rhythm, no murmur, no edema, distal pulses normal. Gastrointestinal mild tender palpation right-sided abdomen,, no rebound, no guarding, normal bowel sounds, no distension, no pulsatile mass. Genitourinary no CVA tenderness. Musculoskeletal no midline vertebral tenderness, full range of motion, no calf swelling, no tenderness of extremities, no meningismus, good pulses, neurovascularly intact. Skin pink, warm, & dry, no rash, skin atraumatic. Neurologic awake, alert and oriented x 3, AAOx3, moves all 4 extremities equally, motor intact, sensory intact, CN II-XII intact, normal cerebellar, normal vision, normal speech. Psychiatric normal mood/affect. Heme/Lymph/Immune no lymphadenopathy. Differential Diagnosis: Differential diagnosis includes but is not limited to and in no particular order: Bowel obstruction, appendicitis, gallbladder disease, diverticulitis, colitis, enteritis, perforated viscus, gastritis, GERD , esophagitis, urinary tract infection, pyelonephritis, kidney stones Medical Decision Making: Plan for this patient IV establishment IV fluid bolus , IV Dilaudid 1 mg for pain control IV Zofran 4 mg for nausea, basic blood work , lactic acid, CT scan abdomen pelvis with IV contrast. Re-evaluation: CT scan abdomen pelvis with IV contrast for abdominal pain called to me by Dr. Dion Gaona. Shows extensive metastatic disease. Pretty much unchanged from previous CT scan. No acute inflammatory process seen on CT scan. It is noted the patient was slightly hypoxic when she arrived here, does not typically wear oxygen. She does have an elevated white blood cell count. I have ordered blood cultures. Lactic acid. IV Levaquin ordered. Consult the hospitalist service for admission for pain control for abdominal pain metastatic disease. Dr. Pedersen agrees to admit Additionally she was somewhat hypoxic when she arrived here. 86 91% on room air. Atelectasis seen on x-ray and CT Given the high white count, hypoxic ordered her IV Levaquin. Admit for pain control of the abdominal pain. Source: Patient - Medical/Surgical History Hx Asthma: No Hx Chronic Respiratory Disease: No Hx Diabetes: No Hx Cardiac Disease: No Hx Renal Disease: No Hx Cirrhosis: No Hx Alcoholism: No Hx HIV/AIDS: No Hx Splenectomy or Spleen Trauma: No Other PMH: Breast CA mets to liver bone brain, mastectomy - Social History Smoking Status: Never smoked Constitutional: Initial Vital Signs Temperature (C) 37.6 C 06/06/18 22:03 Heart Rate 96 06/06/18 22:03 Respiratory Rate 20 06/06/18 22:03 Blood Pressure 124/87 H 06/06/18 22:03 O2 Sat (%) 91 L 06/06/18 22:03 O2 Delivery Mode Nasal Cannula O2 (L/minute) 2 Allergies/Adverse Reactions: oxycodone Allergy (Severe, Verified 01/03/18 09:17) Itching Home Medications: Medication Instructions Recorded morphINE SR [Ms Contin/Oramorph 15 15 mg PO BID 07/29/17 mg (*)] HYDROmorphone HCL [Dilaudid 2 mg 1 mg PO Q3-4PRN PRN 10/04/17 (*)] Sennosides [Senna Lax] 8.6 mg PO DAILY PRN 10/04/17 Acetaminophen [Acetaminophen ER] 1 - 2 tab PO PRN PRN 01/03/18 Cholecalciferol (Vitamin D3) 1,000 unit PO DAILY 01/03/18 [Vitamin D3] Docusate Sodium [Dulcolax Stool 1 - 3 cap PO DAILY PRN 01/03/18 Softener] Gabapentin [Neurontin 300 MG (*)] 300 mg PO BID 01/03/18 Rivaroxaban [Xarelto] 20 mg PO DAILY 01/03/18 Venlafaxine HCl [Venlafaxine HCl 150 mg PO DAILY 01/03/18 ER] diphenhydrAMINE HCL [Unisom] 50 mg PO HS 01/03/18 LORazepam [Ativan (*)] 1 mg PO TID PRN 06/07/18 Methylphenidate HCl [Ritalin 5mg 5 mg PO BID 06/07/18 (*)] Omeprazole 20 mg PO DAILY PRN 06/07/18 Medical Decision Making - Data Points Laboratory Results: Laboratory Results 06/07/18 05:15 06/07/18 05:15 Medications Given: Acetaminophen (Tylenol) 650 mg PO Q6HRS PRN PRN Reason: Pain, Mild/Fever, Can Take PO Stop: 12/04/18 11:54 Last Admin: 06/07/18 12:05 Dose: 650 mg Diphenhydramine HCl (Benadryl) 25 - 50 mg PO Q6HRS PRN PRN Reason: Itching Stop: 12/04/18 03:26 Last Admin: 06/07/18 03:53 Dose: 25 mg Gabapentin (Neurontin) 300 mg PO TID [facility] Stop: 12/04/18 08:59 Last Admin: 06/07/18 20:15 Dose: 300 mg Sodium Chloride (Ns) 1,000 mls @ 100 mls/hr IV CONT JUVENTINO Stop: 12/04/18 00:59 Last Admin: 06/07/18 12:53 Dose: 1,000 mls Lactulose (Cephulac) 20 gm PO TID PRN; Protocol PRN Reason: Constipation Stop: 12/04/18 02:54 Last Admin: 06/07/18 13:05 Dose: 20 gm Methylphenidate HCl (Ritalin) 5 mg PO BID [facility] Stop: 12/04/18 20:59 Last Admin: 06/07/18 20:16 Dose: 5 mg Morphine Sulfate (Ms Contin/Oramorph) 15 mg PO BID [facility] Stop: 06/17/18 08:59 Last Admin: 06/07/18 20:15 Dose: 15 mg Polyethylene Glycol (Miralax) 17 gm PO BID JUVENTINO PRN Reason: Protocol Stop: 12/04/18 20:59 Last Admin: 06/07/18 20:17 Dose: 17 gm Rivaroxaban (Xarelto) 20 mg PO DAILY [facility] Stop: 12/04/18 08:59 Last Admin: 06/07/18 09:34 Dose: 20 mg Senna/Docusate Sodium (Senokot-S) 1 - 2 tab PO BID JUVENTINO PRN Reason: Protocol Stop: 12/04/18 08:59 Last Admin: 06/07/18 20:16 Dose: 2 tab Venlafaxine HCl (Effexor Xr) 150 mg PO DAILY [facility] Stop: 12/04/18 12:14 Last Admin: 06/07/18 13:04 Dose: 150 mg Discontinued Medications Gabapentin (Neurontin) 300 mg PO EDNOW ONE Stop: 06/07/18 00:34 Last Admin: 06/07/18 00:41 Dose: 300 mg Hydromorphone HCl (Dilaudid) 1 mg IVP EDNOW ONE Stop: 06/06/18 22:17 Last Admin: 06/06/18 22:34 Dose: 1 mg Sodium Chloride (Ns) 1,000 mls @ 0 mls/hr IV EDNOW ONE; Wide Open PRN Reason: Protocol Stop: 06/06/18 22:17 Last Admin: 06/06/18 22:33 Dose: 1,000 mls Levofloxacin/Dextrose (Levaquin 750 Mg (Premix)) 150 mls @ 100 mls/hr IV EDNOW ONE PRN Reason: Protocol Stop: 06/07/18 01:18 Last Admin: 06/07/18 00:19 Dose: 150 mls Lorazepam (Ativan) 0.5 - 1 mg PO Q6HRS PRN PRN Reason: Anxiety, Able to Take PO Stop: 12/04/18 00:50 Last Admin: 06/07/18 02:40 Dose: 1 mg Morphine Sulfate (Ms Contin/Oramorph) 15 mg PO EDNOW ONE Stop: 06/07/18 00:36 Last Admin: 06/07/18 00:56 Dose: 15 mg Ondansetron HCl (Zofran) 4 mg IVP EDNOW ONE Stop: 06/06/18 22:17 Last Admin: 06/06/18 22:35 Dose: 4 mg Polyethylene Glycol (Miralax) 17 gm PO DAILY PRN; Protocol PRN Reason: Constipation, patient prefers Stop: 12/04/18 02:54 Last Admin: 06/07/18 03:53 Dose: 17 gm Point of Care Test Results: Chemistry 06/06/18 22:35 POC Troponin I 0.00 ng/mL ng/mL (0.00-0.08) Departure - Departure Disposition: [facility] Inpatient Acute Clinical Impression: Metastatic breast cancer Abdominal pain Qualifiers: Abdominal location: generalized Qualified Code(s): R10.84 - Generalized abdominal pain Condition: Fair
[2018-06-06] MEDS ORDERED: HYDROmorphONE/DILAUDID 2 MG/ML INJ IVP ONE (22:16)
[2018-06-06] MEDS ORDERED: ONDANSETRON 4 MG/2 ML VIAL IVP ONE (22:16)
[2018-06-06] MEDS ORDERED: NS 1,000 ML IV ONE (22:16)
[2018-06-06] MEDS ORDERED: IOPAMIDOL (ISOVUE-300) 100 ML BTL ONE (22:23)
[2018-06-06 22:41] LABS: PLATELET COUNT 296 10^3/uL (150-400)
[2018-06-06 22:49] LABS: INR 1.28 (0.83-1.16); PROTIME(PATIENT) 16.2 SEC (12.0-15.0)
[2018-06-07] MEDS ORDERED: GABAPENTIN 300 MG CAP PO ONE (00:33)
[2018-06-07] MEDS ORDERED: morphINE SR 15 MG TAB PO ONE (00:35)
[2018-06-07] MEDS ORDERED: LORazepam 0.5 MG TAB PO PRN (00:51)
[2018-06-07] MEDS ORDERED: ONDANSETRON DISINTEGRATING 4 MG TAB PO PRN (00:51)
[2018-06-07] MEDS ORDERED: ONDANSETRON 4 MG/2 ML VIAL IVP PRN (00:51)
[2018-06-07] MEDS: NS 1,000 ML IV SCH ×2 (02:40→12:53)
[2018-06-07] MEDS ORDERED: LACTULOSE 20 GM/30 ML UDCUP PO PRN (02:55)
[2018-06-07] MEDS ORDERED: MAGNESIUM HYDROXIDE 30 ML UDCUP PO PRN (02:55)
[2018-06-07] MEDS ORDERED: BISACODYL 10 MG SUPP PR PRN (02:55)
[2018-06-07] MEDS ORDERED: POLYETHYLENE GLYCOL 3350 17 GM PKT PO PRN (02:55)
[2018-06-07] MEDS ORDERED: HYDROmorphONE/DILAUDID 2 MG TAB PO PRN (02:56)
[2018-06-07] MEDS ORDERED: diphenhydrAMINE 25 MG CAP PO PRN (03:27)
[2018-06-07] MEDS ORDERED: ZOLPIDEM TARTRATE 5 MG TAB PO PRN (03:27)
[2018-06-07 05:30] LABS: PLATELET COUNT 265 10^3/uL (150-400)
--- NOTE | 2018-06-07 05:42 | GHP ---
DATE OF ADMISSION: 06/07/2018 SOURCE: Patient provides history, appears reliable. EMR is reviewed and case discussed with ED prov hronda. CHIEF COMPLAINT: Abdominal pain. HISTORY OF PRESENT ILLNESS: This is a very pleasant 63-year-old female with a past medical history s ignificant for stage IV breast cancer initially diagnosed in 2010, status post right mastectomy, unde rgoing chemotherapy, followed by Dr. Terrazas; history of PE, on Xarelto; anxiety, depression, chronic p ain, chronic opiate dependence who presents to the emergency department today with complaints of acut e on chronic abdominal pain. Patient reports that approximately 3 p.m. date of arrival to the ED betty mc developed an acute diffuse and mostly right upper abdominal pain that worsened. She also develo ped some nausea without any vomiting. She has been having some increasing constipation for the past few days. She has also noted some fevers, chills, and sweats at home. Her highest T-max temperature measured at home was 100 degrees Fahrenheit. The patient has also been noting some sweats, declinin g appetite and oral intake. The patient was unsure of something worse than her baseline abdominal pa in related to her cancer may have been ongoing. REVIEW OF SYSTEMS: Ten systems reviewed and negative except as noted above. ALLERGIES: Oxycodone, but tolerates all other narcotics. HOME MEDICATIONS: Morphine SR 50 mg p.o. b.i.d., Unisom 50 mg p.o. h.s., venlafaxine 150 mg p.o. wu ly, senna 8.6 mg p.o. daily p.r.n., Xarelto 20 mg p.o. daily, Protonix 40 mg p.o. daily p.r.n., Dilau did 1 mg p.o. q.3-4 hours p.r.n. for pain, Neurontin 300 mg p.o. b.i.d., docusate 1-3 caps p.o. daily p.r.n., Valium 5 mg p.o. q.6-8 hours p.r.n., dexamethasone 4 mg p.o. b.i.d., vitamin D3 1000 units p .o. daily, Tylenol 1-2 tabs p.o. p.r.n. PAST MEDICAL HISTORY: Significant for stage IV breast cancer, history of PE on Xarelto currently, hi story of chronic pain with chronic opiate use, depression, anxiety, admission for pneumonia 12/2017. PAST SURGICAL HISTORY: Significant for right mastectomy and . Right port placement. FAMILY HISTORY: Grandmother with ovarian cancer. Family history of hypertension. SOCIAL HISTORY: Patient is , lives with her . She does not smoke, drink, or utilize a ny illicit drugs or marijuana. CODE STATUS: DNR/DNI. PHYSICAL EXAMINATION: VITAL SIGNS: Upon arrival to the emergency department, blood pressure is 124/ 87, heart rate 96, respiratory rate 20, O2 saturation 91% on room air, temperature 37.6. Vitals on [facility] floor: Blood pressure is 111/78, heart rate is 82, respiratory rate 16, O2 saturation is 98% on 2 L by nasal cannula, temperature of 36.8. Per discussion with ED provider, patient has occasional de sats down into the mid 80s. GENERAL: No acute distress. Very pleasant, frail, chronically ill-appe aring female lying quietly in bed. HEAD: Normocephalic, atraumatic. However, is limited as patient does have a head wrap on. EYES: Extraocular muscles are grossly intact. Pupils equal, round, decr eased reactivity to light bilaterally, but symmetric. No scleral icterus or conjunctival injection. Patient does have some dry eye notable. ENT: Mucous membranes appear dry. Dentition is in fair co ndition. No nasal discharge. NECK: Supple. Trachea midline. CV: Regular rate and rhythm. Sligh tly distant heart sounds. Regular rhythm. LUNGS: Poor inspiratory effort. Diminished bibasilarly. No wheezes, rales, or rhonchi appreciated. ABDOMEN: Distended, tender to the right upper abdomen with palpable mass and hepatomegaly. No rebound or guarding appreciated. Hypoactive bowel sounds pr esent. : No suprapubic tenderness to palpation. No Alejo catheter in place. CHEST: Patient zelaya s have a right port in place that has been accessed. MUSCULOSKELETAL: Patient with generalized weak ness, deconditioning. She was lying on her side. She moves all extremities with generalized weaknes s 4/5 in upper and lower extremities. NEURO: Grossly nonfocal. No facial drooping. Moves all extr emities. Patient awake, alert, and oriented x3. She does appear to have intermittent episodes of so me difficulties with recall memory, but otherwise thought process, content, and questions appropriate . PSYCH: As noted above. LABORATORY STUDIES: WBC 16.09, H and H 11.6 and 36.3, MCV 80.0, platelet count is 296, neutrophil pe rcent 91.5, PT is 16.2, INR is 1.28, PTT is 33.0, lactic acid 1.0. Sodium 134, potassium 4.3, chloride 100, CO2 24, anion gap 10, BUN 8, creatinine 0.5, GFR greater myke n 60, glucose is 110, calcium 10.5, total bilirubin 0.5, ALT is 104, AST is 156, alkaline phosphatase is 407. Troponin is negative. Total protein 6.8, albumin 3.7, lipase is 50. UA specific gravity 1 .020 with a pH of 7.0, trace leuk esterase, WBCs 5-10, otherwise negative. CT abdomen and pelvis showing mild interval worsening hepatic metastases. New enlarging kanwal metast asis in surinder hepaticus. Grossly stable extensive osseous metastases, increased basilar atelectasis with additional findings including moderate stool in the colon. Normal appendix. No free air. Fat containing umbilical hernia, small hiatal hernia. Extensive osseous metastases including pathologic compression fractures T7, T9, L1, L2 are stable. Grossly stable retropulsion margin of L2 vertebral body. Extensive bibasilar atelectasis increased. Scattered tiny noncalcified pulmonary nodules not significantly changed. ASSESSMENT AND PLAN: This is a very pleasant 63-year-old female with a history of stage IV metastati c disease with metastases to abdomen and bone, pulmonary embolus on Xarelto, chronic pain, depression , anxiety, who presents to the emergency department today with complaints of acute on chronic abdomin al pain. 1. Abdominal pain. Patient does have progression of her metastatic disease. This is likely represe nting pain related to her cancer. She does not have any evidence of an acute finding. No obstructio n or perforation. No evidence of colitis. Pain control will be managed with p.r.n. which patient cu rrently reporting some improvement, but persistence of her symptoms. 2. SIRS criteria with leukocytosis. Report of low-grade fevers, tachycardia. Lactate is within nor mal limits. Patient has been started on Levaquin in the emergency department. She has evidence of a progressive atelectasis. Currently, she is not having any complaints of respiratory symptoms. We w ill plan to hydrate the patient overnight and reassess in the morning. The patient was given Levaqui n, which will be adequate for 24 hours of coverage. We will defer continuation of antibiotics to day hospitalist based on reassessment and repeat laboratory studies. The patient did have a history of hospitalization in December for pneumonia. 3. Constipation. Bowel regimen has been ordered. 4. Metastatic breast cancer. Oncology will be notified in the morning. Continue with supportive me asures and pain control. 5. History of pulmonary embolus. Continue Xarelto. 6. Acute on chronic pain. Continue patient's morphine and Dilaudid p.r.n. with IV morphine for compa kthrough. 7. Depression/anxiety. Resume patient's venlafaxine. 8. Anemia likely of chronic disease in setting of metastatic disease. 9. Transaminitis due to metastatic disease to the liver. 10. Fluid, electrolyte, nutrition. Continue with IV fluids overnight. Electrolyte monitoring repla cement if needed. Advance diet as tolerated. 11. Prophylaxis. SCDs. Continue patient's Xarelto. 12. Code status is DNR/DNI. The patient reports that she has advanced directive in place. 13. Disposition. Patient admitted to observation status at this time on the oncology floor for cont inued management of her acute on chronic pain. /[id number]/MODL
[2018-06-07] MEDS: morphINE SR 15 MG TAB PO SCH ×2 (09:33→20:15)
[2018-06-07] MEDS: GABAPENTIN 300 MG CAP PO SCH ×3 (09:34→20:15)
[2018-06-07] MEDS: SENNOSIDES/DOCUSATE SODIUM TAB PO SCH ×2 (09:34→20:16)
[2018-06-07] MEDS: RIVAROXABAN 20 MG TAB PO SCH (09:34)
[2018-06-07] MEDS ORDERED: ACETAMINOPHEN 325 MG TAB PO PRN (11:55)
[2018-06-07] MEDS ORDERED: RIVAROXABAN 20 MG TAB PO SCH (12:15)
[2018-06-07] MEDS: VENLAFAXINE XR 150 MG CAP PO SCH (13:04)
--- NOTE | 2018-06-07 14:45 | PDCONSULT ---
Teaching Manager Note: Hematology/oncology consultation Requesting provider: Riley Palmer Reason for consultation: Metastatic breast cancer with abdominal pain Outpatient oncologist: Dr. Dinesh Terrazas History of present illness: Edelmira is a 63-year-old female with history of metastatic breast cancer previously on Eribulin who was admitted for abdominal pain. She is well known to our practice and is followed by my partner Dr. Dinesh Terrazas. She was initially diagnosed with breast cancer in 2010 and had stage IIIC disease at that time. She was ER/SD positive HER2 negative. She received definitive therapy with surgery with a modified radical mastectomy followed by adjuvant chemotherapy with doxorubicin, cyclophosphamide and paclitaxel. She had disease recurrence in 2014 was treated with fulvestrant. She then was on clinical trial with Taxol with or without alisertib. She subsequently received Xeloda up until June 2017. Most recently she started on Eribulin July of 2017 up until recently. She had scans last month that showed disease progression with significant hepatic metastasis. She currently is being evaluated for second-line therapy with plans of initiating carboplatin and gemcitabine. She had contacted me yesterday due to ongoing symptoms of constipation and abdominal pain. She was taking Dilaudid and MS Contin for cancer related pain and developed significant constipation had not had a bowel movement for the last 4 days. She was seen in the [place] emergency room and a CT scan demonstrated stable hepatic metastasis and abdominal lymphadenopathy. She had significant stool within the bowels alongside intestinal distension from gas. She has received lactulose and has not had any bowel movement since admission. Past medical surgical history: Metastatic breast cancer as per above Pulmonary embolism Depression Anxiety Right mastectomy [id number] placement Family history: Grandmother with ovarian cancer. Social history: She is lives with her . She has no smoking history Medications: Reviewed in [employer] Allergies: Oxycodone Review of systems: 12 point review systems was done and was otherwise negative Physical examination: Temp Pulse Resp BP Pulse Ox 36.6 C 75 16 103/72 97 06/07/18 11:04 06/07/18 11:04 06/07/18 11:04 06/07/18 11:04 06/07/18 11:04 O2 (L/minute) 2 General: Pleasant-appearing female appears in no acute distress Cardiovascular: Regular rhythm Pulmonary: Clear to auscultation bilaterally Abdomen: Slightly tympanic, bowel sounds are hyperactive, slight tenderness throughout, no hepatosplenomegaly, no rebound or guarding Extremities: No cyanosis clubbing or edema Psych: Appropriate affect Neuro: Moving all extremities Skin: No skin lesions Lymph: No lymphadenopathy WBC 10.09 10^3/uL (3.80-9.50) H 06/07/18 05:15 RBC 3.96 10^6/uL (4.18-5.33) L 06/07/18 05:15 Hgb 10.2 g/dL (12.6-16.3) L 06/07/18 05:15 Hct 32.1 % (38.0-47.0) L 06/07/18 05:15 MCV 81.1 fL (81.5-99.8) L 06/07/18 05:15 MCH 25.8 pg (27.9-34.1) L 06/07/18 05:15 MCHC 31.8 g/dL (32.4-36.7) L 06/07/18 05:15 RDW 17.0 % (11.5-15.2) H 06/07/18 05:15 Plt Count 265 10^3/uL (150-400) 06/07/18 05:15 MPV 10.1 fL (8.7-11.7) 06/07/18 05:15 Neut % (Auto) 84.4 % (39.3-74.2) H 06/07/18 05:15 Lymph % (Auto) 4.8 % (15.0-45.0) L 06/07/18 05:15 [place] % (Auto) 10.2 % (4.5-13.0) 06/07/18 05:15 Eos % (Auto) 0.0 % (0.6-7.6) L 06/07/18 05:15 Baso % (Auto) 0.2 % (0.3-1.7) L 06/07/18 05:15 Nucleat RBC Rel Count 0.0 % (0.0-0.2) 06/07/18 05:15 Absolute Neuts (auto) 8.52 10^3/uL (1.70-6.50) H 06/07/18 05:15 Absolute Lymphs (auto) 0.48 10^3/uL (1.00-3.00) L 06/07/18 05:15 Absolute Monos (auto) 1.03 10^3/uL (0.30-0.80) H 06/07/18 05:15 Absolute Eos (auto) 0.00 10^3/uL (0.03-0.40) L 06/07/18 05:15 Absolute Basos (auto) 0.02 10^3/uL (0.02-0.10) 06/07/18 05:15 Absolute Nucleated RBC 0.00 10^3/uL (0-0.01) 06/07/18 05:15 Immature Gran % 0.4 % (0.0-1.1) 06/07/18 05:15 Immature Gran # 0.04 10^3/uL (0.00-0.10) 06/07/18 05:15 RBC/WBC/PLT Morphology TNP 06/07/18 05:15 Platelet Estimate TNP 06/07/18 05:15 PT 16.2 SEC (12.0-15.0) H 06/06/18 22:30 INR 1.28 (0.83-1.16) H 06/06/18 22:30 APTT 33.0 SEC (23.0-38.0) 06/06/18 22:30 VBG Lactic Acid 0.7 mmol/L (0.7-2.1) 06/07/18 05:15 Sodium 138 mEq/L (135-145) 06/07/18 05:15 Potassium 4.4 mEq/L (3.5-5.2) 06/07/18 05:15 Chloride 106 mEq/L (97-110) 06/07/18 05:15 Carbon Dioxide 25 mEq/l (22-31) 06/07/18 05:15 Anion Gap 7 mEq/L (6-14) 06/07/18 05:15 BUN 7 mg/dL (7-23) 06/07/18 05:15 Creatinine 0.5 mg/dL (0.6-1.0) L 06/07/18 05:15 Estimated GFR > 60 06/07/18 05:15 Glucose 103 mg/dL (70-100) H 06/07/18 05:15 Calcium 9.9 mg/dL (8.5-10.4) 06/07/18 05:15 Total Bilirubin 0.5 mg/dL (0.1-1.4) 06/07/18 05:15 Conjugated Bilirubin 0.3 mg/dL (0.0-0.5) 06/06/18 22:30 Unconjugated Bilirubin 0.4 mg/dL (0.0-1.1) 06/06/18 22:30 AST 116 IU/L (14-46) H 06/07/18 05:15 ALT 82 IU/L (9-52) H 06/07/18 05:15 Alkaline Phosphatase 299 IU/L (38-126) H 06/07/18 05:15 POC Troponin I 0.00 ng/mL (0.00-0.08) 06/06/18 22:35 Total Protein 5.9 g/dL (6.3-8.2) L 06/07/18 05:15 Albumin 3.2 g/dL (3.5-5.0) L 06/07/18 05:15 Lipase 50 IU/L (23-300) 06/06/18 22:30 Urine Color PALE YELLOW 06/06/18 23:50 Urine Appearance CLEAR 06/06/18 23:50 Urine pH 7.0 (5.0-7.5) 06/06/18 23:50 Ur Specific [place] 1.020 (1.002-1.030) 06/06/18 23:50 Urine Protein NEGATIVE (NEGATIVE) 06/06/18 23:50 Urine Ketones NEGATIVE (NEGATIVE) 06/06/18 23:50 Urine Blood NEGATIVE (NEGATIVE) 06/06/18 23:50 Urine Nitrate NEGATIVE (NEGATIVE) 06/06/18 23:50 Urine Bilirubin NEGATIVE (NEGATIVE) 06/06/18 23:50 Urine Urobilinogen NEGATIVE EU (0.2-1.0) 06/06/18 23:50 Ur Leukocyte Esterase TRACE (NEGATIVE) H 06/06/18 23:50 Urine RBC 1-3 /hpf (0-3) 06/06/18 23:50 Urine WBC 5-10 /hpf (0-3) H 06/06/18 23:50 Ur Epithelial Cells TRACE /lpf (NONE-1+) 06/06/18 23:50 Urine Mucus TRACE /lpf (NONE-1+) 06/06/18 23:50 Urine Glucose NEGATIVE (NEGATIVE) 06/06/18 23:50 CT of the abdomen pelvis 06/06/2018 demonstrates multifocal hepatic metastasis the largest being 6.6 x 6.4 cm. There and enlarging portacaval lymph node. There is extensive osseous metastasis. There is moderate amount of stool. Assessment plan Edelmira is a 63-year-old female with history of metastatic breast cancer who was admitted for abdominal pain and constipation. 1. Abdominal pain: I feel the majority of this is secondary to her ongoing constipation related to her opiate use. She is taking lactulose and is still is not had a significant bowel movement. She did take a Dulcolax suppository as well at home. If she does not have a bowel movement we could consider all methylnaltrexone. 2. Cancer related pain: She is receiving MS Contin and Dilaudid. 3. Metastatic breast cancer: She will continue follow-up with Dr. Terrazas for initiation chemotherapy as outpatient. All questions were answered. She voiced understanding the plan. She appreciative of my care today.
--- NOTE | 2018-06-07 15:32 | HOSPPROG ---
Hospitalist Progress Note Assessment/Plan: 63yo F with metastatic breast cancer here with intractable abdominal pain. 1. Acute abdominal pain: Suspect combo of constipation and liver mets. - Aggressive bowel regimen, hydration - Avoid IV narcotics if able - Reviewed imaging with onc, doesn't have significant liver capsular stretch , unlikely to benefit from steroids. Could consider palliative radiation to liver as outpatient 2. Leukocytosis: Likely reactive from malignancy. S/p dose of levofloxacin in ED but will discontinue as no localizing source of infection. 3. Acute hypoxemic resp insufficiency: Requiring 1-2L. Due to atelectasis from splinting. 4. Metastatic breast cancer: Onc following. Sees Dr Terrazas as outpt. 5. H/o PE: Cont xarelto. 6. Anemia: Likely 2/2 cancer/chronic disease. 7. Transaminitis: Due to metastatic disease. Down-trending and near baseline. VTE ppx: therapeutic anticoagulation Code: DNR Dispo: Switch to inpatient for uncontrolled pain. Subjective: No sig change in abdominal pain. Mostly RUQ. Some nausea but no emesis. [place] hasn't had BM. No fevers or cough. Objective: Vital Signs Temp Pulse Resp BP Pulse Ox 36.6 C 75 16 103/72 97 06/07/18 11:04 06/07/18 11:04 06/07/18 11:04 06/07/18 11:04 06/07/18 11:04 Laboratory Results 06/07/18 05:15 06/07/18 05:15 06/06/18 06/07/18 06/08/18 05:59 05:59 05:59 Intake Total 290 Balance 290 PT 16.2 SEC (12.0-15.0) H 06/06/18 22:30 INR 1.28 (0.83-1.16) H 06/06/18 22:30 - Physical Exam Constitutional: no apparent distress, chronically ill appearing Eyes: anicteric sclera Ears, Nose, Mouth, Throat: moist mucous membranes Cardiovascular: regular rate and rhythym, no murmur, rub, or gallop Respiratory: no respiratory distress, no rales or rhonchi, clear to auscultation Gastrointestinal: tenderness (RUQ), distension, No normoactive bowel sounds, No guarding Genitourinary: no bladder fullness, no bladder tenderness, no renal bruits Skin: no rashes or abrasions, no fluctuance, no induration Musculoskeletal: full muscle strength, no muscle tenderness, normal joint ROM Neurologic: AAOx3, sensation intact bilaterally Psychiatric: interacting appropriately, not anxious, not encephalopathic, thought process linear ICD10 Worksheet Patient Problems: Problems Problem Status Onset Abdominal pain Acute Metastatic breast cancer Acute Anemia Acute Chemotherapy adverse reaction Acute Fever Acute Hip pain Acute Hypoxia Acute Pneumonia Acute Pulmonary embolism Acute
--- NOTE | 2018-06-07 19:46 | PDMN ---
Medical Necessity Medical necessity: [facility] gastroenterology / Oncology intractable abd pain suspect combination constipation and liver mets. leukocytosis, acute hypoxemic resp insuff. req 1-2 L O2., elevated LFT, PMH Met. Br. Ca., anemia, transminiitis, pt with persistent abd pain status changed to INPT for ongoing med nec care, further eval and monitoring
[2018-06-07] MEDS: POLYETHYLENE GLYCOL 3350 17 GM PKT PO SCH (20:17)
[2018-06-07] MEDS ORDERED: DIPHENHYDRAMINE HCL 50 MG PO SCH (21:00)
[2018-06-07] MEDS ORDERED: GABAPENTIN 300 MG CAP PO SCH (21:00)
[2018-06-07] MEDS ORDERED: morphINE SR 15 MG TAB PO SCH (21:00)
[2018-06-08] MEDS ORDERED: CALCIUM CARBONATE 500 MG CHEWABLE TAB PO PRN (00:27)
[2018-06-08] MEDS: NS 1,000 ML IV SCH ×2 (05:13→16:56)
[2018-06-08] MEDS ORDERED: MAGNESIUM CITRATE 300 ML BOTTLE PO ONE (09:30)
[2018-06-08] MEDS ORDERED: KETOROLAC 30 MG/1 ML SDV IVP ONE (09:33)
[2018-06-08] MEDS ORDERED: METHYLNALTREXONE BROMIDE 12 MG/0.6 ML INJ SC ONE (09:38)
--- NOTE | 2018-06-08 09:43 | HOSPPROG ---
Hospitalist Progress Note Assessment/Plan: # abd pain - hepatic capsular stretch vs constipation - aggressive bowel regimen; trial of relistor today - toradol IV # metastatic breast cancer - on chemo; oncology involved # leukocytosis - resolved # acute hypoxic resp failure - d/t abd pain, resolving # hx PE - xarelto # anemia of chronic disease # transaminitis - stable to slightly increased Subjective: still no BM; c/o ongoing RUQ abd pain Objective: Vital Signs Temp Pulse Resp BP Pulse Ox 37.0 C 70 12 114/70 96 06/08/18 08:49 06/08/18 08:49 06/08/18 08:49 06/08/18 08:49 06/08/18 08:49 Laboratory Results 06/08/18 05:00 06/08/18 05:00 06/07/18 06/08/18 06/09/18 05:59 05:59 05:59 Intake Total 1895 Output Total 2020 Balance -125 PT 16.2 SEC (12.0-15.0) H 06/06/18 22:30 INR 1.28 (0.83-1.16) H 06/06/18 22:[address] personally reviewed discussed with Dr Israel - Physical Exam Constitutional: uncomfortable Cardiovascular: regular rate and rhythym, no murmur, rub, or gallop Respiratory: no respiratory distress, no rales or rhonchi, clear to auscultation Gastrointestinal: normoactive bowel sounds, other (soft, RUQ TTP), No guarding, No rebound, No distension ICD10 Worksheet Patient Problems: Problems Problem Status Onset Abdominal pain Acute Metastatic breast cancer Acute Anemia Acute Chemotherapy adverse reaction Acute Fever Acute Hip pain Acute Hypoxia Acute Pneumonia Acute Pulmonary embolism Acute
--- NOTE | 2018-06-08 09:53 | SOAPPROG ---
SOAP Progress Note Assessment/Plan: Assessment: Edelmira is a 63-year-old female with history of metastatic breast cancer is admitted for significant constipation. 1. Opiate induced constipation: She has had no bowel movements in the last 6 days. I agree with proceeding with methylnaltrexone alongside enemas today. 2. Cancer related pain: Unfortunately it has been a bounce of getting her pain under control and also controlling her constipation. I will continue her opiate analgesics for the time being. 3. Metastatic breast cancer: She will follow-up with Dr. Terrazas at time of discharge. 06/08/18 09:57 Subjective: No acute events overnight. She has had no bowel movements. She continues to have significant flatus. Twelve point review of system was done and was otherwise negative. Objective: Vital Signs Temp Pulse Resp BP Pulse Ox 37.0 C 70 12 114/70 96 06/08/18 08:49 06/08/18 08:49 06/08/18 08:49 06/08/18 08:49 06/08/18 08:49 Laboratory Results 06/08/18 05:00 06/08/18 05:00 06/07/18 06/08/18 06/09/18 05:59 05:59 05:59 Intake Total 1895 Output Total 2020 Balance -125 PT 16.2 SEC (12.0-15.0) H 06/06/18 22:30 INR 1.28 (0.83-1.16) H 06/06/18 22:30 General: Pleasant-appearing female appears in no acute distress Cardiovascular: Regular rate and rhythm Pulmonary: Clear on anterior auscultation Abdomen: High-pitched bowel sounds, slight tenderness in the right upper quadrant, no rebound or guarding Extremities: No cyanosis clubbing Psych: Appropriate affect Neuro: Moving all extremities ICD10 Worksheet Patient Problems: Problems Problem Status Onset Abdominal pain Acute Metastatic breast cancer Acute Anemia Acute Chemotherapy adverse reaction Acute Fever Acute Hip pain Acute Hypoxia Acute Pneumonia Acute Pulmonary embolism Acute
[2018-06-08] MEDS: GABAPENTIN 300 MG CAP PO SCH ×3 (10:28→20:09)
[2018-06-08] MEDS: PANTOPRAZOLE SODIUM 40 MG TAB PO SCH (10:28)
[2018-06-08] MEDS: VENLAFAXINE XR 150 MG CAP PO SCH (10:28)
[2018-06-08] MEDS: morphINE SR 15 MG TAB PO SCH ×2 (10:29→20:09)
[2018-06-08] MEDS: SENNOSIDES/DOCUSATE SODIUM TAB PO SCH (10:29)
[2018-06-08] MEDS: RIVAROXABAN 20 MG TAB PO SCH (10:29)
[2018-06-08] MEDS: POLYETHYLENE GLYCOL 3350 17 GM PKT PO SCH (10:30)
--- NOTE | 2018-06-08 14:20 | ASMTCMCOM ---
CM Note CM Note Notes: Pt admitted to hospital with increasing abdominal pain. She has a hx of stage IV breast ca. Imaging reveals worsening hepatic metastases. She is admitted for pain control. Pt declined the need for OT and no other therapies ordered. Anticipate will dc home w/support of when medically stable. DC Plan: Independent Date Signed: 06/07/2018 01:34 PM Electronically Signed By:Shaniqua Downey RN
[2018-06-08] MEDS: LORazepam 1 MG TAB PO PRN (20:10)
[2018-06-09 06:04] LABS: PLATELET COUNT 256 10^3/uL (150-400)
[2018-06-09] MEDS: RIVAROXABAN 20 MG TAB PO SCH (08:27)
[2018-06-09] MEDS: GABAPENTIN 300 MG CAP PO SCH ×3 (08:27→22:06)
[2018-06-09] MEDS: PANTOPRAZOLE SODIUM 40 MG TAB PO SCH (08:27)
[2018-06-09] MEDS: morphINE SR 15 MG TAB PO SCH ×2 (08:27→20:25)
[2018-06-09] MEDS: VENLAFAXINE XR 150 MG CAP PO SCH (08:27)
[2018-06-09] MEDS: NS 1,000 ML IV SCH (10:30)
--- NOTE | 2018-06-09 13:16 | HOSPPROG ---
Hospitalist Progress Note Assessment/Plan: # abd pain - hepatic capsular stretch vs constipation - pain is actually better today - cont bowel regimen # constipation - had a BM yesterday - continue bowel regimen; fleets again today # fever, new infiltrate on CXR - will treat for pna, this could also be atelectasis - check BCx - levaquin D#1 # acute hypoxic resp failure - d/t abd pain, resolving, atelectasis, pna # metastatic breast cancer - on chemo; oncology involved # leukocytosis - worse again today # hx PE - xarelto # anemia of chronic disease # transaminitis - stable to slightly increased Subjective: fever this am; very small amount of coughing; feels SOB Objective: Vital Signs Temp Pulse Resp BP Pulse Ox 38.3 C 98 16 119/69 92 06/09/18 12:40 06/09/18 12:40 06/09/18 12:40 06/09/18 12:40 06/09/18 12:40 Laboratory Results 06/09/18 05:55 06/09/18 05:55 06/08/18 06/09/18 06/10/18 05:59 05:59 05:59 Intake Total 1895 3576 Output Total 2020 2390 Balance -125 1186 PT 16.2 SEC (12.0-15.0) H 06/06/18 22:30 INR 1.28 (0.83-1.16) H 06/06/18 22:30 high risk with new fever - Physical Exam Constitutional: no apparent distress, appears nourished Eyes: anicteric sclera Ears, Nose, Mouth, Throat: hearing normal Cardiovascular: No edema Respiratory: no respiratory distress Gastrointestinal: soft, non-tender abdomen, no palpable masses Genitourinary: No taveras in urethra Skin: warm Musculoskeletal: full muscle strength Neurologic: AAOx3 Psychiatric: not anxious ICD10 Worksheet Patient Problems: Problems Problem Status Onset Hip pain Acute Anemia Acute Chemotherapy adverse reaction Acute Fever Acute Metastatic breast cancer Acute Pneumonia Acute Hypoxia Acute Pulmonary embolism Acute Abdominal pain Acute
[2018-06-09] MEDS: LORazepam 1 MG TAB PO PRN (22:06)
[2018-06-10 05:57] LABS: PLATELET COUNT 198 10^3/uL (150-400)
[2018-06-10] MEDS: VENLAFAXINE XR 150 MG CAP PO SCH (09:13)
[2018-06-10] MEDS: GABAPENTIN 300 MG CAP PO SCH ×3 (09:14→22:06)
[2018-06-10] MEDS: morphINE SR 15 MG TAB PO SCH ×2 (09:14→20:53)
[2018-06-10] MEDS: PANTOPRAZOLE SODIUM 40 MG TAB PO SCH (09:14)
[2018-06-10] MEDS: RIVAROXABAN 20 MG TAB PO SCH (09:14)
[2018-06-10] MEDS ORDERED: FUROSEMIDE 20 MG/2 ML VIAL IVP ONE (16:23)
[2018-06-10] MEDS ORDERED: ALBUTEROL 3 ML DEYVIAL IH PRN (16:24)
--- NOTE | 2018-06-10 16:27 | PDPCPN ---
Palliative Care Progress Note Assessment/Plan: Assessment: Palliative Visit Name: Edelmira Landa : 1955 Visit Type: Hospital palliative care visit Location: [facility] Date: 06/10/2018 DIAGNOSES: 1. Stage III Metastatic Breast Cancer 2. 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 Her most recent scans indicate progressive disease primarily in the liver. She has been admitted to [facility] secondary to abdominal pain. She was found to be constipated and now has had several bowel movements with resolution of the pain. She is also been found to be slightly hypoxic and is being treated empirically for pneumonia. She is followed by Dr. Terrazas at [facility] and is planning a new treatment regimen. Code Status: DNR MDPOA: Darius Landa (spouse) Patient Goals of Care: 1. Continue with treatment 2. Continued comfort Review of Symptoms: General: denies malaise, reports fatigue Respiratory: denies cough, wheezing, denies dyspnea, Complaint of some shortness of breath Cardiovascular: denies hx of heart disease, denies chest pain, denies edema GI: reports nausea, constipation, reports abdominal pain : denies dysuria, frequency MS: reports back pain, (L) hip pain improved; arthralgia. Neuro: denies dizziness, reports weakness, memory good Psych: hx of depression or treatment for psychiatric disorders, denies insomnia , appetite loss Palliative Performance Score: 60% Amb reduced, Unable to do hobby/housework, Self-care/occ assist, Intake normal/reduced, LOC full or confusion OBJECTIVE FINDINGS Vital Signs: Current weight: Neuro: A&O to person, place, speech clear and coherent, able to understand situation, no tremors, no paresis HEENT: Normocephalic; atraumatic; no dysphagia, without oral lesions RESP: Diminished breath sounds throughout. Right basilar crackles CARD: RRR, no edema GI: abd. Soft, tender, positive bowel sounds x4 : no dysuria or hematuria MSK: well nourished, ambulates w/o walker today, gait unsteady EXTREMITIES: DP/PT palpable, LE cool SKIN: intact LAB Data: n/a Active Symptoms/Assessment & Recommendations 1. Fatigue/weakness- help with ADLs, frequent naps, educated on some mild exercise daily, reviewed fall precautions, lives with daughter and 2. Pain- left hip pain, thoracic pain 08/02, MS Contin 15mg BID, Dilaudid 2mg 1 -2 tabs Q 4 hrs PRN, 3. Constipation-intermittent, educated on effects of opioids on constipation, Senna 2 tabs BID, Miralax PRN, encourage fluids, prunes daily; daily activity 4. Anxiety- Diazepam 5mg Q 4hrs PRN, she is out of med and awaiting rx; meditation, seeing SALES SERVICE TECHNICIAN for support, finds strength in her family 5. Metastatic breast carcinoma C 50.919: Progressive disease. The plan is to start a new chemotherapy regimen. Caregiver Strain: No, lives with spouse and grown daughter Prognosis: months Hospice Eligibility: Yes, goals not aligned Recommended Hospice Admitting Diagnosis: n/a Disposition: living safely and comfortably at home PLAN: Level of Care: Hospice eligible CORSAGE MAKER: will schedule community palliative CORSAGE MAKER visit prior to discharge TECHNICAL SUPPORT 1 SOFTWARE ENGINEER: yes, emotional support, and resources Fax Visit Notes to PCP/Specialists: Dr. Terrazas [facility] PALLIATIVE SUMMARY: Thank you for the opportunity to participate in the care of this patient. TIME SPENT [id number] 35 min >50% of the time spent counseling, educating and coordinating the above topics. Lux Espinal [facility] Plan: 06/10/18 16:27 Objective: Vital Signs Temp Pulse Resp BP Pulse Ox 36.6 C 87 18 110/72 89 L 06/10/18 15:47 06/10/18 15:47 06/10/18 15:47 06/10/18 15:47 06/10/18 15:47 Microbiology 06/09/18 14:10 Respiratory Panel (PCR) - Final Nasal, Sinus - Swab No Organism Detected By Pcr Laboratory Results 06/10/18 04:40 06/10/18 04:40 06/09/18 06/10/18 06/11/18 05:59 05:59 05:59 Intake Total 3576 950 629 Output Total 2390 1000 Balance 1186 -50 629 PT 16.2 SEC (12.0-15.0) H 06/06/18 22:30 INR 1.28 (0.83-1.16) H 06/06/18 22:30 ICD10 Worksheet Patient Problems: Problems Problem Status Onset Abdominal pain Acute Metastatic breast cancer Acute Anemia Acute Chemotherapy adverse reaction Acute Fever Acute Hip pain Acute Hypoxia Acute Pneumonia Acute Pulmonary embolism Acute
--- NOTE | 2018-06-10 16:29 | HOSPPROG ---
Hospitalist Progress Note Assessment/Plan: # abd pain - hepatic capsular stretch vs constipation # constipation - improving - continue bowel regimen # fever, new infiltrate on CXR - will treat for pna, this could also be atelectasis - check BCx - levaquin D#1 # acute hypoxic resp failure - d/t abd pain, resolving, atelectasis, pna -still hypoxic. CXR reviewed # metastatic breast cancer - on chemo; oncology involved # leukocytosis - better # hx PE - xarelto # anemia of chronic disease # transaminitis - stable to slightly increased Plan: Abd is better. Will give stool softner plus Fleets today Lasix x 1 albuterol prn and scheduled Subjective: still hypoxic. no cp. afebrile. abd pain is better. Objective: Vital Signs Temp Pulse Resp BP Pulse Ox 36.6 C 87 18 110/72 89 L 06/10/18 15:47 06/10/18 15:47 06/10/18 15:47 06/10/18 15:47 06/10/18 15:47 Microbiology 06/09/18 14:10 Respiratory Panel (PCR) - Final Nasal, Sinus - Swab No Organism Detected By Pcr Laboratory Results 06/10/18 04:40 06/10/18 04:40 06/09/18 06/10/18 06/11/18 05:59 05:59 05:59 Intake Total 3576 950 629 Output Total 2390 1000 Balance 1186 -50 629 PT 16.2 SEC (12.0-15.0) H 06/06/18 22:30 INR 1.28 (0.83-1.16) H 06/06/18 22:30 - Physical Exam Constitutional: chronically ill appearing Eyes: PERRL Ears, Nose, Mouth, Throat: moist mucous membranes, hearing normal Cardiovascular: regular rate and rhythym, No edema Respiratory: reduced air movement Gastrointestinal: normoactive bowel sounds, soft, non-tender abdomen Skin: warm Neurologic: AAOx3 Psychiatric: interacting appropriately, not anxious, not encephalopathic Lymph, Heme, Immunologic: No petechiae ICD10 Worksheet Patient Problems: Problems Problem Status Onset Abdominal pain Acute Metastatic breast cancer Acute Anemia Acute Chemotherapy adverse reaction Acute Fever Acute Hip pain Acute Hypoxia Acute Pneumonia Acute Pulmonary embolism Acute
[2018-06-10] MEDS ORDERED: BISACODYL 10 MG SUPP PR ONE (18:00)
[2018-06-10] MEDS ORDERED: POLYETHYLENE GLYCOL 3350 17 GM PKT PO SCH (21:00)
[2018-06-10] MEDS ORDERED: ALBUTEROL 3 ML DEYVIAL IH SCH (21:00)
[2018-06-10] MEDS: LORazepam 1 MG TAB PO PRN (22:06)
--- NOTE | 2018-06-11 09:36 | ASMTCMCOM ---
CM Note CM Note Notes: Chart reviewed. CM has met with patient daily to provide support. She received [facility]. She is open to reconnect with palliative care through [facility]. She expressed fear over disease progression and side effects of chemotherapy. Up independent in halls and room. No therapies ordered. CM to follow for needs, Plan: Likely to discharge to home with family support and outpatient palliative care. Date Signed: 06/11/2018 09:36 AM Electronically Signed By:Vashti Dent RN
[2018-06-11] MEDS: RIVAROXABAN 20 MG TAB PO SCH (10:23)
[2018-06-11] MEDS: PANTOPRAZOLE SODIUM 40 MG TAB PO SCH (10:23)
[2018-06-11] MEDS: morphINE SR 15 MG TAB PO SCH (10:24)
[2018-06-11] MEDS: GABAPENTIN 300 MG CAP PO SCH ×2 (10:24→16:19)
[2018-06-11] MEDS: VENLAFAXINE XR 150 MG CAP PO SCH (10:24)
[2018-06-11] MEDS ORDERED: FUROSEMIDE 20 MG TAB PO ONE (13:12)
--- NOTE | 2018-06-11 14:33 | PDDCSUM ---
Discharge Summary Discharge Summary: 63 yo female with metastatic breast cancer admitted with abd pain and constipation. This was managed accordingly. She is not longer symptomatic. She has had multiple BM's. She is no longer having abd pain. She was noted to have hypoxemia and she received Diuretics x 2 with resolution. She still has some REYNA but even with ambulation her RA sats are above 90% and she does not qualify for home O2. On the day of d/c she is requesting d/c. She is being treated for pneumonia and is on Levaquin for 4 more days. Please see below for details per problem list. Discharge Diagnosis: # abd pain due to constipation, resolved # constipation - resolved. She will cont with daily stool softners # fever, pneumonia # acute hypoxic resp failure - resolved # metastatic breast cancer - on chemo; oncology involved # leukocytosis - better # hx PE - xarelto # anemia of chronic disease # transaminitis - stable to slightly increased Exam: NAD AAOX3 RRR CTA B S/NT/ND MEDS: SEE MED REC F/U: WITH PCP/ONCOLOGY NEXT WEEK TOTAL TIME SPENT ON D/C IS 40 MINS. D/W PT, RT, NURSING, CM, PHARMACY.
--- NOTE | 2018-06-11 15:12 | ASMTLACE ---
[facility] Length of stay for Answers: 3 days current admission Comorbidities - select Answers: Opioid dependence all that apply / Chronic pain Other Notes: Stage IV breast ca, PE # of Emergency department Answers: 1-2 visits in the last 6 months Social determinants Answers: Mental health diagnosis (anxiety, depression, pers onality disorders, etc.) Score: 12 Date Signed: 06/11/2018 03:12 PM Electronically Signed By:Vashti Dent RN
--- NOTE | 2018-06-11 15:14 | ASMTCMCOM ---
CM Note CM Note Notes: Plan of care reviewed in rounds. Patient medically cleared or discharge to home today with family support. No needs identified. CM available should needs arise. Plan: Home no needs. Date Signed: 06/11/2018 03:13 PM Electronically Signed By:Vashti Dent RN
[2018-06-11 15:45] VITALS: BP 138/88
== END 2018-06-11 17:04 | disposition home or self-care (01) | DRG 391 ==
LOC: F1N 06-07 01:56 → OBSVTOIN 06-07 15:25
PROVIDERS: ADMIT Family Medicine; ATTEND Family Medicine
DX: K59.03 Drug induced constipation (principal); T40.605A Adverse effect of unspecified narcotics, initial encounter; J18.9 Pneumonia, unspecified organism; J96.01 Acute respiratory failure with hypoxia; Z86.711 Personal history of pulmonary embolism; Z79.01 Long term (current) use of anticoagulants; D63.0 Anemia in neoplastic disease; G89.3 Neoplasm related pain (acute) (chronic); F11.20 Opioid dependence, uncomplicated; C77.2 Secondary and unspecified malignant neoplasm of intra-abdominal lymph nodes; C78.7 Secondary malignant neoplasm of liver and intrahepatic bile duct; C79.31 Secondary malignant neoplasm of brain; C79.51 Secondary malignant neoplasm of bone; Z87.311 Personal history of (healed) other pathological fracture; Z85.3 Personal history of malignant neoplasm of breast; Z90.11 Acquired absence of right breast and nipple; F32.9 Major depressive disorder, single episode, unspecified; F41.9 Anxiety disorder, unspecified
CPT/HCPCS: 84484-ER; 96365; 96366; J1170; J1642; J1885; J1940; J1956; J2212; J2405; J7613; Q9967

== ENCOUNTER 2018-06-28 18:32 | Inpatient (IN) | payer OTHER ==
[2018-06-28] MEDS ORDERED: ONDANSETRON 4 MG/2 ML VIAL IVP ONE (18:50)
[2018-06-28] MEDS ORDERED: NS 1,000 ML IV ONE ×3 (18:50→21:25)
[2018-06-28 19:18] LABS: PLATELET COUNT 318 10^3/uL (150-400)
--- NOTE | 2018-06-28 19:42 | EDPHY ---
H & P Stated Complaint: Fatigue,vomiting,confused,pain in legs/carias;has met breast ca Time Seen by Provider: 06/28/18 18:49 HPI/ROS: CHIEF COMPLAINT: Vomiting, confusion HISTORY OF PRESENT ILLNESS: 63-year-old female with metastatic breast cancer presents with vomiting and confusion. She recently started a new oral chemotherapeutic agent. Little bit or food. Associated with a several day history of gradually increasing confusion and generalized weakness. Now too weak to walk unassisted. Sleeping approximately 16 hr daily. Admitted in May 2018 for pneumonia, cough has completely resolved. No fever, abdominal pain, headache or diarrhea. REVIEW OF SYSTEMS: complete 10 point ROS reviewed and is negative except for the noted elements in the HPI - Personal History Current Tetanus Diphtheria and Acellular Pertussis (TDAP): Yes - Medical/Surgical History Hx Asthma: No Hx Chronic Respiratory Disease: No Hx Diabetes: No Hx Cardiac Disease: No Hx Renal Disease: No Hx Cirrhosis: No Hx Alcoholism: No Hx HIV/AIDS: No Hx Splenectomy or Spleen Trauma: No Other PMH: Breast CA mets to liver bone brain, mastectomy - Social History Smoking Status: Never smoked Alcohol Use: None Drug Use: None - Physical Exam Exam: General Appearance: Alert, pleasant and smiling, slightly confused, difficulty sitting up d/t weakness Eyes: Pupils equal and round, no conjunctival pallor ENT, Mouth: Mucous membranes dry Neck: Normal inspection Respiratory: Lungs are clear to auscultation Cardiovascular: Regular rate and rhythm Gastrointestinal: Abdomen is soft and nontender Neurological: Alert, oriented to person place and time, nonfocal exam Skin: Warm and dry Extremities: Normal inspection Psychiatric: Mood and affect normal Constitutional: Initial Vital Signs Temperature (C) 36.4 C 06/28/18 18:40 Heart Rate 107 H 06/28/18 18:40 Respiratory Rate 18 06/28/18 18:40 Blood Pressure 111/82 H 06/28/18 18:40 O2 Sat (%) 94 06/28/18 18:40 O2 Delivery Mode Room Air Allergies/Adverse Reactions: oxycodone Allergy (Mild, Verified 06/28/18 18:44) Itching Home Medications: Medication Instructions Recorded morphINE SR [Ms Contin/Oramorph 15 15 mg PO BID 07/29/17 mg (*)] HYDROmorphone HCL [Dilaudid 2 mg 1 - 2 mg PO Q3HRS PRN 10/04/17 (*)] Sennosides [Senna Lax] 8.6 mg PO DAILY PRN 10/04/17 Cholecalciferol (Vitamin D3) 1,000 unit PO DAILY 01/03/18 [Vitamin D3] Docusate Sodium [Dulcolax Stool 1 cap PO DAILY PRN 01/03/18 Softener] Gabapentin [Neurontin 300 MG (*)] 300 mg PO BID 01/03/18 Rivaroxaban [Xarelto] 20 mg PO DAILY 01/03/18 LORazepam [Ativan (*)] 1 mg PO TID PRN 06/07/18 Methylphenidate HCl [Ritalin 5mg 5 mg PO BID@,12 06/07/18 (*)] Omeprazole 20 mg PO DAILY PRN 06/07/18 Polyethylene Glycol 3350 [Miralax 17 gm PO HS PRN 06/28/18 17 gm (*)] Venlafaxine Xr [Effexor Xr] 150 mg PO BID 06/28/18 Medical Decision Making - Diagnostics EKG Interpretation: EKG interpreted by me reveals normal sinus rhythm, rate 77, no ST or T segment changes. Interpretation: Normal EKG Imaging Results: Imaging Impressions Chest X-Ray 06/28/18 19:35 Impression: 1. Significant interval improvement with near-resolution of right perihilar airspace disease and resolution of right lower lobe airspace disease, compared to 06/09/2018. 2. Stable osseous metastatic disease. Imaging: I viewed and interpreted images myself ED Course/Re-evaluation: This patient presents with vomiting, generalized weakness and confusion. IV normal saline 1 L and Zofran 4 mg IV given. Labs, chest x-ray and urinalysis ordered. 8:00 p.m.-calcium level is 14, explains pt's sx of confusion, weakness and vomiting. Old labs reviewed, no prior history of hypercalcemia. Last calcium was 9.9 on 06/10/2018. Results d/w pt and her . EKG: NSR with normal intervals. IV normal saline 1 L infusing. Will order a 2nd L of IV fluids. The hospitalist service was consulted for admission. Differential Diagnosis: Altered mental status including but not limited to brain tumor, hypoglycemia, infectious process, electrolyte abnormality, head injury, CVA, and intoxicants. - Data Points Laboratory Results: Laboratory Results 06/28/18 19:07 06/28/18 19:07 06/28/18 06/28/18 06/28/18 19:07 19:07 19:07 WBC 9.64 10^3/uL H 10^3/uL (3.80-9.50) RBC 5.39 10^6/uL H 10^6/uL (4.18-5.33) Hgb 13.4 g/dL g/dL (12.6-16.3) Hct 41.3 % % (38.0-47.0) MCV 76.6 fL L fL (81.5-99.8) MCH 24.9 pg L pg (27.9-34.1) MCHC 32.4 g/dL g/dL (32.4-36.7) RDW 18.4 % H % (11.5-15.2) Plt Count 318 10^3/uL 10^3/uL (150-400) MPV 10.1 fL fL (8.7-11.7) Neut % (Auto) 82.5 % H % (39.3-74.2) Lymph % (Auto) 7.0 % L % (15.0-45.0) [place] % (Auto) 9.8 % % (4.5-13.0) Eos % (Auto) 0.3 % L % (0.6-7.6) Baso % (Auto) 0.3 % % (0.3-1.7) Nucleat RBC Rel Count 0.0 % % (0.0-0.2) Absolute Neuts (auto) 7.96 10^3/uL H 10^3/uL (1.70-6.50) Absolute Lymphs (auto) 0.67 10^3/uL L 10^3/uL (1.00-3.00) Absolute Monos (auto) 0.94 10^3/uL H 10^3/uL (0.30-0.80) Absolute Eos (auto) 0.03 10^3/uL 10^3/uL (0.03-0.40) Absolute Basos (auto) 0.03 10^3/uL 10^3/uL (0.02-0.10) Absolute Nucleated RBC 0.00 10^3/uL 10^3/uL (0-0.01) Immature Gran % 0.1 % % (0.0-1.1) Immature Gran # 0.01 10^3/uL 10^3/uL (0.00-0.10) Sodium 133 mEq/L L mEq/L (135-145) Potassium 3.8 mEq/L mEq/L (3.5-5.2) Chloride 100 mEq/L mEq/L (97-110) Carbon Dioxide 24 mEq/l mEq/l (22-31) Anion Gap 9 mEq/L mEq/L (6-14) BUN 13 mg/dL mg/dL (7-23) Creatinine 0.8 mg/dL mg/dL (0.6-1.0) Estimated GFR > 60 Glucose 93 mg/dL mg/dL (70-100) Calcium 14.0 mg/dL H* mg/dL (8.5-10.4) Phosphorus 3.9 mg/dL mg/dL (2.5-4.5) Total Bilirubin 1.4 mg/dL mg/dL (0.1-1.4) Conjugated Bilirubin 0.8 mg/dL H mg/dL (0.0-0.5) Unconjugated Bilirubin 0.6 mg/dL mg/dL (0.0-1.1) AST 340 IU/L H IU/L (14-46) ALT 121 IU/L H IU/L (9-52) Alkaline Phosphatase 813 IU/L H IU/L (38-126) Total Protein 7.6 g/dL g/dL (6.3-8.2) Albumin 3.9 g/dL g/dL (3.5-5.0) Lipase 45 IU/L IU/L (23-300) PTH Intact 8.5 pg/mL L pg/mL (10.8-79.4) Calcium (PTH Intact) Pending Creat (PTH Intact) 0.8 mg/dL mg/dL (0.6-1.0) Phosph (PTH Intact) 3.8 mg/dL mg/dL (2.5-4.5) Medications Given: Discontinued Medications Sodium Chloride (Ns) 1,000 mls @ 0 mls/hr IV EDNOW ONE; Wide Open PRN Reason: Protocol Stop: 06/28/18 18:51 Last Admin: 06/28/18 19:08 Dose: 1,000 mls Sodium Chloride (Ns) 1,000 mls @ 0 mls/hr IV ONCE ONE; Wide Open PRN Reason: Protocol Stop: 06/28/18 19:57 Last Admin: 06/28/18 20:03 Dose: 1,000 mls Ondansetron HCl (Zofran) 4 mg IVP EDNOW ONE Stop: 06/28/18 18:51 Last Admin: 06/28/18 19:14 Dose: 4 mg Departure - Departure Disposition: [facility] Acute Clinical Impression: Hypercalcemia Condition: Good
--- NOTE | 2018-06-28 21:03 | CPEKG ---
Test Reason : OPEN Blood Pressure : / mmHG Vent. Rate : 077 BPM Atrial Rate : 077 BPM P-R Int : 153 ms QRS Dur : 101 ms QT Int : 374 ms P-R-T Axes : 070 029 057 degrees QTc Int : 424 ms Sinus rhythm Confirmed by Lily Bonner ([id number]) on 06/28/2018 9:02:36 PM Referred By: Confirmed By:Lily Bonner
[2018-06-28] MEDS ORDERED: ONDANSETRON 4 MG/2 ML VIAL IVP PRN (21:20)
[2018-06-28] MEDS ORDERED: oxyCODONE IR 5 MG TAB PO PRN (21:20)
[2018-06-28] MEDS ORDERED: DOCUSATE SODIUM 100 MG CAP PO PRN (21:25)
[2018-06-28] MEDS ORDERED: POLYETHYLENE GLYCOL 3350 17 GM PKT PO PRN (21:25)
[2018-06-28] MEDS ORDERED: NS 1,000 ML IV SCH (21:30)
[2018-06-28] MEDS ORDERED: CALCITONIN 200 UNITS/ML SYR SC ONE (21:31)
[2018-06-28] MEDS ORDERED: ZOLEDRONIC ACID 4 MG in D5W 100 ML IV ONE (21:32)
--- NOTE | 2018-06-28 21:50 | PDGENHP ---
History and Physical - Chief Complaint confusion - History of Present Illness 63yo F with metastatic breast cancer brought in by due to worsening confusion and weakness. Patient unable to tell me much due to altered mental status. She says she's been too weak to write. Discussed with . Hadn't been feeling that great since discharge from hospital a few days before [facility] where she was treated for pneumonia. Became progressively more confused and weak, especially over the last few days. Unable to walk on own. Has been drinking a lot of water but not much solid food intake. Some nausea. Has been having mostly regular BMs, no diarrhea. No fevers. Breathing ok but has been using oxygen when sleeping since last discharge. Started new oral chemotherapy 2 days ago. Evaluation in ED showed serum calcium of 14, was 9.9 on 06/10. She was given 2L of normal saline. Case discussed with ED physician Lily Bonner. History Information - Allergies/Home Medication List Allergies/Adverse Reactions: oxycodone Allergy (Mild, Verified 06/28/18 18:44) Itching Home Medications: morphINE SR [Ms Contin/Oramorph 15 mg (*)] 15 mg PO BID 07/29/17 [Last Taken 12/09] HYDROmorphone HCL [Dilaudid 2 mg (*)] 1 - 2 mg PO Q3HRS PRN 10/04/17 [Last Taken 06/28/18] Sennosides [Senna Lax] 8.6 mg PO DAILY PRN 10/04/17 [Last Taken 06/28/18] Cholecalciferol (Vitamin D3) [Vitamin D3] 1,000 unit PO DAILY 01/03/18 [Last Taken 06/24/18] Docusate Sodium [Dulcolax Stool Softener] 1 cap PO DAILY PRN 01/03/18 [Last Taken 12/31/17] Gabapentin [Neurontin 300 MG (*)] 300 mg PO BID 01/03/18 [Last Taken 06/28/18] Rivaroxaban [Xarelto] 20 mg PO DAILY 01/03/18 [Last Taken 06/28/18] LORazepam [Ativan (*)] 1 mg PO TID PRN 06/07/18 [Last Taken 06/28/18] Methylphenidate HCl [Ritalin 5mg (*)] 5 mg PO BID@06/07/18 [Last Taken 12/09] Omeprazole 20 mg PO DAILY PRN 06/07/18 [Last Taken 06/21/18] Polyethylene Glycol 3350 [Miralax 17 gm (*)] 17 gm PO HS PRN 06/28/18 [Last Taken 06/23/18] Venlafaxine Xr [Effexor Xr] 150 mg PO BID 06/28/18 [Last Taken 06/28/18] I have personally reviewed and updated: family history, medical history, social history, surgical history - Past Medical History Additional medical history: metastatic stage 4 breast cancer (bones, dura), PE on OAC, nocturnal hypoxia, continuous narcotic dependency, depression/anxiety, pneumonia - Surgical History Additional surgical history: right mastectomy, , port placement - Family History Additional family history: grandmother- ovarian cancer - Social History Smoking Status: Never smoked Alcohol Use: None Drug Use: None Additional social history: , is Darius. Review of Systems Review of Systems: ROS: 10pt was reviewed & negative except for what was stated in HPI & below Physical Exam Physical Exam: Temp Pulse Resp BP Pulse Ox 36.6 C 77 16 128/85 H 91 L 06/28/18 21:25 06/28/18 21:25 06/28/18 21:09 06/28/18 21:25 06/28/18 21:25 Constitutional: no apparent distress, cachectic Eyes: PERRL, anicteric sclera, EOMI Ears, Nose, Mouth, Throat: dry mucous membranes Cardiovascular: regular rate and rhythym, no murmur, rub, or gallop, No JVD, No edema Respiratory: no respiratory distress, no rales or rhonchi, clear to auscultation Gastrointestinal: tenderness (mild), No distension Genitourinary: no bladder fullness, no bladder tenderness Skin: warm, normal color, no rashes or abrasions, no fluctuance, no induration, No mottled Musculoskeletal: generalized weakness Neurologic: other (alert, not oriented, non-focal) Psychiatric: encephalopathic Lab Data & Imaging Review 06/28/18 19:07 06/28/18 19:07 WBC 9.64 10^3/uL (3.80-9.50) H 06/28/18 19:07 RBC 5.39 10^6/uL (4.18-5.33) H 06/28/18 19:07 Hgb 13.4 g/dL (12.6-16.3) 06/28/18 19:07 Hct 41.3 % (38.0-47.0) 06/28/18 19:07 MCV 76.6 fL (81.5-99.8) L 06/28/18 19:07 MCH 24.9 pg (27.9-34.1) L 06/28/18 19:07 MCHC 32.4 g/dL (32.4-36.7) 06/28/18 19:07 RDW 18.4 % (11.5-15.2) H 06/28/18 19:07 Plt Count 318 10^3/uL (150-400) 06/28/18 19:07 MPV 10.1 fL (8.7-11.7) 06/28/18 19:07 Neut % (Auto) 82.5 % (39.3-74.2) H 06/28/18 19:07 Lymph % (Auto) 7.0 % (15.0-45.0) L 06/28/18 19:07 Cascade % (Auto) 9.8 % (4.5-13.0) 06/28/18 19:07 Eos % (Auto) 0.3 % (0.6-7.6) L 06/28/18 19:07 Baso % (Auto) 0.3 % (0.3-1.7) 06/28/18 19:07 Nucleat RBC Rel Count 0.0 % (0.0-0.2) 06/28/18 19:07 Absolute Neuts (auto) 7.96 10^3/uL (1.70-6.50) H 06/28/18 19:07 Absolute Lymphs (auto) 0.67 10^3/uL (1.00-3.00) L 06/28/18 19:07 Absolute Monos (auto) 0.94 10^3/uL (0.30-0.80) H 06/28/18 19:07 Absolute Eos (auto) 0.03 10^3/uL (0.03-0.40) 06/28/18 19:07 Absolute Basos (auto) 0.03 10^3/uL (0.02-0.10) 06/28/18 19:07 Absolute Nucleated RBC 0.00 10^3/uL (0-0.01) 06/28/18 19:07 Immature Gran % 0.1 % (0.0-1.1) 06/28/18 19:07 Immature Gran # 0.01 10^3/uL (0.00-0.10) 06/28/18 19:07 Sodium 133 mEq/L (135-145) L 06/28/18 19:07 Potassium 3.8 mEq/L (3.5-5.2) 06/28/18 19:07 Chloride 100 mEq/L (97-110) 06/28/18 19:07 Carbon Dioxide 24 mEq/l (22-31) 06/28/18 19:07 Anion Gap 9 mEq/L (6-14) 06/28/18 19:07 BUN 13 mg/dL (7-23) 06/28/18 19:07 Creatinine 0.8 mg/dL (0.6-1.0) 06/28/18 19:07 Estimated GFR > 60 06/28/18 19:07 Glucose 93 mg/dL (70-100) 06/28/18 19:07 Calcium 14.0 mg/dL (8.5-10.4) H* 06/28/18 19:07 Phosphorus 3.9 mg/dL (2.5-4.5) 06/28/18 19:07 Total Bilirubin 1.4 mg/dL (0.1-1.4) 06/28/18 19:07 Conjugated Bilirubin 0.8 mg/dL (0.0-0.5) H 06/28/18 19:07 Unconjugated Bilirubin 0.6 mg/dL (0.0-1.1) 06/28/18 19:07 AST 340 IU/L (14-46) H 06/28/18 19:07 ALT 121 IU/L (9-52) H 06/28/18 19:07 Alkaline Phosphatase 813 IU/L (38-126) H 06/28/18 19:07 Total Protein 7.6 g/dL (6.3-8.2) 06/28/18 19:07 Albumin 3.9 g/dL (3.5-5.0) 06/28/18 19:07 Lipase 45 IU/L (23-300) 06/28/18 19:07 PTH Intact 8.5 pg/mL (10.8-79.4) L 06/28/18 19:07 Calcium (PTH Intact) 13.9 mg/dL (8.5-10.4) H* 06/28/18 19:07 Creat (PTH Intact) 0.8 mg/dL (0.6-1.0) 06/28/18 19:07 Phosph (PTH Intact) 3.8 mg/dL (2.5-4.5) 06/28/18 19:07 Visualized and Interpreted Chest x-ray results: Yes Visualized and Interpreted imaging results: Yes Interpretation: CXR: port in place, no infiltrate or effusion, no pulmonary edema Visualized and Interpreted EKG results: Yes EKG additional interpertation: ECG: NSR, no ischemic changes, no significant conduction disturbances Assessment & Plan Assessment: 63yo F with metastatic breast cancer brought in by due to worsening confusion and weakness found to be hypercalcemic. Plan: 1. Severe hypercalcemia: Symptomatic. Likely combo of dehydration and r/t malignancy. Poor prognostic sign. - s/p 2L NS in ED. will give 3rd L now and start mIVF - calcitonin - zoledronic acid 4mg IV x1 - recheck calcium in AM 2. Acute metabolic encephalopathy: Related to hypercalcemia. - mgmt of hyperCa as above, hold on scanning head - holding centrally acting meds (long-acting morphine, ativan) as able 3. Metastatic breast cancer: Mets to liver, bone, dura. Recently started new PO chemo 2 days ago. - alert oncology of admission - palliative care already involved in her care 4. Transaminitis: Related to hepatic mets. - monitor 5. Chronic pain on opioids: - limiting centrally acting meds as able. Will make her PRN PO dilaudid available. Holding MS contin. 6. Depression/anxiety: - continue venlafaxine, hold ativan 7. History of PE - continue xarelto 8. Hyponatremia: Hypovolemic - IVF and recheck in AM VTE ppx: therapeutic anticoagulation Code: DNR/DNI Diet: regular Dispo: Admit as inpatient
[2018-06-28] MEDS: HYDROmorphONE/DILAUDID 2 MG TAB PO PRN (22:24)
[2018-06-28] MEDS ORDERED: HYDROmorphONE/DILAUDID 2 MG TAB PO ONE (23:21)
[2018-06-28] MEDS: NS 1,000 ML IV SCH (23:30)
[2018-06-29 05:29] LABS: PLATELET COUNT 207 10^3/uL (150-400)
--- NOTE | 2018-06-29 08:18 | ASMTLACE ---
EDNA Acuity / Level of Answers: Yes Care: Did the patient have an inpatient admission? Comorbidities - select Answers: Any tumor (including all that apply lymphoma or leukemia) Opioid dependence / Chronic pain Other Notes: Hx of PE # of Emergency department Answers: 3-4 visits in the last 6 months Social determinants Answers: Mental health diagnosis (anxiety, depression, pers onality disorders, etc.) Score: 16 Date Signed: 06/29/2018 08:17 AM Electronically Signed By:Jordyn Sandhu
[2018-06-29] MEDS ORDERED: PANTOPRAZOLE SODIUM 40 MG TAB PO PRN (09:00)
[2018-06-29] MEDS ORDERED: ENOXAPARIN 40 MG/0.4 ML SYR SC SCH (09:00)
--- NOTE | 2018-06-29 09:27 | PDMN ---
Medical Necessity Medical necessity: MCG GRG Hypercalcemia: 3 days: pt presents with AMS, confusion, weakness found to have Ca of 14, PMHx Met. Br Ca. pt just started new oral chemo 2 days ago. PT recently DC for tx of PNA., anticipate > 2 MN ongoing med nec care- further monitoring and tx needed.
[2018-06-29] MEDS: VENLAFAXINE XR 150 MG CAP PO SCH ×2 (09:47→20:50)
[2018-06-29] MEDS: RIVAROXABAN 20 MG TAB PO SCH (09:48)
[2018-06-29] MEDS: ACETAMINOPHEN 325 MG TAB PO PRN ×2 (15:23→23:54)
[2018-06-29] MEDS ORDERED: GADOBUTROL 10 ML VIAL IVP ONE (16:56)
--- NOTE | 2018-06-29 17:17 | HOSPPROG ---
Hospitalist Progress Note Assessment/Plan: The patient is a 63-year-old female with PMH metastatic breast cancer who was admitted for hypercalcemia. ASSESSMENT/PLAN: Hypercalcemia, improved St IV Breast cancer w/ mets to bone/liver Acute encephalopathy -Continue IV fluids. Decrease to maintenance rate. -Monitor electrolytes closely and replace as needed, since pt received zoledronic acid. -Discussed w/ Oncology -- hypercalcemia is often from progression of cancer. Pt just started a new BRCA targeted chemotherapy which hopefully can help. -MRI brain to r/o mets. -PT/OT/ISU. VTE prophylaxis: Xarelto Code Status: DNR Status: inpt for > 2 midnight stay. Disposition: [facility] ____ SUBJECTIVE: OBJECTIVE: Physical Exam: General: The patient is a female who is alert and in no acute distress. HEENT: normocephalic, extraocular movements intact, conjunctivae clear. Mucous membranes moist. Neck: trachea midline, no visible masses. Resp: unlabored. Abd: soft and nondistended. Musculoskeletal: Normal muscle tone/bulk. Insert patient ambulating with PT. Neuro: cranial nerves II XII grossly intact. Intact gross motor and sensory function. Psych: Appropriate mood and appropriate affect. Forgetful. Skin: No pallor. No petechiae. Heme/lymph: No peripheral edema at bilateral lower extremities. Labs/Imaging/Other Tests: Personally reviewed/interpreted. Objective: Vital Signs Temp Pulse Resp BP Pulse Ox 36.8 C 69 16 131/79 H 97 06/29/18 16:16 06/29/18 16:16 06/29/18 16:16 06/29/18 16:16 06/29/18 16:16 Laboratory Results 06/29/18 04:40 06/29/18 04:40 06/28/18 06/29/18 06/30/18 05:59 05:59 05:59 Intake Total 2500 1805 Output Total 500 Balance 2000 1805 - Time Spent With Patient Time Spent with Patient: greater than 35 minutes Time Spent with Patient: Greater than 35 minutes spent on this patients care, greater than 50% of time spent counseling, educating, and coordinating care regarding the above mentioned plan. ICD10 Worksheet Patient Problems: Problems Problem Status Onset Hypercalcemia Acute Abdominal pain Acute Anemia Acute Chemotherapy adverse reaction Acute Fever Acute Hip pain Acute Hypoxia Acute Metastatic breast cancer Acute Pneumonia Acute Pulmonary embolism Acute
[2018-06-29] MEDS: OLAPARIB 150 MG PO SCH ×2 (19:24→19:45)
[2018-06-29] MEDS: NS 1,000 ML IV SCH (19:27)
--- NOTE | 2018-06-29 19:44 | GCON ---
HISTORY OF PRESENT ILLNESS: The patient is a 63-year-old female, who has a history of metastatic hermes ast cancer. She was initially diagnosed with breast cancer in 2010. She had stage IIIC disease and was treated with mastectomy, adjuvant chemotherapy, and antiestrogen therapy. She recurred in 2015 a nd has been treated with a variety of antiestrogen therapies, as well as Taxol on a clinical trial wi and without Alisertib. She has also received Xeloda and eribulin, but more recently has been prog ressing with bone and hepatic metastases. She has also had a known dural metastasis, which has been treated with stereotactic radiosurgery. 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 She presented to [facility] Emergency Room with alter ed mental status and was noted to be hypercalcemic with a calcium of 14. She was treated with Zometa and intravenous hydration. Today, she feels a bit better, and her calcium has decreased to 11. PAST MEDICAL HISTORY: Significant for breast cancer as detailed above, anxiety, depression, recurren t pulmonary embolic issues, and pneumonia. SURGERIES: Include right mastectomy, port placement, and a . FAMILY HISTORY: A grandmother had ovarian cancer. SOCIAL HISTORY: She is to her . REVIEW OF SYSTEMS: She is tired. She denies any particular pain at this time, although is on chroni c pain medicines. PHYSICAL EXAMINATION: GENERAL: Today, she is reasonably alert. VITAL SIGNS: Blood pressure 111/71 , saturation 97% on 1 L, and temperature 97.9. HEENT: She is not icteric. I detect no adenopathy. LUNGS: Clear. CARDIAC: Exam is unremarkable. ABDOMEN: Benign. CHEST WALL: She has a port in h er right chest. NEUROLOGIC: Exam is generally nonfocal. LABORATORY DATA: White count is 6.4, hemoglobin 10.1, hematocrit 31.6, and platelets 207,000. Calci um as noted has decreased to 11.1, alkaline phosphatase is 501, AST is 237, ALT is 88, albumin is 2.6 , and bilirubin is 0.9. IMPRESSION: Patient with hypercalcemia of malignancy related to progressive disease, recently starte d on a PARP inhibitor called olaparib. There is some hope given her somatic BRCA mutation that this will be effective in treating her cancer. I agree with plans for hydration, and monitoring her ins, outs, and calcium. I have instructed her to bring in the Lynparza, and she can take it in [facility]. She was due for followup MRI of the brain to evaluate her skull metastasis, and we will order that during her hospital stay. Our service will follow with you. /[id number]/MODL
[2018-06-29] MEDS: MELATONIN 3 MG TAB PO PRN (22:51)
[2018-06-29] MEDS: HYDROmorphONE/DILAUDID 2 MG TAB PO PRN (22:52)
[2018-06-30] MEDS ORDERED: MAGNESIUM SULF 2 GM/WATER 50 ML IV ONE (11:15)
--- NOTE | 2018-06-30 11:20 | SOAPPROG ---
SOAP Progress Note Assessment/Plan: Assessment: 1. metastatic breast cancer 2. Hypercalcemia malignancy, improved 3.somatic brca mutation 4. dural mets, mri shows irradiated area better, perhaps sl worsening leptomeningeal disease on left Plan:Continue lynparza, hydration, 06/30/18 11:17 Subjective: Feels a bit better, occ hallucinations, some constipation Objective: Vital Signs Temp Pulse Resp BP Pulse Ox 97.4 F 77 14 123/88 H 97 06/30/18 08:00 06/30/18 08:00 06/30/18 08:00 06/30/18 08:00 06/30/18 08:00 Laboratory Results 06/29/18 04:40 06/30/18 03:15 06/29/18 06/30/18 07/01/18 05:59 05:59 05:59 Intake Total 2500 3067 Output Total 500 Balance 19997 ICD10 Worksheet Patient Problems: Problems Problem Status Onset Hypercalcemia Acute Abdominal pain Acute Anemia Acute Chemotherapy adverse reaction Acute Fever Acute Hip pain Acute Hypoxia Acute Metastatic breast cancer Acute Pneumonia Acute Pulmonary embolism Acute
[2018-06-30] MEDS: HYDROmorphONE/DILAUDID 2 MG TAB PO PRN ×2 (11:34→21:16)
[2018-06-30] MEDS: VENLAFAXINE XR 150 MG CAP PO SCH ×2 (11:35→21:17)
[2018-06-30] MEDS: RIVAROXABAN 20 MG TAB PO SCH (11:35)
[2018-06-30] MEDS: OLAPARIB 150 MG PO SCH ×2 (11:43→21:21)
[2018-06-30] MEDS: SENNOSIDES 1 TAB PO PRN (11:57)
--- NOTE | 2018-06-30 13:56 | ASMTCMCOM ---
CM Note CM Note Notes: Patient well know to CM. Multiple admissions, Presents with confusion, weakness. Per therapy would benefit form HHC. Plan of care reviewed with hospitalist and likely not ready for a few days. [place] will round tomorrow. Plan: TBD Date Signed: 06/30/2018 01:56 PM Electronically Signed By:Vashti Dent RN
[2018-06-30] MEDS: POTASSIUM/SODIUM PHOSPHATE 1 PKT PO SCH ×3 (17:06→23:06)
--- NOTE | 2018-06-30 19:44 | HOSPPROG ---
Hospitalist Progress Note Assessment/Plan: The patient is a 63-year-old female with PMH metastatic breast cancer who was admitted for hypercalcemia. ASSESSMENT/PLAN: Hypercalcemia, improved St IV Breast cancer w/ mets to bone/liver Encephalopathy - now at baseline Hypomagnesemia Hypophosphatemia. -IVF, maintenance rate. -Monitor electrolytes closely and replace as needed, since pt received zoledronic acid. -Phos, mag replacement today. -Discussed w/ Oncology -- hypercalcemia is often from progression of cancer. Pt just started a new BRCA targeted chemotherapy which hopefully can help. Dr. Terrazas can continue to give calcium lowering meds in the office and is ok w/ calcium goal around 11. -PT/OT/ISU. VTE prophylaxis: Xarelto Code Status: DNR Status: inpt for > 2 midnight stay. Disposition: [facility] ____ SUBJECTIVE: OBJECTIVE: Physical Exam: General: The patient is a female who is alert and in no acute distress. HEENT: normocephalic, extraocular movements intact, conjunctivae clear. Mucous membranes moist. Neck: trachea midline, no visible masses. Resp: unlabored. Abd: soft and nondistended. Musculoskeletal: Normal muscle tone/bulk. Insert patient ambulating with PT. Neuro: cranial nerves II - XII grossly intact. Intact gross motor and sensory function. Psych: Appropriate mood and appropriate affect. Skin: No pallor. No petechiae. Heme/lymph: No peripheral edema at bilateral lower extremities. Labs/Imaging/Other Tests: Personally reviewed/interpreted. MRI brain report reviewed. Objective: Vital Signs Temp Pulse Resp BP Pulse Ox 36.8 C 75 16 142/85 H 98 06/30/18 19:32 06/30/18 19:32 06/30/18 19:32 06/30/18 19:32 06/30/18 19:32 Laboratory Results 06/29/18 04:40 06/30/18 03:15 06/29/18 06/30/18 07/01/18 05:59 05:59 05:59 Intake Total 2500 3067 1543 Output Total 500 Balance 1999 0390 1544 - Time Spent With Patient Time Spent with Patient: greater than 35 minutes Time Spent with Patient: Greater than 35 minutes spent on this patients care, greater than 50% of time spent counseling, educating, and coordinating care regarding the above mentioned plan. ICD10 Worksheet Patient Problems: Problems Problem Status Onset Hypercalcemia Acute Abdominal pain Acute Anemia Acute Chemotherapy adverse reaction Acute Fever Acute Hip pain Acute Hypoxia Acute Metastatic breast cancer Acute Pneumonia Acute Pulmonary embolism Acute
[2018-06-30] MEDS: ONDANSETRON DISINTEGRATING 4 MG TAB PO PRN (21:01)
[2018-06-30] MEDS: MELATONIN 3 MG TAB PO PRN (21:16)
[2018-07-01] MEDS: NS 1,000 ML IV SCH ×2 (00:11→10:09)
[2018-07-01] MEDS: HYDROmorphONE/DILAUDID 2 MG TAB PO PRN ×3 (02:20→12:43)
[2018-07-01] MEDS: VENLAFAXINE XR 150 MG CAP PO SCH ×2 (08:23→20:51)
[2018-07-01] MEDS: SENNOSIDES 1 TAB PO PRN (08:23)
[2018-07-01] MEDS: RIVAROXABAN 20 MG TAB PO SCH (08:23)
[2018-07-01] MEDS: OLAPARIB 150 MG PO SCH ×2 (08:24→20:51)
[2018-07-01] MEDS: POTASSIUM/SODIUM PHOSPHATE 1 PKT PO SCH ×4 (10:09→22:42)
--- NOTE | 2018-07-01 12:19 | SOAPPROG ---
SOAP Progress Note Assessment/Plan: Assessment: 1. metastatic breast cancer 2. Hypercalcemia malignancy, improved 3.somatic brca mutation 4. dural mets, mri shows irradiated area better, perhaps sl worsening leptomeningeal disease on left Plan:despite improvement calcium she remains week and sometimes confused, she is also off most of her pain meds. Does not want to go home today, ? home with homecare versus snf 06/30/18 11:17 07/01/18 12:16 Subjective: Weak Objective: Vital Signs Temp Pulse Resp BP Pulse Ox 97.8 F 77 16 107/76 98 07/01/18 11:57 07/01/18 11:57 07/01/18 11:57 07/01/18 11:57 07/01/18 11:57 Laboratory Results 06/29/18 04:40 07/01/18 05:10 06/30/18 07/01/18 07/02/18 05:59 05:59 05:59 Intake Total 3067 2616 Output Total 1250 Balance 3067 1366 Physical Exam - Physical Exam Neuro/Psych: alert, other (occasionally seems a bit confused) ICD10 Worksheet Patient Problems: Problems Problem Status Onset Hypercalcemia Acute Abdominal pain Acute Anemia Acute Chemotherapy adverse reaction Acute Fever Acute Hip pain Acute Hypoxia Acute Metastatic breast cancer Acute Pneumonia Acute Pulmonary embolism Acute
--- NOTE | 2018-07-01 12:34 | ASMTCMCOM ---
CM Note CM Note Notes: Patient plan of care reviewed in am rounds. 63 year old female with metastatic breast cancer admitted with weakness and AMS. 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 Will likely need HHC as well. Will speak to her . Plan: To dc to home with HHC and [facility] palliative care. Date Signed: 07/01/2018 12:33 PM Electronically Signed By:Vashti Dent RN
[2018-07-01] MEDS ORDERED: PROTOCOL POTASSIUM 1 DOSE MISC PRN (12:55)
[2018-07-01] MEDS ORDERED: PROTOCOL MAGNESIUM 1 DOSE IV PRN (12:55)
[2018-07-01] MEDS ORDERED: MAGNESIUM SULF 2 GM/WATER 50 ML IV ONE (12:56)
[2018-07-01] MEDS ORDERED: POTASSIUM CL 20 MEQ/15 ML UDCUP PO ONE (12:56)
--- NOTE | 2018-07-01 13:01 | HOSPPROG ---
Hospitalist Progress Note Assessment/Plan: The patient is a 63-year-old female with PMH metastatic breast cancer who was admitted for hypercalcemia. ASSESSMENT/PLAN: Hypercalcemia, improved. Ca: 10.1 St IV Breast cancer w/ mets to bone/liver Encephalopathy with Hallucinations. Etiology likely multifactorial. Still with intermittent Hallucinations. Hypomagnesemia Hypophosphatemia. Hypokalemia Generalized Weakness, metabolic Chronic Pain Syndrome Chronic AC with hx of PE. Anemia Plan: Trial off IVF still having Hallucinations, for now cont to hold home meds (MS Sulfate, Ativan , Gabapentin) She reports she will refuse Ritalin replace K, Mg stool regimen Xarelton DNR Dispo: cont inpatient Subjective: per nursing has been having intermittent hallucinations. Seems clear currently. Had some pain earlier but appears comfortable Objective: Vital Signs Temp Pulse Resp BP Pulse Ox 36.6 C 77 16 107/76 98 07/01/18 11:57 07/01/18 11:57 07/01/18 11:57 07/01/18 11:57 07/01/18 11:57 Laboratory Results 06/29/18 04:40 07/01/18 05:10 06/30/18 07/01/18 07/02/18 05:59 05:59 05:59 Intake Total 3067 2616 Output Total 1250 Balance 3067 1366 - Physical Exam Constitutional: chronically ill appearing Eyes: PERRL, EOMI Ears, Nose, Mouth, Throat: moist mucous membranes, hearing normal Cardiovascular: regular rate and rhythym, No edema Respiratory: no respiratory distress, no rales or rhonchi, clear to auscultation Gastrointestinal: normoactive bowel sounds Skin: warm Neurologic: AAOx3 Psychiatric: interacting appropriately, not anxious, not encephalopathic Lymph, Heme, Immunologic: No petechiae ICD10 Worksheet Patient Problems: Problems Problem Status Onset Hypercalcemia Acute Abdominal pain Acute Anemia Acute Chemotherapy adverse reaction Acute Fever Acute Hip pain Acute Hypoxia Acute Metastatic breast cancer Acute Pneumonia Acute Pulmonary embolism Acute
--- NOTE | 2018-07-01 16:46 | PDPCPN ---
Palliative Care Progress Note Assessment/Plan: Assessment: Palliative Visit Name: Edelmira Landa : 1955 Visit Type: Hospital palliative care visit [facility] Date: 07/01/2018 DIAGNOSES: 1. Stage III Metastatic Breast Cancer 2. 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 Her most recent scans indicate progressive disease primarily in the liver. She has again been admitted [facility] for increased confusion. She was found to be markedly hypercalcemic with a level of 14. She has been treated with fluids as well as zoledronic acid. She had started her new BRCA oral medication approximately 5 days prior to hospitalization. Her confusion has significantly improved. We had discussions today regarding the differences between palliative care and hospice care. She would like more assistance at home and we discussed that she may need to look for a self paid caregiver. Code Status: DNR MDPOA: Darius Landa (spouse) Patient Goals of Care: 1. Continue with treatment 2. Continued comfort Review of Symptoms: General: denies malaise, reports fatigue Respiratory: denies cough, wheezing, denies dyspnea, Complaint of some shortness of breath Cardiovascular: denies hx of heart disease, denies chest pain, denies edema GI: reports nausea, constipation, reports abdominal pain : denies dysuria, frequency MS: reports back pain, (L) hip pain improved; arthralgia. Neuro: denies dizziness, reports weakness, memory good Psych: hx of depression or treatment for psychiatric disorders, denies insomnia , appetite loss Palliative Performance Score: 60% Amb reduced, Unable to do hobby/housework, Self-care/occ assist, Intake normal/reduced, LOC full or confusion OBJECTIVE FINDINGS Vital Signs: Current weight: Neuro: A&O to person, place, speech clear and coherent, able to understand situation, no tremors, no paresis HEENT: Normocephalic; atraumatic; no dysphagia, without oral lesions RESP: Diminished breath sounds throughout. CARD: RRR, no edema GI: abd. Soft, tender, positive bowel sounds x4 : no dysuria or hematuria MSK: mild muscle wasting, ambulation not visualized EXTREMITIES: DP/PT palpable, LE cool SKIN: intact LAB Data: n/a Active Symptoms/Assessment & Recommendations 1. Fatigue/weakness- help with ADLs, frequent naps, educated on some mild exercise daily, reviewed fall precautions, lives with daughter and 2. Pain- left hip pain, thoracic pain 08/02, MS Contin 15mg BID, Dilaudid 2mg 1 -2 tabs Q 4 hrs PRN, 3. Constipation-intermittent, educated on effects of opioids on constipation, Senna 2 tabs BID, Miralax PRN, encourage fluids, prunes daily; daily activity 4. Anxiety- Diazepam 5mg Q 4hrs PRN, she is out of med and awaiting rx; meditation, seeing [facility] for support, finds strength in her family 5. Metastatic breast carcinoma C 50.919: Progressive disease. has started new BRCA oral medication Caregiver Strain: No, lives with spouse and grown daughter Prognosis: months Hospice Eligibility: Yes, goals not aligned Recommended Hospice Admitting Diagnosis: n/a Disposition: living safely and comfortably at home PLAN: Level of Care: Hospice eligible LUNCHROOM WORKER: will schedule community palliative LUNCHROOM WORKER visit prior to discharge PRODUCTION CONTROL PLANNER: yes, emotional support, and resources Fax Visit Notes to PCP/Specialists: Dr. Terrazas [facility] PALLIATIVE SUMMARY: Thank you for the opportunity to participate in the care of this patient. TIME SPENT [id number] 35 min >50% of the time spent counseling, educating and coordinating the above topics. Lux Espinal [facility] Plan: 07/01/18 16:46 Objective: Vital Signs Temp Pulse Resp BP Pulse Ox 37.2 C 88 16 100/61 95 07/01/18 16:29 07/01/18 16:29 07/01/18 16:29 07/01/18 16:29 07/01/18 16:29 Laboratory Results 06/29/18 04:40 07/01/18 05:10 06/30/18 07/01/18 07/02/18 05:59 05:59 05:59 Intake Total 3061 2616 Output Total 1250 Balance 3067 1366 ICD10 Worksheet Patient Problems: Problems Problem Status Onset Hypercalcemia Acute Abdominal pain Acute Anemia Acute Chemotherapy adverse reaction Acute Fever Acute Hip pain Acute Hypoxia Acute Metastatic breast cancer Acute Pneumonia Acute Pulmonary embolism Acute
[2018-07-01] MEDS ORDERED: POTASSIUM CL 10 MEQ TAB PO ONE (20:36)
[2018-07-01] MEDS ORDERED: POTASSIUM CL 20 MEQ PKT PO ONE (20:45)
[2018-07-01] MEDS: MELATONIN 3 MG TAB PO PRN (22:42)
[2018-07-02] MEDS: HYDROmorphONE/DILAUDID 2 MG TAB PO PRN ×4 (02:18→21:40)
[2018-07-02] MEDS ORDERED: POTASSIUM CL 10 MEQ TAB PO ONE ×2 (06:14→21:05)
[2018-07-02] MEDS ORDERED: MAGNESIUM SULF 1 GM/DEXTROSE 100 ML IV ONE (07:56)
[2018-07-02] MEDS: POTASSIUM/SODIUM PHOSPHATE 1 PKT PO SCH ×4 (08:22→21:40)
[2018-07-02] MEDS: RIVAROXABAN 20 MG TAB PO SCH (08:22)
[2018-07-02] MEDS: VENLAFAXINE XR 150 MG CAP PO SCH ×2 (08:22→21:40)
[2018-07-02] MEDS: OLAPARIB 150 MG PO SCH ×2 (09:26→21:45)
[2018-07-02] MEDS: ONDANSETRON DISINTEGRATING 4 MG TAB PO PRN (09:27)
--- NOTE | 2018-07-02 11:54 | PDDCSUM ---
Discharge Summary Discharge Summary: The patient is a 63-year-old female with PMH metastatic breast cancer who was admitted for hypercalcemia. She was treated accordingly. Calcium is now normal. She was also found to have profound weakness and this has improved significantly. She presented with Encephalopathy and this is much improved although she does have mild impairment which is likely her baseline. Family will provide 24/ support. Oncology was consulted and she will f/u with them per their schedule. DDX: Hypercalcemia, improved. Ca: 10.1 St IV Breast cancer w/ mets to bone/liver Encephalopathy with Hallucinations. Etiology likely multifactorial. Still with intermittent Hallucinations. Hypomagnesemia Hypophosphatemia. Hypokalemia Generalized Weakness, metabolic Chronic Pain Syndrome Chronic AC with hx of PE. Anemia Meds: see med rec: MS Contin, Gabapentin, Ritalin, and Ativan were stopped. She did not need these during this hospitalization. Exam: NAD AAO RRR CTA S/NT/ND TOTAL TIME SPENT ON D/C IS 35 MINS
--- NOTE | 2018-07-02 12:09 | PDIAF ---
- Diagnosis Diagnosis: BREAST CANCER, HYPERCALCEMIA Code Status: Do Not Resuscitate - Medication Management Discharge Medications: electronically signed and located in the Home Medication List. - Orders Services needed: Home Care, Registered Nurse, Occupational Therapy Home Care Face to Face: I certify that this patient was under my care and that I had the required [id number] encounter meeting the encounter requirements on the discharge day. My findings support the fact that the patient is homebound as defined in Home Care Face to Face Continued: CMS Chapter 7 Medicare Benefits Manual 30.1.1 , The condition of the patient is such that there exists a normal inability to leave home and consequently, leaving home would require a considerable and taxing effort. Isolation Type: None Diet Recommendation: no restrictions on diet Diet Texture: Regular Texture Diet Additional Instructions: Activity: as tolerated F/U: with Oncology as scheduled Please stop Gabapentin, Morphine Sulfate, Ativan, and Ritalin. You did not need these during this hospitalization and they can contribute to your altered mentation - Follow Up Care Current Providers and Referrals: Nessa Tapia MD [Primary Care Provider] - As per Instructions
--- NOTE | 2018-07-02 12:13 | ASMTDCNOTE ---
Case Management Discharge Discharge Order Complete? Answers: Yes Patient to Obtain Answers: via Family Medications Transportation Arranged Answers: Family/Friends Transport will Pick (Date 07/02/2018 12:00 AM & Time) Faxed Final Orders Answers: Yes Agency/Facility Transfer Answers: Yes Report Printed & Faxed to Receiving Agency Family Notified Answers: Yes Notes: son in room and by phone Discharge Comments Notes: Discussed pt in rounds and spoke with pt in the room and Darius on the phone. Family does not have resources to hire private care givers, but will be able to provide 24/7 supervision in the short term due to pt's hallucinations. OT is recommending HHC. [facility] RN and OT arranged and accepted. Referral also sent to [facility] who evaluated pt yesterday and found her appropriate for hospice or palliative. Pt and agreeable to palliative and [facility]. educated regarding differences between Palliative and hospice care. No further CM needs noted at this time. Date Signed: 07/02/2018 12:13 PM Electronically Signed By:Rosie Hogue
--- NOTE | 2018-07-02 12:19 | ASMTCMCOM ---
CM Note CM Note Notes: Addendum to DC plan: Pt already current with [facility], unclear about this. No referral needed at this time. Date Signed: 07/02/2018 12:19 PM Electronically Signed By:Rosie Hogue
[2018-07-02] MEDS ORDERED: HYDROmorphONE/DILAUDID 2 MG TAB PO ONE (13:30)
[2018-07-02] MEDS: GABAPENTIN 300 MG CAP PO SCH ×2 (16:05→20:12)
[2018-07-02] MEDS: MELATONIN 3 MG TAB PO PRN (20:12)
[2018-07-03] MEDS ORDERED: POTASSIUM CL 10 MEQ TAB PO ONE (08:27)
[2018-07-03] MEDS ORDERED: MAGNESIUM SULF 1 GM/DEXTROSE 100 ML IV ONE (08:28)
[2018-07-03] MEDS: VENLAFAXINE XR 150 MG CAP PO SCH (08:29)
[2018-07-03] MEDS: HYDROmorphONE/DILAUDID 2 MG TAB PO PRN ×2 (08:29→11:45)
[2018-07-03] MEDS: RIVAROXABAN 20 MG TAB PO SCH (08:29)
[2018-07-03] MEDS: GABAPENTIN 300 MG CAP PO SCH (08:29)
[2018-07-03] MEDS: POTASSIUM/SODIUM PHOSPHATE 1 PKT PO SCH ×2 (08:29→14:47)
[2018-07-03] MEDS: OLAPARIB 150 MG PO SCH (08:30)
[2018-07-03 08:43] VITALS: BP 121/80
--- NOTE | 2018-07-03 12:41 | PDDCSUM ---
Discharge Summary Discharge Summary: The patient is a 63-year-old female with PMH metastatic breast cancer who was admitted for hypercalcemia. She was treated accordingly. Calcium is now normal. She was also found to have profound weakness and this has improved significantly. She presented with Encephalopathy and this is much improved although she does have mild impairment which is likely her baseline. Family will provide 24/ support. Oncology was consulted and she will f/u with them per their schedule. Her d/c yesterday was held due to bilateral leg pain and Gabapentin was restarted. She has tolerated Gabapentin well with no changes to her mental status. She is now ready for d/c. DDX: Hypercalcemia, improved. Ca: 10.1 St IV Breast cancer w/ mets to bone/liver Encephalopathy with Hallucinations. Etiology likely multifactorial. Still with intermittent Hallucinations. Hypomagnesemia Hypophosphatemia. Hypokalemia Generalized Weakness, metabolic Chronic Pain Syndrome Chronic AC with hx of PE. Anemia Meds: see med rec: MS Contin, Ritalin, and Ativan were stopped. She did not need these during this hospitalization. Exam: NAD AAO RRR CTA S/NT/ND TOTAL TIME SPENT ON D/C IS 35 MINS
--- NOTE | 2018-07-03 13:40 | ASMTCMCOM ---
CM Note CM Note Notes: Addendum to CM Discharge Summary: Pt discharge delayed a day due to acute pain crisis. Pt discharging now with support from [facility] and [facility] RN/PT/OT. informed of DC by phone. [facility] and JACKELYN able to access records through [facility]. Pt and informed that PT will come to house on Friday and RN on Friday. Family also providing 24/ supervision in the short term. RN given number for RN report. No further CM needs noted at this time. Date Signed: 07/03/2018 01:39 PM Electronically Signed By:Rosie Hogue
--- NOTE | 2018-07-03 13:42 | ASDISCHSUM ---
Discharge Information Plan Status:Home with Home Health Medically Cleared to Leave:07/01/2018 Discharge Date:07/01/2018 CM D/C Disposition:Home Health Service ADT D/C Disposition:Home Health Service Projected Discharge Date:07/03/2018 11:00 AM Transportation at D/C:Family Discharge Delay Reason: Follow-Up Date:07/03/2018 11:00 AM Discharge Slot: Final Diagnosis:Breast CA with mets Placement Information Referral Type:*Home Health Care Services Referral ID:[id number] Provider Name:[facility] Address 1:[address] [address] Address 2: City:[place] Selection Factors: State:[place] Referral Type:Palliative Care Referral ID:[id number] Provider Name:[facility] Address 1:[address] [facility] Phone Number: Address 2: Fax Number: [facility]:[place] Selection Factors: State:[place] Patient Contact Information Contact Name:JORGE LUIS Relationship: Address:[address] City:[place] Alternate Phone: [facility]/Zip Code:[place] [address] Email: Financial Information Financial Class:[employer] Primary Plan Desc:YongChe Primary Plan Number:[id number] Secondary Plan Desc: Secondary Plan Number: Assessment Information LACE LACE Acuity / Level of Answers: Yes Care: Did the patient have an inpatient admission? Comorbidities - select Answers: Any tumor (including all that apply lymphoma or leukemia) Opioid dependence / Chronic pain Other Notes: Hx of PE # of Emergency department Answers: 3-4 visits in the last 6 months Social determinants Answers: Mental health diagnosis (anxiety, depression, pers onality disorders, etc.) Score: 16 Date Signed: 06/29/2018 08:17 AM Electronically Signed By:Jordyn Sandhu [facility] CM Progress Note CM Note CM Note Notes: Patient well know to CM. Multiple admissions, Presents with confusion, weakness. Per therapy would benefit form HHC. Plan of care reviewed with hospitalist and likely not ready for a few days. [facility] will round tomorrow. Plan: TBD Date Signed: 06/30/2018 01:56 PM Electronically Signed By:Vashti Dent RN [facility] CM Progress Note CM Note CM Note Notes: Patient plan of care reviewed in am rounds. 63 year old female with metastatic breast cancer admitted with weakness and AMS. 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 Will likely need [facility] as well. Will speak to her . Plan: To dc to home with [facility] and [facility]. Date Signed: 07/01/2018 12:33 PM Electronically Signed By:Vashti Dent RN [facility] CM Progress Note CM Note CM Note Notes: Addendum to DC plan: Pt already current with [facility], unclear about this. No referral needed at this time. Date Signed: 07/02/2018 12:19 PM Electronically Signed By:Rosie Hogue Case Management Discharge Plan Note Case Management Discharge Discharge Order Complete? Answers: Yes Patient to Obtain Answers: via Family Medications Transportation Arranged Answers: Family/Friends Transport will Pick (Date 07/02/2018 12:00 AM & Time) Faxed Final Orders Answers: Yes Agency/Facility Transfer Answers: Yes Report Printed & Faxed to Receiving Agency Family Notified Answers: Yes Notes: son in room and by phone Discharge Comments Notes: Discussed pt in rounds and spoke with pt in the room and Darius on the phone. Family does not have resources to hire private care givers, but will be able to provide 24/7 supervision in the short term due to pt's hallucinations. OT is recommending C. [facility] RN and OT arranged and accepted. Referral also sent to [facility] who evaluated pt yesterday and found her appropriate for hospice or palliative. Pt and agreeable to palliative and [facility]. educated regarding differences between Palliative and hospice care. No further CM needs noted at this time. Date Signed: 07/02/2018 12:13 PM Electronically Signed By:Rosie Hogue [facility] CM Progress Note CM Note CM Note Notes: Addendum to CM Discharge Summary: Pt discharge delayed a day due to acute pain crisis. Pt discharging now with support from [facility] and [facility] RN/PT/OT. informed of DC by phone. [facility] and JACKELYN able to access records through [employer]. Pt and informed that PT will come to house on Friday and RN on Friday. Family also providing 13/01 supervision in the short term. RN given number for RN report. No further CM needs noted at this time. Date Signed: 07/03/2018 01:39 PM Electronically Signed By:Rosie Hogue LACE LACE Length of stay for Answers: 4-6 days current admission Acuity / Level of Answers: Yes Care: Did the patient have an inpatient admission? Comorbidities - select Answers: Any tumor (including all that apply lymphoma or leukemia) Opioid dependence / Chronic pain Other Notes: Hx of PE # of Emergency department Answers: 3-4 visits in the last 6 months Social determinants Answers: Mental health diagnosis (anxiety, depression, pers onality disorders, etc.) Score: 20 Date Signed: 07/03/2018 01:41 PM Electronically Signed By:Rosie Hogue Intervention Information
== END 2018-07-03 15:26 | disposition home health service (06) | DRG 641 ==
LOC: F1N 21:16
PROVIDERS: ADMIT Internal Medicine; ATTEND Internal Medicine
DX: E83.52 Hypercalcemia (principal); G93.49 Other encephalopathy; R44.3 Hallucinations, unspecified; C78.7 Secondary malignant neoplasm of liver and intrahepatic bile duct; C79.49 Secondary malignant neoplasm of other parts of nervous system; C79.51 Secondary malignant neoplasm of bone; E86.9 Volume depletion, unspecified; E83.42 Hypomagnesemia; E83.39 Other disorders of phosphorus metabolism; E87.6 Hypokalemia; G89.4 Chronic pain syndrome; D64.9 Anemia, unspecified; Z85.3 Personal history of malignant neoplasm of breast; Z79.01 Long term (current) use of anticoagulants; Z86.711 Personal history of pulmonary embolism; Z90.11 Acquired absence of right breast and nipple; Z66 Do not resuscitate
CPT/HCPCS: 96374; 97110-GP; 97116-GP; 97162-GP; 97166-GO; 97530-GO; 97530-GP; 97535-GO; A9585; G0515-GO; J0630; J1642; J2405; J3475; J3489

== ENCOUNTER → 2018-08-12 | Outpatient (CLI) | payer OTHER ==
[~2018-08-12] MED LIST changes: -FLUMAZENIL 0.5 MG/5 ML MDV IVP PRN; +GADOBUTROL 10 ML VIAL IVP ONE; -MEPERIDINE 25 MG/ML SYR IVP PRN; -MIDAZOLAM 2 MG/2 ML VIAL IVP PRN; -NALOXONE HCL 0.4 MG/ML INJ IVP PRN; -NS 1,000 ML IV SCH; -fentaNYL 100 MCG/2 ML INJ IVP PRN
== END ==
LOC: FIMAGING 13:56
PROVIDERS: ATTEND Internal Medicine Hematology & Oncology
DX: C50.411 Malignant neoplasm of upper-outer quadrant of right female breast (principal); C50.919 Malignant neoplasm of unspecified site of unspecified female breast; C79.31 Secondary malignant neoplasm of brain
CPT/HCPCS: A9585